=== PATIENT | female | born 1970 | race Caucasian/White ===

== ENCOUNTER 2017-05-12 15:25 | Observation (INO) | payer OTHER ==
--- NOTE | 2017-05-12 15:52 | DR.SOBA ---
HPI - Time Seen Time seen: 16:30 - Primary Care Physician Primary Care Physician: DR. POP - Complaints Chief Complaint:: PT STATES " I AM HAD A TRIPLE BYPASS 4 MONTHS AGO AND MY ABD IS SWELLING AND SOB, AND SWELLING IN MY FEET AND LEGS". Self Treatment fo Chief Complaint: DOUBLE UP ON LASIX - Reviewed Nurses Notes Reviewed: Yes - Source History Provided: Patient - Mode of Arrival Mode of Arrival: Wheelchair - Timing Onset of Chief Complaint: 05/09/17 - Duration Duration: Days - Context PE Risk Factors:: None History of:: CHF Prehospital Care:: Furosemide - Modifying Factors Worsens:: Exertion Improves:: Sitting Up - Associated Signs and Symptoms Associated Signs and Symptoms: Leg Swelling - If Chest Pain Quality: denies: Sharp, Stabbing, Squeezing, Pressure like, Heavy, Crushing, Burning, Aching, Pleuritic, Other - If Cough Cough: None PMH - PMH Past Medical History: Yes Past Medical History: Anxiety, Depression, Hyperthyroidism Past Medical History Comment: FIBRO, AFIB WITH CARIAC ABLASION, Past Surgical History: Yes Surgical History: Angioplasty/Stents Past Surgical History Comment: TRIPLE BYPASS - Family History History of Family Medical Conditions: No - Social History Does patient currently use any type of tobacco product: No Have you used tobacco products in the last 12 months: No Type of Tobacco Use: None Does any household member use tobacco: No Alcohol Use: None Do you use any recreational Drugs:: No Lives With: Family Lives Where: Home - infectious screening In the last 2 months have you had wt loss of >10#?: NO Have you had fever, night sweats or hemotysis?: No Have you traveled outside the country in the last 6 months?: No Isolation: Standard ROS - Review of Systems Constitutional: No Symptoms Reported Eyes: No Symptoms Reported ENTM: No Symptoms Reported Respiratoy: Other (mild basilar rales) Cardiovascular: No Symptoms Reported Gastrointestinal/Abdominal: No Symptoms Reported Genitourinary: No Symptoms Reported Neurological: No Symptoms Reported Musculoskeletal: No Symptoms Reported Integumentary: No Symptoms Reported Hematologic/Lymphatic: No Symptoms Reported Endocrine: No Symptoms Reported Psychiatric: No Symptoms Reported All Other Systems: Reviewed and Negative PE - Vital Signs Vitals: Pulse Rate 75 Respiratory Rate 22 Blood Pressure 118/62 O2 Sat by Pulse Oximetry 97 - General Limitations: No Limitations General Appearance: Alert, In No Apparent Distress - Head Head Exam: Normal Inspection - Eyes Eye exam: Normal Appearance, EOMI. negative: Scleral Icterus, Conjunctival Injection - ENT ENT Exam: Normal Exam, Normal Oropharynx - Neck Neck Exam: Normal Inspection, Full ROM, Trachea Midline - Chest Chest Inspection: Normal Inspection - Respiratory Respiratory Exam: Normal Lung Sounds Bilat. negative: Accessory Muscle Use, Respiratory Distress Respiratory Exam: Bilateral Rales (mild lower lobes) - Cardiovascular Cardiovascular Exam: Regular Rate - Abdominal Exam Abdominal Exam: Normal Inspection, Normal Bowel Sounds, Soft - Extremities Extremities Exam: Edema - Back Back Exam: Normal Inspection, Full ROM - Neurologic Neurological Exam: Alert, Oriented X3, CN II-XII Intact - Psychiatric Psychiatric Exam: Depressed - Skin Skin Exam: Intact, Normal Color Course - Consultation Called: 17:30 Call Returned: 17:30 Consultation Comments: case discussed with Dr. Abel admit observation, give potassium and magnesium. ROR - Labs Reviewed Result Diagrams: 05/14/17 04:25 05/14/17 04:25 Laboratory: WBC 8.0 X10^3/uL (3.6-10.0) 05/12/17 16:11 RBC 4.12 X10^6/uL (3.5-5.4) 05/12/17 16:11 Hgb 12.1 g/dL (12.0-16.0) 05/12/17 16:11 Hct 35.4 % (36.0-47.0) L 05/12/17 16:11 MCV 85.9 fL (80.0-100.0) 05/12/17 16:11 MCH 29.4 pg (27.0-34.0) 05/12/17 16:11 MCHC 34.3 g/dL (33.0-35.0) 05/12/17 16:11 RDW 14.3 % (11.6-16.5) 05/12/17 16:11 Plt Count 262 X10^3/uL (150.0-450.0) 05/12/17 16:11 MPV 8.7 fL (7.4-11.0) 05/12/17 16:11 Neut % 68.7 % (42.0-75.0) 05/12/17 16:11 Lymph % 19.7 % (21.0-51.0) L 05/12/17 16:11 [place] % 6.8 % (0.0-13.0) 05/12/17 16:11 Eos % 4.2 % (0.9-2.9) H 05/12/17 16:11 Baso % 0.6 % (0.2-1.0) 05/12/17 16:11 Neut # 5.5 x10^3/uL (2.2-4.8) H 05/12/17 16:11 Lymph # 1.6 X10^3/uL (1.3-2.9) 05/12/17 16:11 [place] # 0.5 x10^3/uL (0.3-0.8) 05/12/17 16:11 Eos # 0.3 x10^3/uL (0.0-0.2) H 05/12/17 16:11 Baso # 0.0 X10^3/uL (0.0-0.1) 05/12/17 16:11 Absolute Nucleated RBC 0.0 /100WBC 05/12/17 16:11 INR Target Range - 05/12/17 16:11 INR 0.96 (0.8-1.3) 05/12/17 16:11 PTT 33.2 SECONDS (22.9-36.5) 05/12/17 16:11 PTT Comment - 05/12/17 16:11 Sodium 140 mmol/L (136-145) 05/12/17 16:11 Corrected Sodium TNP 05/12/17 16:11 Potassium 3.4 mmol/L (3.5-5.1) L 05/12/17 16:11 Chloride 104 mmol/L (98-107) 05/12/17 16:11 Carbon Dioxide 31.6 mmol/L (21-32) 05/12/17 16:11 BUN 10 mg/dL (7-18) 05/12/17 16:11 Creatinine 0.59 mg/dL (0.55-1.02) 05/12/17 16:11 Est GFR (MDRD) Af Amer > 60 (>60) 05/12/17 16:11 Est GFR (MDRD) Non-Af > 60 (>60) 05/12/17 16:11 Glucose 89 mg/dL (65-99) 05/12/17 16:11 Calcium 8.4 mg/dL (8.5-10.1) L 05/12/17 16:11 Corrected Calcium 9.4 mg/dL (8.5-10.1) 05/12/17 16:11 Magnesium 1.4 mg/dL (1.7-2.9) L 05/12/17 16:11 Total Bilirubin 0.30 mg/dL (0.2-1.0) 05/12/17 16:11 AST 47 Units/L (15-37) H 05/12/17 16:11 ALT 53 Units/L (12-78) 05/12/17 16:11 Alkaline Phosphatase 133 Units/L (46-116) H 05/12/17 16:11 Creatine Kinase 43 Units/L (26-192) 05/12/17 16:11 CK-MB (CK-2) 1.2 ng/mL (0-4.0) 05/12/17 16:11 CK/CKMB % Calc 2.8 % (<4) 05/12/17 16:11 Troponin I 0.03 ng/mL (0-1.5) 05/12/17 16:11 B-Natriuretic Peptide 39.3 pg/mL (0-79) 05/12/17 16:11 Total Protein 6.6 g/dL (6.4-8.2) 05/12/17 16:11 Albumin 2.8 g/dL (3.4-5.0) L 05/12/17 16:11 Globulin 3.8 g/dL (2.5-4.5) 05/12/17 16:11 Albumin/Globulin Ratio 0.7 Ratio (1.1-2.1) L 05/12/17 16:11 - XRAY XRAY Interpreted by: Radiologist XRAY Findings: chest: CHF - EKG Rate: 74 [place]: Normal Rhythm: NSR Block: None ST: Nonsp - Diagnosis Discharge Problem: Hypomagnesemia, Hypokalemia - Discharge Plan Disposition: 01 HOME, SELF-CARE Condition: Stable - Follow ups/Referrals - Instructions
[2017-05-12 16:21] LABS: BASOPHILS % (AUTO) 0.6 % (0.2-1.0); EOSINOPHILS # (AUTO) 0.3 x10^3/uL (0.0-0.2); EOSINOPHILS % (AUTO) 4.2 % (0.9-2.9); HEMATOCRIT 35.4 % (36.0-47.0); HEMOGLOBIN 12.1 g/dL (12.0-16.0); LYMPHOCYTES # (AUTO) 1.6 X10^3/uL (1.3-2.9); LYMPHOCYTES % (AUTO) 19.7 % (21.0-51.0); MEAN CORPUSCULAR HEMOGLOBIN 29.4 pg (27.0-34.0); MEAN CORPUSCULAR HGB CONC 34.3 g/dL (33.0-35.0); MEAN CORPUSCULAR VOLUME 85.9 fL (80.0-100.0); MEAN PLATELET VOLUME 8.7 fL (7.4-11.0); MONOCYTES # (AUTO) 0.5 x10^3/uL (0.3-0.8); MONOCYTES % (AUTO) 6.8 % (0.0-13.0); NEUTROPHILS # (AUTO) 5.5 x10^3/uL (2.2-4.8); NEUTROPHILS % (AUTO) 68.7 % (42.0-75.0); PLATELET COUNT 262 X10^3/uL (150.0-450.0); RED BLOOD COUNT 4.12 X10^6/uL (3.5-5.4); RED CELL DISTRIBUTION WIDTH 14.3 % (11.6-16.5)
--- NOTE | 2017-05-12 16:33 | RAD ---
HISTORY: Chest pain. Study: Shortness of breath. Comparison: None available. Findings: Study is slightly limited secondary to technique. The cardiac silhouette is at the upper limits of n ormal. Postsurgical changes status post CABG. Prominent perihilar vasculature with diffuse alveolar/ interstitial markings. There is blunting of the bilateral costophrenic angles, which may represent s mall pleural effusions. No obvious pneumothorax. The osseous structures appear normal for age. IMPRESSION: Constellation of findings likely representing pulmonary edema secondary to congestive he art failure. Underlying infiltrate not entirely excluded. Reported By:
[2017-05-12 16:38] LABS: BLOOD UREA NITROGEN 10 mg/dL (7-18); CALCIUM 8.4 mg/dL (8.5-10.1); CARBON DIOXIDE 31.6 mmol/L (21-32); CHLORIDE 104 mmol/L (98-107); CREATININE 0.59 mg/dL (0.55-1.02); GLUCOSE 89 mg/dL (65-99); SODIUM 140 mmol/L (136-145); TROPONIN I 0.03 ng/mL (0-1.5); eGFR BLACK RACES > 60 (>60); eGFR NON BLACK RACES > 60 (>60)
[2017-05-12] MEDS ORDERED: LASIX IVP ONE (16:40)
[2017-05-12 16:42] LABS: ALANINE AMINOTRANSFERASE 53 Units/L (12-78); ALBUMIN 2.8 g/dL (3.4-5.0); ALKALINE PHOSPHATASE 133 Units/L (46-116); ASPARTATE AMINO TRANSFERASE 47 Units/L (15-37); CKMB % 2.8 % (<4); COR CA(FOR HYPOALB) 9.4 mg/dL (8.5-10.1); CREATINE KINASE 43 Units/L (26-192); CREATINE KINASE MB 1.2 ng/mL (0-4.0); MAGNESIUM 1.4 mg/dL (1.7-2.9); TOTAL PROTEIN 6.6 g/dL (6.4-8.2)
[2017-05-12] MEDS ORDERED: K-DUR TAB 20 MEQ PO ONE (17:12)
[2017-05-12] MEDS ORDERED: ATIVAN INJ 2 MG VIAL IVP ONE (17:14)
[2017-05-12] MEDS ORDERED: ATIVAN INJ 2 MG VIAL ONE (17:19)
[2017-05-12] MEDS ORDERED: MAGNESIUM SULFATE 40 GM IV 40 GM/1,000 ML BAG IV PRN (17:19)
[2017-05-12] MEDS ORDERED: MAGNESIUM SULFATE 1 GM/100 mL PREMIX 1 GM/100 ML BAG IV ONE (17:22)
[2017-05-12] MEDS ORDERED: NS 250 ML IV 250 ML IV ONE (18:33)
[2017-05-12 20:06] VITALS: BMI 34.5
[2017-05-13 04:49] LABS: ALANINE AMINOTRANSFERASE 42 Units/L (12-78); ALBUMIN 2.4 g/dL (3.4-5.0); ALKALINE PHOSPHATASE 119 Units/L (46-116); ASPARTATE AMINO TRANSFERASE 31 Units/L (15-37); BLOOD UREA NITROGEN 9 mg/dL (7-18); CARBON DIOXIDE 31.2 mmol/L (21-32); CHLORIDE 104 mmol/L (98-107); CHOL/HDL RATIO 2.4 (0.0-5.0); CHOLESTEROL 107 mg/dL (0-200); COR CA(FOR HYPOALB) 9.3 mg/dL (8.5-10.1); COR NA(FOR HYPERGLY) 141 mmol/L (136-145); CREATININE 0.55 mg/dL (0.55-1.02); GLUCOSE 112 mg/dL (65-99); HDL CHOLESTEROL 44 mg/dL (40-60); SODIUM 141 mmol/L (136-145); TOTAL PROTEIN 5.8 g/dL (6.4-8.2); TRIGLYCERIDES 96 mg/dL (0-150); eGFR BLACK RACES > 60 (>60); eGFR NON BLACK RACES > 60 (>60)
[2017-05-13] MEDS ORDERED: K-DUR TAB 20 MEQ PO PRN (05:53)
[2017-05-13] MEDS ORDERED: K-RIDER 10 MEQ/NS 100 ML 10 MEQ/100 ML BAG IV PRN (05:53)
[2017-05-13] MEDS ORDERED: K-LYTE EFFERVESCENT PO PRN (05:53)
[2017-05-13] MEDS ORDERED: POTASSIUM CHLORIDE LIQ 20 MEQ UDC PO PRN (05:53)
[2017-05-13] MEDS ORDERED: MAGNESIUM SULFATE 1 GM/100 mL PREMIX 1 GM/100 ML BAG IV ONE (06:06)
[2017-05-13] MEDS: MICRO K EXTEN CAP 10 MEQ PO SCH (09:34)
[2017-05-13] MEDS: LASIX IVP SCH (09:34)
[2017-05-13] MEDS ORDERED: ULTRAM PO PRN (10:03)
[2017-05-13] MEDS: K-DUR TAB 20 MEQ PO SCH (10:07)
--- NOTE | 2017-05-13 10:46 | DR.H&P ---
H&P - History & Physical for Day of: H&P Date: 05/13/17 - Chief Complaint Chief Complaint: abdominal swelling, shortness of breath and swelling in lower extremities - Allergies Allergies/Adverse Reactions: Allergies Allergy/AdvReac Type Severity Reaction Status Date / Time codeine Allergy Verified 05/12/17 17:14 - History of Present Illness History of Present Illness: Patient is a 46yo female who presented to the emergency room with complaints of abdominal swelling, shortness of breath and swelling in lower extremities. Patient had a Triple bypass 4months ago and has a history of A-Fib, Cardiac ablation, fibromyalgia, anxiety, depression, hypothyroidism. Physical exam reveals bilateral lower extremity edema and bilateral rale in the middle lobes. Vital signs on arrival 98.1, 75, 22, 97%, 118/62. Labs are within normal limits with the exception of HCT 35.4, Lymph% 19.7, Eos% 4.2, Neut# 5.5, Eos# 0.3, Potassium 3.4, Clacium 8.4, Magnesium 1.4, AST 47, Alkaline phosphatase 1333, albumin 2.8, Albumin/globulin ratio 0.7., Chest xray showed constellation of findings likely representing pulmonary edema secondary to congestive heart failure, underlying infiltrate not entirely excluded. EKS showed NSR rate of 74 with prolonged QT interval. Patient admitted with diagnosis of Hypomagnesaemia, Hypokalemia, and CHF started on Potassium replacement protocol given mag rider 2gm and lasix 40mg IV Daily. - Past Medical History Past Medical History: Anxiety, Depression, Hyperthyroidism - Past Surgical History Surgical History: Angioplasty/Stents, Cholecystectomy, Hysterectomy, Other - Family History Family Medical History: [place] - Social History Does patient currently use any type of tobacco product: No Have you used tobacco products in the last 12 months: No Type of Tobacco Use: None Does any household member use tobacco: No Alcohol Use: None Drug Use: None - Medications Home Medications: Aspirin [ASPIRIN 81 MG CHEWTAB *] 1 tab PO DAILY 05/12/17 [History Confirmed ] Atorvastatin Calcium [LIPITOR Tab 40 mg *] 2 tab PO HS 05/12/17 [History Confirmed 05/12/17] Duloxetine HCl [CYMBALTA 60 MG *] 1 tab PO DAILY 05/12/17 [History Confirmed ] Furosemide [LASIX TAB 20 MG *] 1 tab PO BID 05/12/17 [History Confirmed 05/12/17 ] Levothyroxine Sodium [SYNTHROID 25 mcg *] 1 tab PO DAILY 05/12/17 [History Confirmed 05/12/17] Loratadine 10 mg 24-Hr Tab [LORATADINE 10 MG *] 1 tab PO DAILY 05/12/17 [ History Confirmed 05/12/17] Lorazepam [Ativan 2 mg] 1 tab PO HS 05/12/17 [History Confirmed 05/12/17] Metoprolol Tartrate [LOPRESSOR 25 MG *] 1 tab PO BID 05/12/17 [History Confirmed 05/12/17] Pantoprazole Sodium 40 mg [PROTONIX 40 MG *] 1 tab PO DAILY 05/12/17 [History Confirmed 05/12/17] Potassium Chloride [K-DUR TAB 20 mEq *] 1 tab PO DAILY 05/12/17 [History Confirmed 05/12/17] Pregabalin [LYRICA 75 MG *] 1 tab PO BID 05/12/17 [History Confirmed 05/12/17] Ticagrelor [Brilinta] 1 tab PO BID 05/12/17 [History Confirmed 05/12/17] Tramadol HCl [ULTRAM 50 MG *] 1 tab PO Q6HR PRN 05/12/17 [History Confirmed ] - Review of Systems Constitutional: No Symptoms Reported Eyes: No Symptoms Reported ENT: No Symptoms Reported Respiratory: Shortness of Breath Cardiovascular: No Symptoms Reported Gastrointestinal: Abdominal Pain (and distention) Genitourinary: No Symptoms Reported Musculoskeletal: No Symptoms Reported Skin: No Symptoms Reported Neurological: No Symptoms Reported - Physical Exam Vital Signs: 98.1, 75, 22, 97%, 118/62 Oriented: Normal Eyes: Normal Ear: Normal Nose: Normal Throat: Normal Respiratory: Clear Throughout, Rhonchi Throughout Cardiovascular: Normal : Normal Auscultation: Bowel Sounds: Normal Palpation: Normal Tenderness: Normal Skin: Normal Musculoskeletal: Normal Psychiatric: Normal Mood Description: Calm, Appropriate Affect: Normal Speech Pattern: Clear, Appropriate - Assessment/Plan (1) Lower extremity edema Status: Acute (2) CHF (congestive heart failure) Qualifiers: Congestive heart failure type: C Congestive heart failure chronicity: C Status: Acute Plan: lasix 40mg IV Daily (3) Hypokalemia Status: Acute Plan: potassium replacement protocol (4) Hypomagnesemia Status: Acute Plan: mag rider 2gm
--- NOTE | 2017-05-13 10:51 | PCM.PROG ---
Progress Note - Progress Note for Day of Date: 05/13/17 - Subjective Subjective: Patient is a 46yo female admitted with diagnosis of Hypomagnesaemia , Hypokalemia, and CHF . Patient is awake in bed this am and states she is feeling somewhat better she is noted to have lower extremity edema and rhochi bilateral. She is getting another mag rider this am as her magnesium was 1.6. Vital signs this am 981, 75, 18, 92%, 109/54. Labs this am are within normal limits with the exception of Potassium 3.2, Glucose 112, Calcium 8.0, Magnesium 1.6, Alkaline phosphatase 119, Total protein 5.8, Albumin 2.4, Albumin/globulin ratio 0.7. We are going to continue her on potassium replacement protocol and gently hydrate her with NS with 20meq KCL @50ml/hr. We will follow up with patient in the am with repeat labs and chest xray. - Past Medical Family Social History Past Med/Fam/Surg Hx: No changes since H&P Allergies: Allergies codeine Allergy (Verified 05/12/17 17:14) - Review of Systems ROS: No change since H&P - Vital Signs and I&O's Vital Signs: Temperature 98.1 F Pulse Rate [Apical] 75 Respiratory Rate 18 Blood Pressure [Left Arm] 109/54 O2 Sat by Pulse Oximetry 92 Intake and Output: Intake & Output 05/10/17 05/11/17 05/12/17 05/13/17 11:59 11:59 11:59 11:59 Intake Total 700 Balance 700 - Physical Exam Oriented: Normal Eyes: Normal Ear: Normal Nose: Normal Throat: Normal Respiratory: Rhonchi Cardiovascular: Edema (lower extremity ) : Normal Auscultation: Bowel Sounds: Normal Palpation: Normal Tenderness: Diffuse Skin: Normal Musculoskeletal: Normal Psychiatric: Normal Mood Description: Calm, Appropriate Affect: Normal Speech Pattern: Clear, Appropriate - Laboratory and Diagnostics Result Diagrams: 05/12/17 16:11 05/13/17 09:55 Labs: Laboratory WBC 8.0 X10^3/uL (3.6-10.0) 05/12/17 16:11 RBC 4.12 X10^6/uL (3.5-5.4) 05/12/17 16:11 Hgb 12.1 g/dL (12.0-16.0) 05/12/17 16:11 Hct 35.4 % (36.0-47.0) L 05/12/17 16:11 MCV 85.9 fL (80.0-100.0) 05/12/17 16:11 MCH 29.4 pg (27.0-34.0) 05/12/17 16:11 MCHC 34.3 g/dL (33.0-35.0) 05/12/17 16:11 RDW 14.3 % (11.6-16.5) 05/12/17 16:11 Plt Count 262 X10^3/uL (150.0-450.0) 05/12/17 16:11 MPV 8.7 fL (7.4-11.0) 05/12/17 16:11 Neut % 68.7 % (42.0-75.0) 05/12/17 16:11 Lymph % 19.7 % (21.0-51.0) L 05/12/17 16:11 [place] % 6.8 % (0.0-13.0) 05/12/17 16:11 Eos % 4.2 % (0.9-2.9) H 05/12/17 16:11 Baso % 0.6 % (0.2-1.0) 05/12/17 16:11 Neut # 5.5 x10^3/uL (2.2-4.8) H 05/12/17 16:11 Lymph # 1.6 X10^3/uL (1.3-2.9) 05/12/17 16:11 [place] # 0.5 x10^3/uL (0.3-0.8) 05/12/17 16:11 Eos # 0.3 x10^3/uL (0.0-0.2) H 05/12/17 16:11 Baso # 0.0 X10^3/uL (0.0-0.1) 05/12/17 16:11 Absolute Nucleated RBC 0.0 /100WBC 05/12/17 16:11 INR Target Range - 05/12/17 16:11 INR 0.96 (0.8-1.3) 05/12/17 16:11 PTT 33.2 SECONDS (22.9-36.5) 05/12/17 16:11 PTT Comment - 05/12/17 16:11 Sodium 141 mmol/L (136-145) 05/13/17 03:35 Corrected Sodium 141 mmol/L (136-145) 05/13/17 03:35 Potassium 3.6 mmol/L (3.5-5.1) 05/13/17 09:55 Chloride 104 mmol/L (98-107) 05/13/17 03:35 Carbon Dioxide 31.2 mmol/L (21-32) 05/13/17 03:35 BUN 9 mg/dL (7-18) 05/13/17 03:35 Creatinine 0.55 mg/dL (0.55-1.02) 05/13/17 03:35 Est GFR (MDRD) Af Amer > 60 (>60) 05/13/17 03:35 Est GFR (MDRD) Non-Af > 60 (>60) 05/13/17 03:35 Glucose 112 mg/dL (65-99) H 05/13/17 03:35 Calcium 8.0 mg/dL (8.5-10.1) L 05/13/17 03:35 Corrected Calcium 9.3 mg/dL (8.5-10.1) 05/13/17 03:35 Magnesium 1.6 mg/dL (1.7-2.9) L 05/13/17 03:35 Total Bilirubin 0.30 mg/dL (0.2-1.0) 05/13/17 03:35 AST 31 Units/L (15-37) 05/13/17 03:35 ALT 42 Units/L (12-78) 05/13/17 03:35 Alkaline Phosphatase 119 Units/L (46-116) H 05/13/17 03:35 Creatine Kinase 43 Units/L (26-192) 05/12/17 16:11 CK-MB (CK-2) 1.2 ng/mL (0-4.0) 05/12/17 16:11 CK/CKMB % Calc 2.8 % (<4) 05/12/17 16:11 Troponin I 0.03 ng/mL (0-1.5) 05/12/17 16:11 B-Natriuretic Peptide 39.3 pg/mL (0-79) 05/12/17 16:11 Total Protein 5.8 g/dL (6.4-8.2) L 05/13/17 03:35 Albumin 2.4 g/dL (3.4-5.0) L 05/13/17 03:35 Globulin 3.4 g/dL (2.5-4.5) 05/13/17 03:35 Albumin/Globulin Ratio 0.7 Ratio (1.1-2.1) L 05/13/17 03:35 Triglycerides 96 mg/dL (0-150) 05/13/17 03:35 Cholesterol 107 mg/dL (0-200) 05/13/17 03:35 LDL Cholesterol, Calc 44 mg/dL (0-100) 05/13/17 03:35 HDL Cholesterol 44 mg/dL (40-60) 05/13/17 03:35 Cholesterol/HDL Ratio 2.4 (0.0-5.0) 05/13/17 03:35 Radiology Reviewed: Yes - Plan (1) Lower extremity edema Status: Acute Plan: lasix 40mg IV DAily (2) CHF (congestive heart failure) Status: Acute Qualifiers: Congestive heart failure type: C Congestive heart failure chronicity: C Plan: lasix 40mg IV Daily (3) Hypokalemia Status: Acute Plan: potassium replacement protocol, NS with 20meq KCL@ 50 (4) Hypomagnesemia Status: Acute Plan: repeat labs in the am magrider 1gm this am (5) Hypothyroidism Status: Chronic Qualifiers: Hypothyroidism type: H Plan: continue synthroid 25mcg daily (6) Depression Status: Chronic Qualifiers: Depression Type: D Major depression recurrence: M Active/Remission status : A Major depression episode severity: M Psychotic features: P Trimester: T Plan: continue Cymbalta 60mg daily, Brillinta 90mg BID (7) Insomnia Status: Chronic Qualifiers: Insomnia type: I Plan: conitnue Ativan 1mg at bedtime (8) Hyperlipidemia Status: Chronic Qualifiers: Hyperlipidemia type: H Plan: continue Lipitor 80mg at bedtime
[2017-05-13] MEDS ORDERED: NS + KCL 20 MEQ/L 1,000 ML IV SCH (11:00)
[2017-05-13] MEDS: ASPIRIN 81 MG CHEWTAB PO SCH (11:24)
[2017-05-13] MEDS: BRILINTA PO SCH ×2 (11:24→21:41)
[2017-05-13] MEDS: SYNTHROID 25 mcg TAB PO SCH (11:24)
[2017-05-13] MEDS: CYMBALTA PO SCH (11:25)
[2017-05-13] MEDS: LYRICA CAP 75 MG PO SCH ×2 (11:25→21:41)
[2017-05-13] MEDS: CLARITIN PO SCH (11:25)
[2017-05-13] MEDS: PROTONIX TAB 40 MG PO SCH (11:25)
[2017-05-13] MEDS ORDERED: MORPHINE SULFATE INJ 2 MG IVP PRN (17:13)
[2017-05-13] MEDS ORDERED: ZOFRAN INJ 4 MG VIAL IVP PRN (18:10)
[2017-05-13] MEDS ORDERED: LORAZEPAM PO SCH (21:00)
[2017-05-13] MEDS ORDERED: ATIVAN TAB 1 MG PO SCH (21:00)
[2017-05-13] MEDS ORDERED: LIPITOR TAB 40 MG PO SCH (21:00)
[2017-05-14 05:28] LABS: ALANINE AMINOTRANSFERASE 34 Units/L (12-78); ALBUMIN 2.4 g/dL (3.4-5.0); ALKALINE PHOSPHATASE 123 Units/L (46-116); ASPARTATE AMINO TRANSFERASE 24 Units/L (15-37); BLOOD UREA NITROGEN 10 mg/dL (7-18); CALCIUM 7.8 mg/dL (8.5-10.1); CARBON DIOXIDE 29.3 mmol/L (21-32); CHLORIDE 105 mmol/L (98-107); COR CA(FOR HYPOALB) 9.1 mg/dL (8.5-10.1); CREATININE 0.48 mg/dL (0.55-1.02); GLUCOSE 107 mg/dL (65-99); SODIUM 139 mmol/L (136-145); TOTAL PROTEIN 5.7 g/dL (6.4-8.2); eGFR BLACK RACES > 60 (>60); eGFR NON BLACK RACES > 60 (>60)
[2017-05-14 05:29] LABS: BASOPHILS % (AUTO) 0.6 % (0.2-1.0); EOSINOPHILS # (AUTO) 0.4 x10^3/uL (0.0-0.2); EOSINOPHILS % (AUTO) 6.2 % (0.9-2.9); HEMATOCRIT 30.2 % (36.0-47.0); HEMOGLOBIN 10.3 g/dL (12.0-16.0); LYMPHOCYTES # (AUTO) 1.9 X10^3/uL (1.3-2.9); MEAN CORPUSCULAR HEMOGLOBIN 29.4 pg (27.0-34.0); MEAN CORPUSCULAR HGB CONC 34.1 g/dL (33.0-35.0); MONOCYTES # (AUTO) 0.6 x10^3/uL (0.3-0.8); MONOCYTES % (AUTO) 8.6 % (0.0-13.0); NEUTROPHILS # (AUTO) 3.6 x10^3/uL (2.2-4.8); NEUTROPHILS % (AUTO) 55.6 % (42.0-75.0); PLATELET COUNT 228 X10^3/uL (150.0-450.0); RED BLOOD COUNT 3.52 X10^6/uL (3.5-5.4); RED CELL DISTRIBUTION WIDTH 13.9 % (11.6-16.5); WHITE BLOOD COUNT 6.5 X10^3/uL (3.6-10.0)
--- NOTE | 2017-05-14 06:52 | RAD ---
HISTORY: Follow up congestive heart failure Study: Chest two-view Comparison: None Findings: The patient is status post median sternotomy and CABG. The heart is mildly enlarged. No definite con gestive heart failure remains on this examination. Lungs are hyperinflated but free of acute alveola r infiltrates. No significant pleural effusions are identified. The bony thorax is unremarkable. IMPRESSION: Cardiomegaly without congestive heart failure Lungs hyperinflated but free of acute infiltrates Reported By:
[2017-05-14] MEDS: SYNTHROID 25 mcg TAB PO SCH (09:24)
[2017-05-14] MEDS: CYMBALTA PO SCH (09:24)
[2017-05-14] MEDS: CLARITIN PO SCH (09:24)
[2017-05-14] MEDS: PROTONIX TAB 40 MG PO SCH (09:24)
[2017-05-14] MEDS: LYRICA CAP 75 MG PO SCH (09:24)
[2017-05-14] MEDS: MICRO K EXTEN CAP 10 MEQ PO SCH (09:25)
[2017-05-14] MEDS: ASPIRIN 81 MG CHEWTAB PO SCH (09:26)
[2017-05-14] MEDS: K-DUR TAB 20 MEQ PO SCH (09:26)
[2017-05-14] MEDS: LASIX IVP SCH (09:26)
[2017-05-14] MEDS: BRILINTA PO SCH (09:26)
[2017-05-14 11:18] VITALS: BP 90/53
--- NOTE | 2017-05-14 19:33 | DR.CARTERD ---
- Discharge Summary for: Discharge Summary for Date of:: 05/14/17 - Admission Date Date of Admission: 05/12/17 - Admission Diagnoses Admission Diagnosis: CHF. Hypokalemia. Hypomagnesemia. Lower extremity edema - Discharge Date Discharge Date: 05/14/17 - Discharge Diagnoses Discharge Diagnosis: CHF Hypokalemia Hypomagnesemia Lower extremity edema - Hospital Course Hospital Course: Patient is a 46yo female who presented to the emergency room with complaints of abdominal swelling, shortness of breath and swelling in lower extremities. Patient had a Triple bypass 4months ago and has a history of A-Fib, Cardiac ablation, fibromyalgia, anxiety, depression, hypothyroidism. Physical exam reveals bilateral lower extremity edema and bilateral rale in the middle lobes. Vital signs on arrival 98.1, 75, 22, 97%, 118/62. Labs are within normal limits with the exception of HCT 35.4, Lymph% 19.7, Eos% 4.2, Neut# 5.5, Eos# 0.3, Potassium 3.4, Clacium 8.4, Magnesium 1.4, AST 47, Alkaline phosphatase 1333, albumin 2.8, Albumin/globulin ratio 0.7., Chest xray showed constellation of findings likely representing pulmonary edema secondary to congestive heart failure, underlying infiltrate not entirely excluded. EKS showed NSR rate of 74 with prolonged QT interval. Patient admitted with diagnosis of Hypomagnesaemia, Hypokalemia, and CHF started on Potassium replacement protocol given mag rider 2gm and lasix 40mg IV Daily. Patient was also started on NS with 20meq of KCL @ 50/ml/hr. Upon rounds this am patient is feeling better, lungs are clear and lower extremity edema has imporved, she has received a total of 3 mag riders and with the potassium replacement protocol her potassium has came up to 3.7. Vital signs this am are 97.8, 84, 18, 93%, 90/53.Labs are within normal limits with the exception of Hgb 10.3, Hct 30.2, Eos% 6.2, Eos# 0.4, Creatinine 0.48, glucose 107, Calcium 7.8, Alkaline phosphatase 123, Total protein 5.7, Albumin 2 ,4, Albumin/globulin ratio 0.7. Chest xray this am show cardiomegaly without congestive heart failure and lungs that are hyperinflated but free of acute infiltrates. We are going to discharge patient in stable condition, she is to follow up in 1 week and will continue her home medications with the addition of magnesium 400mg PO BID. Labs: Labs are within normal limits with the exception of Hgb 10.3, Hct 30.2, Eos% 6.2 , Eos# 0.4, Creatinine 0.48, glucose 107, Calcium 7.8, Alkaline phosphatase 123 , Total protein 5.7, Albumin 2,4, Albumin/globulin ratio 0.7. - Discharge Medications Discharge Medications: Aspirin [ASPIRIN 81 MG CHEWTAB *] 1 tab PO DAILY 05/12/17 [History] Atorvastatin Calcium [LIPITOR Tab 40 mg *] 2 tab PO HS 05/12/17 [History] Duloxetine HCl [CYMBALTA 60 MG *] 1 tab PO DAILY 05/12/17 [History] Furosemide [LASIX TAB 20 MG *] 1 tab PO BID 05/12/17 [History] Levothyroxine Sodium [SYNTHROID 25 mcg *] 1 tab PO DAILY 05/12/17 [History] Loratadine 10 mg 24-Hr Tab [LORATADINE 10 MG *] 1 tab PO DAILY 05/12/17 [History ] Lorazepam [Ativan 2 mg] 1 tab PO HS 05/12/17 [History] Metoprolol Tartrate [LOPRESSOR 25 MG *] 1 tab PO BID 05/12/17 [History] Pantoprazole Sodium 40 mg [PROTONIX 40 MG *] 1 tab PO DAILY 05/12/17 [History] Potassium Chloride [K-DUR TAB 20 mEq *] 1 tab PO DAILY 05/12/17 [History] Pregabalin [LYRICA 75 MG *] 1 tab PO BID 05/12/17 [History] Ticagrelor [Brilinta] 1 tab PO BID 05/12/17 [History] Tramadol HCl [ULTRAM 50 MG *] 1 tab PO Q6HR PRN 05/12/17 [History] Magnesium Oxide [Magnesium] 400 mg PO BID #60 tablet 05/14/17 [Rx] - Discharge Disposition Discharge Disposition: Home with follow up in 1 week
== END 2017-05-14 14:00 | disposition home or self-care (01) ==
LOC: ER 15:58 → MED/SURG 17:37
PROVIDERS: ADMIT Internal Medicine; ATTEND Internal Medicine
DX: I50.9 Heart failure, unspecified (principal); R06.02 Shortness of breath; R60.0 Localized edema; R19.09 Other intra-abdominal and pelvic swelling, mass and lump; M79.89 Other specified soft tissue disorders; E03.8 Other specified hypothyroidism; E87.6 Hypokalemia; E83.42 Hypomagnesemia; E78.2 Mixed hyperlipidemia; F32.89 Other specified depressive episodes; G47.09 Other insomnia; R94.31 Abnormal electrocardiogram [ECG] [EKG]
CPT/HCPCS: 36415; 71010; 71020; 80053; 80061; 82550; 82553; 83735; 83880; 84132; 84484; 85025; 85610; 85730; 93005; 93010; 94760; 96365; 96374; 96375; 97535; 99284; A4222; G8978; G8979; G8980; G0378; J1940; J2060; J2270; J2405

== ENCOUNTER 2017-07-28 15:56 | Inpatient (IN) | payer OTHER ==
[2017-07-28] MEDS: LASIX IVP SCH ×2 (17:39→20:33)
[2017-07-28 17:48] LABS: BASOPHILS # (AUTO) 0.1 X10^3/uL (0.0-0.1); BASOPHILS % (AUTO) 1.1 % (0.2-1.0); EOSINOPHILS # (AUTO) 0.2 x10^3/uL (0.0-0.2); EOSINOPHILS % (AUTO) 3.1 % (0.9-2.9); HEMATOCRIT 37.9 % (36.0-47.0); HEMOGLOBIN 12.9 g/dL (12.0-16.0); LYMPHOCYTES # (AUTO) 1.8 X10^3/uL (1.3-2.9); LYMPHOCYTES % (AUTO) 29.1 % (21.0-51.0); MEAN CORPUSCULAR HEMOGLOBIN 29.2 pg (27.0-34.0); MEAN CORPUSCULAR HGB CONC 34.2 g/dL (33.0-35.0); MEAN CORPUSCULAR VOLUME 85.4 fL (80.0-100.0); MEAN PLATELET VOLUME 8.8 fL (7.4-11.0); MONOCYTES % (AUTO) 16.2 % (0.0-13.0); NEUTROPHILS # (AUTO) 3.1 x10^3/uL (2.2-4.8); NEUTROPHILS % (AUTO) 50.5 % (42.0-75.0); PLATELET COUNT 188 X10^3/uL (150.0-450.0); RED BLOOD COUNT 4.43 X10^6/uL (3.5-5.4); RED CELL DISTRIBUTION WIDTH 14.9 % (11.6-16.5); WHITE BLOOD COUNT 6.1 X10^3/uL (3.6-10.0)
[2017-07-28 17:56] LABS: ALANINE AMINOTRANSFERASE 64 Units/L (12-78); ALBUMIN 3.3 g/dL (3.4-5.0); ALKALINE PHOSPHATASE 141 Units/L (46-116); ASPARTATE AMINO TRANSFERASE 74 Units/L (15-37); BLOOD UREA NITROGEN 6 mg/dL (7-18); CALCIUM 8.7 mg/dL (8.5-10.1); CHLORIDE 103 mmol/L (98-107); CKMB % 0.9 % (<4); COR CA(FOR HYPOALB) 9.3 mg/dL (8.5-10.1); CREATINE KINASE 106 Units/L (26-192); CREATININE 0.81 mg/dL (0.55-1.02); SODIUM 141 mmol/L (136-145); TOTAL PROTEIN 7.2 g/dL (6.4-8.2); TROPONIN I < 0.02 ng/mL (0-1.5); eGFR BLACK RACES > 60 (>60); eGFR NON BLACK RACES > 60 (>60)
--- NOTE | 2017-07-28 18:33 | RAD ---
AP Chest Indication: Shortness of breath Comparison: 05/14/2017 Findings: The trachea is midline. The cardiac silhouette is enlarged, unchanged. Stable post CABG changes are noted. The lungs are clear without focal infiltrate or effusion. The bony thorax is unremarkable. IMPRESSION: 1. Stable cardiomegaly post CABG without acute airspace disease or CHF. Reported By:
[2017-07-28] MEDS ORDERED: K-LYTE EFFERVESCENT PO PRN (18:46)
[2017-07-28] MEDS ORDERED: K-RIDER 10 MEQ/NS 100 ML 10 MEQ/100 ML BAG IV PRN (18:46)
[2017-07-28] MEDS ORDERED: POTASSIUM CHLORIDE LIQ 20 MEQ UDC PO PRN (18:46)
[2017-07-28] MEDS: NORCO 5/325 MG TAB PO PRN (19:11)
[2017-07-28 20:11] VITALS: BMI 34.5
[2017-07-28] MEDS: K-DUR TAB 20 MEQ PO PRN (20:34)
[2017-07-28 21:15] LABS: CKMB % 0.9 % (<4); CREATINE KINASE 109 Units/L (26-192); CREATINE KINASE MB < 1.0 ng/mL (0-4.0); TROPONIN I < 0.02 ng/mL (0-1.5)
[2017-07-29] MEDS: K-DUR TAB 20 MEQ PO PRN
[2017-07-29] MEDS: AMBIEN PO PRN ×2 (00:01→21:14)
[2017-07-29] MEDS: NORCO 5/325 MG TAB PO PRN ×2 (01:08→08:06)
[2017-07-29 01:49] LABS: CREATINE KINASE 96 Units/L (26-192); CREATINE KINASE MB < 1.0 ng/mL (0-4.0); TROPONIN I < 0.02 ng/mL (0-1.5)
[2017-07-29 03:06] LABS: ALANINE AMINOTRANSFERASE 67 Units/L (12-78); ALBUMIN 3.1 g/dL (3.4-5.0); ALKALINE PHOSPHATASE 147 Units/L (46-116); ASPARTATE AMINO TRANSFERASE 86 Units/L (15-37); BLOOD UREA NITROGEN 7 mg/dL (7-18); CALCIUM 8.5 mg/dL (8.5-10.1); CARBON DIOXIDE 32.9 mmol/L (21-32); CHLORIDE 100 mmol/L (98-107); COR CA(FOR HYPOALB) 9.2 mg/dL (8.5-10.1); CREATININE 0.79 mg/dL (0.55-1.02); SODIUM 140 mmol/L (136-145); TOTAL PROTEIN 6.9 g/dL (6.4-8.2); eGFR BLACK RACES > 60 (>60); eGFR NON BLACK RACES > 60 (>60)
[2017-07-29 05:54] LABS: BASOPHILS # (AUTO) 0.1 X10^3/uL (0.0-0.1); EOSINOPHILS # (AUTO) 0.2 x10^3/uL (0.0-0.2); EOSINOPHILS % (AUTO) 3.2 % (0.9-2.9); HEMOGLOBIN 12.9 g/dL (12.0-16.0); LYMPHOCYTES # (AUTO) 1.6 X10^3/uL (1.3-2.9); LYMPHOCYTES % (AUTO) 26.3 % (21.0-51.0); MEAN CORPUSCULAR VOLUME 85.3 fL (80.0-100.0); MEAN PLATELET VOLUME 9.4 fL (7.4-11.0); MONOCYTES % (AUTO) 16.5 % (0.0-13.0); NEUTROPHILS # (AUTO) 3.2 x10^3/uL (2.2-4.8); PLATELET COUNT 213 X10^3/uL (150.0-450.0); RED BLOOD COUNT 4.45 X10^6/uL (3.5-5.4)
[2017-07-29] MEDS ORDERED: ZOFRAN INJ 4 MG VIAL IVP PRN (07:52)
--- NOTE | 2017-07-29 08:06 | RAD ---
HISTORY: Shortness of breath Study: Single-view chest, done portably Comparison: July 28, 2017 Findings: There are changes of coronary artery bypass surgery with median sternotomy sutures and metallic sutur es indicating coronary artery bypass grafts. The trachea is midline. Heart size is upper normal. Ther e is very mild hyperinflation of the lungs but no infiltrate, CHF, pleural fluid or pneumothorax is s een. Osseous structures are intact. IMPRESSION: Changes of CABG. Upper normal heart size. Mild hyperinflation of the lungs without acute abnormality. Reported By:
[2017-07-29] MEDS: LASIX IVP SCH ×2 (08:38→20:41)
[2017-07-29] MEDS ORDERED: ULTRAM PO PRN (09:40)
[2017-07-29] MEDS ORDERED: LASIX IVP ONE (09:46)
[2017-07-29] MEDS: ASPIRIN 81 MG CHEWTAB PO SCH (10:23)
[2017-07-29] MEDS: CYMBALTA PO SCH (10:24)
[2017-07-29] MEDS: CLARITIN PO SCH (10:24)
[2017-07-29] MEDS: PROTONIX TAB 40 MG PO SCH (10:24)
[2017-07-29] MEDS: BRILINTA PO SCH ×2 (10:24→20:39)
[2017-07-29] MEDS: MAG-OX TAB PO SCH ×2 (10:24→20:39)
[2017-07-29] MEDS: LYRICA CAP 75 MG PO SCH ×2 (10:24→20:38)
[2017-07-29] MEDS: NORCO 10/325 TAB PO PRN ×2 (10:25→16:35)
[2017-07-29] MEDS: SYNTHROID 25 mcg TAB PO SCH (10:25)
--- NOTE | 2017-07-29 10:28 | DR.UPDATE ---
H&P Update History and Physical Update: WAS SEEN IN THE OFFICE ON 07/28/17. A H&P WAS COMPLETED PRIOR TO ADMISSION. PATIENT HAS BEEN SEEN AND EXAMINED WITH NO CHANGES NOTED TO H&P Changes noted: NO Yes with the following:
[2017-07-29] MEDS: CRESTOR TAB 10 MG PO SCH (20:38)
[2017-07-29] MEDS: XANAX PO SCH (20:39)
[2017-07-29] MEDS: LOPRESSOR TAB 25 MG PO SCH (20:39)
[2017-07-29] MEDS: PHENERGAN INJ 25 MG IV PRN (20:40)
[2017-07-29] MEDS ORDERED: PATIENT'S HOME MEDICATION (Rosuvastatin Calcium [Crestor] 40 MG) PO SCH (21:00)
[2017-07-29] MEDS ORDERED: ALPRAZOLAM 2 MG PO SCH (21:00)
[2017-07-30] MEDS: NORCO 10/325 TAB PO PRN ×4 (02:51→21:25)
[2017-07-30 06:16] LABS: BASOPHILS # (AUTO) 0.1 X10^3/uL (0.0-0.1); BASOPHILS % (AUTO) 0.9 % (0.2-1.0); EOSINOPHILS # (AUTO) 0.3 x10^3/uL (0.0-0.2); EOSINOPHILS % (AUTO) 4.9 % (0.9-2.9); HEMATOCRIT 41.3 % (36.0-47.0); HEMOGLOBIN 14.3 g/dL (12.0-16.0); LYMPHOCYTES # (AUTO) 1.8 X10^3/uL (1.3-2.9); MEAN CORPUSCULAR HEMOGLOBIN 29.6 pg (27.0-34.0); MEAN CORPUSCULAR HGB CONC 34.7 g/dL (33.0-35.0); MEAN CORPUSCULAR VOLUME 85.5 fL (80.0-100.0); MEAN PLATELET VOLUME 9.2 fL (7.4-11.0); MONOCYTES # (AUTO) 0.9 x10^3/uL (0.3-0.8); NEUTROPHILS % (AUTO) 56.2 % (42.0-75.0); PLATELET COUNT 247 X10^3/uL (150.0-450.0); RED BLOOD COUNT 4.83 X10^6/uL (3.5-5.4); RED CELL DISTRIBUTION WIDTH 15.1 % (11.6-16.5)
[2017-07-30 07:09] LABS: ALANINE AMINOTRANSFERASE 79 Units/L (12-78); ALBUMIN 3.5 g/dL (3.4-5.0); ALKALINE PHOSPHATASE 162 Units/L (46-116); ASPARTATE AMINO TRANSFERASE 89 Units/L (15-37); BLOOD UREA NITROGEN 9 mg/dL (7-18); CALCIUM 9.1 mg/dL (8.5-10.1); CARBON DIOXIDE 30.8 mmol/L (21-32); CHLORIDE 98 mmol/L (98-107); CREATININE 0.73 mg/dL (0.55-1.02); SODIUM 140 mmol/L (136-145); TOTAL PROTEIN 7.8 g/dL (6.4-8.2); eGFR BLACK RACES > 60 (>60); eGFR NON BLACK RACES > 60 (>60)
[2017-07-30] MEDS: BRILINTA PO SCH ×2 (08:05→21:25)
[2017-07-30] MEDS: MAG-OX TAB PO SCH ×2 (08:06→21:25)
[2017-07-30] MEDS: ASPIRIN 81 MG CHEWTAB PO SCH (08:06)
[2017-07-30] MEDS: LYRICA CAP 75 MG PO SCH ×3 (08:06→21:24)
[2017-07-30] MEDS: PROTONIX TAB 40 MG PO SCH (08:06)
[2017-07-30] MEDS: LOPRESSOR TAB 25 MG PO SCH ×2 (08:07→21:26)
[2017-07-30] MEDS: CYMBALTA PO SCH (08:07)
[2017-07-30] MEDS: LASIX IVP SCH (08:07)
[2017-07-30] MEDS: CLARITIN PO SCH (08:07)
[2017-07-30] MEDS: SYNTHROID 25 mcg TAB PO SCH (08:07)
[2017-07-30] MEDS: K-DUR TAB 20 MEQ PO PRN ×2 (08:08→11:53)
[2017-07-30] MEDS: PHENERGAN INJ 25 MG IV PRN ×3 (08:57→21:26)
--- NOTE | 2017-07-30 12:46 | PCM.PROG ---
Progress Note - Progress Note for Day of Date: 07/29/17 - Subjective Subjective: IS ALERT AND ORIENTED ON MORNING ROUNDS. SHE IS SITTING UP IN BED. SHE IS NOTED WITH COMPLAINTS OF SHORTNESS OF BREATH AND SWELLING ALL OVER. SHE ALSO REPORTS RIGHT SHOULDER PAIN. ON EXAMINATION, SHE IS NOTED WITH GENERALIZED EDEMA. LUNGS ARE CLEAR TO AUSCULTATION. VITALS THIS AM ARE 97.5-79- 20-97%-136/77. ABNORMAL LABS INCLUDE THE FOLLOWING: CARBON DIOXIDE 32.9, AST 86 , ALK PHOS 147, ALBUMIN 3.1. CHEST XRAY REPORTS MILD HYPERINFLATION OF THE LUNGS WITHOUT ACUTE ABNORMALITY. EKG AND CARDIAC ENZYMES NEGATIVE. WE WILL GIVE LASIX 40MG X 2 DOSES, OBTAIN AN ECHO, AND START NORCO 10/325MG PO QID PRN. WE WILL RECHECH AM LABS AND CONTINUE TO MONITOR PATIENT. - Past Medical Family Social History Past Med/Fam/Surg Hx: No changes since H&P Allergies: Allergies codeine Allergy (Verified 05/12/17 17:14) - Review of Systems ROS: No change since H&P - Vital Signs and I&O's Vital Signs: Temperature 98.2 F Pulse Rate [Left Brachial] 86 Respiratory Rate 18 Blood Pressure [Left Arm] 106/71 Blood Pressure 90/53 O2 Sat by Pulse Oximetry 97 Intake and Output: Intake & Output 07/28/17 07/29/17 07/30/17 07/31/17 11:59 11:59 11:59 11:59 Intake Total 405 1370 Output Total 900 4500 Balance -495 -8240 - Physical Exam Oriented: Normal Eyes: Normal Ear: Normal Nose: Normal Throat: Normal Respiratory: Normal Cardiovascular: Edema : Normal Auscultation: Bowel Sounds: Normal Palpation: Normal Tenderness: Normal Skin: Normal Musculoskeletal: Normal Psychiatric: Normal Mood Description: Calm Affect: Normal Speech Pattern: Clear, Appropriate - Laboratory and Diagnostics Result Diagrams: 07/30/17 03:40 07/30/17 11:20 Labs: Laboratory WBC 7.0 X10^3/uL (3.6-10.0) 07/30/17 03:40 RBC 4.83 X10^6/uL (3.5-5.4) 07/30/17 03:40 Hgb 14.3 g/dL (12.0-16.0) 07/30/17 03:40 Hct 41.3 % (36.0-47.0) 07/30/17 03:40 MCV 85.5 fL (80.0-100.0) 07/30/17 03:40 MCH 29.6 pg (27.0-34.0) 07/30/17 03:40 MCHC 34.7 g/dL (33.0-35.0) 07/30/17 03:40 RDW 15.1 % (11.6-16.5) 07/30/17 03:40 Plt Count 247 X10^3/uL (150.0-450.0) 07/30/17 03:40 MPV 9.2 fL (7.4-11.0) 07/30/17 03:40 Neut % 56.2 % (42.0-75.0) 07/30/17 03:40 Lymph % 25.0 % (21.0-51.0) 07/30/17 03:40 [place] % 13.0 % (0.0-13.0) 07/30/17 03:40 Eos % 4.9 % (0.9-2.9) H 07/30/17 03:40 Baso % 0.9 % (0.2-1.0) 07/30/17 03:40 Neut # 4.0 x10^3/uL (2.2-4.8) 07/30/17 03:40 Lymph # 1.8 X10^3/uL (1.3-2.9) 07/30/17 03:40 [place] # 0.9 x10^3/uL (0.3-0.8) H 07/30/17 03:40 Eos # 0.3 x10^3/uL (0.0-0.2) H 07/30/17 03:40 Baso # 0.1 X10^3/uL (0.0-0.1) 07/30/17 03:40 Absolute Nucleated RBC 0.0 /100WBC 07/30/17 03:40 Sodium 140 mmol/L (136-145) 07/30/17 03:40 Corrected Sodium TNP 07/30/17 03:40 Potassium 3.0 mmol/L (3.5-5.1) L* 07/30/17 11:20 Chloride 98 mmol/L (98-107) 07/30/17 03:40 Carbon Dioxide 30.8 mmol/L (21-32) 07/30/17 03:40 BUN 9 mg/dL (7-18) 07/30/17 03:40 Creatinine 0.73 mg/dL (0.55-1.02) 07/30/17 03:40 Est GFR (MDRD) Af Amer > 60 (>60) 07/30/17 03:40 Est GFR (MDRD) Non-Af > 60 (>60) 07/30/17 03:40 Glucose 89 mg/dL (65-99) 07/30/17 03:40 Calcium 9.1 mg/dL (8.5-10.1) 07/30/17 03:40 Corrected Calcium TNP 07/30/17 03:40 Magnesium 1.8 mg/dL (1.7-2.9) 07/30/17 03:40 Total Bilirubin 0.60 mg/dL (0.2-1.0) 07/30/17 03:40 AST 89 Units/L (15-37) H 07/30/17 03:40 ALT 79 Units/L (12-78) H 07/30/17 03:40 Alkaline Phosphatase 162 Units/L (46-116) H 07/30/17 03:40 Creatine Kinase 96 Units/L (26-192) 07/29/17 01:02 CK-MB (CK-2) < 1.0 ng/mL (0-4.0) 07/29/17 01:02 CK/CKMB % Calc 1.0 % (<4) 07/29/17 01:02 Troponin I < 0.02 ng/mL (0-1.5) 07/29/17 01:02 Total Protein 7.8 g/dL (6.4-8.2) 07/30/17 03:40 Albumin 3.5 g/dL (3.4-5.0) 07/30/17 03:40 Globulin 4.3 g/dL (2.5-4.5) 07/30/17 03:40 Albumin/Globulin Ratio 0.8 Ratio (1.1-2.1) L 07/30/17 03:40 - Plan (1) Shortness of breath Status: Acute Plan: SUPPLEMENTAL OXYGEN, LASIX 40MG IV X 2 DOSES, CONTINUE TO MONITOR (2) Pitting edema Status: Acute Plan: LASIX 40MG IV BID X 2 DOSES, CONTINUE TO MONITOR
--- NOTE | 2017-07-30 16:37 | PCM.PROG ---
Progress Note - Progress Note for Day of Date: 07/30/17 - Subjective Subjective: IS ALERT AND ORIENTED, LYING IN BED ON MORNING ROUNDS. SHE IS NOTED WITH COMPLAINTS OF ACHING ALL OVER. ON EXAMINATION, GENERALIZED EDEMA HAS SIGNIFICANTLY DECREASED. LUNGS ARE CLEAR TO AUSCULTATION. VITALS THIS AM ARE 97.6-82-22-95%-103/73. ABNORMAL LABS INCLUDE THE FOLLOWING: POTASSIUM 2.9 , AST 89, ALT 79, ALK PHOS 162. WE WILL OBTAIN AN ECHO TODAY, CHECK MAGNESIUM LEVEL, AND INCREASE LYRICA TO THREE TIME A DAY. WE WILL RECHECH AM LABS AND CONTINUE TO MONITOR PATIENT. - Past Medical Family Social History Past Med/Fam/Surg Hx: No changes since H&P Allergies: Allergies codeine Allergy (Verified 05/12/17 17:14) - Review of Systems ROS: No change since H&P - Vital Signs and I&O's Vital Signs: Temperature 97.5 F Pulse Rate [Left Brachial] 81 Respiratory Rate 18 Blood Pressure [Left Arm] 125/66 Blood Pressure 90/53 O2 Sat by Pulse Oximetry 98 Intake and Output: Intake & Output 07/28/17 07/29/17 07/30/17 07/31/17 11:59 11:59 11:59 11:59 Intake Total 405 1370 420 Output Total 900 4500 800 Balance -796 -4120 -203 - Physical Exam Oriented: Normal Eyes: Normal Ear: Normal Nose: Normal Throat: Normal Respiratory: Normal Cardiovascular: Edema : Normal Auscultation: Bowel Sounds: Normal Palpation: Normal Tenderness: Normal Skin: Normal Musculoskeletal: Normal Psychiatric: Normal Mood Description: Calm Affect: Normal Speech Pattern: Clear, Appropriate - Laboratory and Diagnostics Result Diagrams: 07/30/17 03:40 07/30/17 14:01 Labs: Laboratory WBC 7.0 X10^3/uL (3.6-10.0) 07/30/17 03:40 RBC 4.83 X10^6/uL (3.5-5.4) 07/30/17 03:40 Hgb 14.3 g/dL (12.0-16.0) 07/30/17 03:40 Hct 41.3 % (36.0-47.0) 07/30/17 03:40 MCV 85.5 fL (80.0-100.0) 07/30/17 03:40 MCH 29.6 pg (27.0-34.0) 07/30/17 03:40 MCHC 34.7 g/dL (33.0-35.0) 07/30/17 03:40 RDW 15.1 % (11.6-16.5) 07/30/17 03:40 Plt Count 247 X10^3/uL (150.0-450.0) 07/30/17 03:40 MPV 9.2 fL (7.4-11.0) 07/30/17 03:40 Neut % 56.2 % (42.0-75.0) 07/30/17 03:40 Lymph % 25.0 % (21.0-51.0) 07/30/17 03:40 [place] % 13.0 % (0.0-13.0) 07/30/17 03:40 Eos % 4.9 % (0.9-2.9) H 07/30/17 03:40 Baso % 0.9 % (0.2-1.0) 07/30/17 03:40 Neut # 4.0 x10^3/uL (2.2-4.8) 07/30/17 03:40 Lymph # 1.8 X10^3/uL (1.3-2.9) 07/30/17 03:40 [place] # 0.9 x10^3/uL (0.3-0.8) H 07/30/17 03:40 Eos # 0.3 x10^3/uL (0.0-0.2) H 07/30/17 03:40 Baso # 0.1 X10^3/uL (0.0-0.1) 07/30/17 03:40 Absolute Nucleated RBC 0.0 /100WBC 07/30/17 03:40 Sodium 140 mmol/L (136-145) 07/30/17 03:40 Corrected Sodium TNP 07/30/17 03:40 Potassium 3.7 mmol/L (3.5-5.1) 07/30/17 14:01 Chloride 98 mmol/L (98-107) 07/30/17 03:40 Carbon Dioxide 30.8 mmol/L (21-32) 07/30/17 03:40 BUN 9 mg/dL (7-18) 07/30/17 03:40 Creatinine 0.73 mg/dL (0.55-1.02) 07/30/17 03:40 Est GFR (MDRD) Af Amer > 60 (>60) 07/30/17 03:40 Est GFR (MDRD) Non-Af > 60 (>60) 07/30/17 03:40 Glucose 89 mg/dL (65-99) 07/30/17 03:40 Calcium 9.1 mg/dL (8.5-10.1) 07/30/17 03:40 Corrected Calcium TNP 07/30/17 03:40 Magnesium 1.8 mg/dL (1.7-2.9) 07/30/17 03:40 Total Bilirubin 0.60 mg/dL (0.2-1.0) 07/30/17 03:40 AST 89 Units/L (15-37) H 07/30/17 03:40 ALT 79 Units/L (12-78) H 07/30/17 03:40 Alkaline Phosphatase 162 Units/L (46-116) H 07/30/17 03:40 Creatine Kinase 96 Units/L (26-192) 07/29/17 01:02 CK-MB (CK-2) < 1.0 ng/mL (0-4.0) 07/29/17 01:02 CK/CKMB % Calc 1.0 % (<4) 07/29/17 01:02 Troponin I < 0.02 ng/mL (0-1.5) 07/29/17 01:02 Total Protein 7.8 g/dL (6.4-8.2) 07/30/17 03:40 Albumin 3.5 g/dL (3.4-5.0) 07/30/17 03:40 Globulin 4.3 g/dL (2.5-4.5) 07/30/17 03:40 Albumin/Globulin Ratio 0.8 Ratio (1.1-2.1) L 07/30/17 03:40 - Plan (1) Shortness of breath Status: Acute Plan: SUPPLEMENTAL OXYGEN, LASIX 40MG IV X 2 DOSES, CONTINUE TO MONITOR (2) Pitting edema Status: Acute Plan: LASIX 40MG IV BID X 2 DOSES, CONTINUE TO MONITOR
[2017-07-30] MEDS: CRESTOR TAB 10 MG PO SCH (21:24)
[2017-07-30] MEDS: AMBIEN PO PRN (21:25)
[2017-07-30] MEDS: XANAX PO SCH (21:26)
[2017-07-31 05:28] LABS: ALANINE AMINOTRANSFERASE 78 Units/L (12-78); ALBUMIN 3.3 g/dL (3.4-5.0); ALKALINE PHOSPHATASE 166 Units/L (46-116); ASPARTATE AMINO TRANSFERASE 91 Units/L (15-37); BLOOD UREA NITROGEN 19 mg/dL (7-18); CALCIUM 9.2 mg/dL (8.5-10.1); CARBON DIOXIDE 29.9 mmol/L (21-32); CHLORIDE 101 mmol/L (98-107); COR CA(FOR HYPOALB) 9.8 mg/dL (8.5-10.1); CREATININE 0.77 mg/dL (0.55-1.02); SODIUM 139 mmol/L (136-145); TOTAL PROTEIN 7.3 g/dL (6.4-8.2); eGFR BLACK RACES > 60 (>60); eGFR NON BLACK RACES > 60 (>60)
[2017-07-31] MEDS: NORCO 10/325 TAB PO PRN ×3 (05:53→21:24)
[2017-07-31] MEDS: LYRICA CAP 75 MG PO SCH ×3 (05:53→21:25)
[2017-07-31] MEDS: PHENERGAN INJ 25 MG IV PRN ×3 (05:53→21:27)
[2017-07-31 05:54] LABS: BASOPHILS % (AUTO) 0.5 % (0.2-1.0); EOSINOPHILS # (AUTO) 0.4 x10^3/uL (0.0-0.2); EOSINOPHILS % (AUTO) 6.3 % (0.9-2.9); HEMATOCRIT 41.7 % (36.0-47.0); HEMOGLOBIN 14.2 g/dL (12.0-16.0); LYMPHOCYTES # (AUTO) 2.5 X10^3/uL (1.3-2.9); MEAN CORPUSCULAR HEMOGLOBIN 29.4 pg (27.0-34.0); MEAN CORPUSCULAR VOLUME 86.5 fL (80.0-100.0); MEAN PLATELET VOLUME 8.9 fL (7.4-11.0); MONOCYTES # (AUTO) 0.7 x10^3/uL (0.3-0.8); NEUTROPHILS # (AUTO) 3.4 x10^3/uL (2.2-4.8); NEUTROPHILS % (AUTO) 48.2 % (42.0-75.0); PLATELET COUNT 244 X10^3/uL (150.0-450.0); RED BLOOD COUNT 4.82 X10^6/uL (3.5-5.4); RED CELL DISTRIBUTION WIDTH 14.8 % (11.6-16.5)
[2017-07-31] MEDS: BRILINTA PO SCH ×2 (09:54→21:25)
[2017-07-31] MEDS: ASPIRIN 81 MG CHEWTAB PO SCH (09:54)
[2017-07-31] MEDS: CLARITIN PO SCH (09:54)
[2017-07-31] MEDS: SYNTHROID 25 mcg TAB PO SCH (09:55)
[2017-07-31] MEDS: LOPRESSOR TAB 25 MG PO SCH ×2 (09:55→21:26)
[2017-07-31] MEDS: PROTONIX TAB 40 MG PO SCH (09:55)
[2017-07-31] MEDS: MAG-OX TAB PO SCH ×2 (09:55→21:26)
[2017-07-31] MEDS: CYMBALTA PO SCH (09:55)
[2017-07-31] MEDS: LASIX IVP SCH ×2 (10:46→21:24)
[2017-07-31 11:46] LABS: BILIRUBIN,URINE NEGATIVE (NEGATIVE); BLOOD/HEMOGLOBIN,URINE 1+ (NEGATIVE); GLUCOSE, URINE NEGATIVE (NEGATIVE); KETONES,URINE NEGATIVE (NEGATIVE); LEUKOCYTE ESTERASE ,URINE NEGATIVE (NEGATIVE); NITRITES,URINE NEGATIVE (NEGATIVE); PH,URINE 6.5 (5.0 - 8.0); PROTEIN,URINE 2+ (NEGATIVE); UROBILINOGEN,URINE NORMAL (NORMAL)
[2017-07-31 12:11] LABS: AMORPHOUS SEDIMENT,UR 1+ /HPF (NEGATIVE); APPEARANCE,URINE CLEAR (CLEAR); BACTERIA,URINE TRACE /HPF (NEGATIVE); COLOR,URINE YELLOW (YELLOW); RBC,URINE 0 - 2 /HPF (NEGATIVE); SQUAMOUS EPITHELIAL CELL,UR MODERATE /HPF (NEGATIVE)
[2017-07-31 12:12] LABS: HYALINE CASTS, URINE RARE /LPF (NEGATIVE)
[2017-07-31] MEDS: CRESTOR TAB 10 MG PO SCH (21:24)
[2017-07-31] MEDS: XANAX PO SCH (21:25)
[2017-07-31] MEDS: AMBIEN PO PRN (21:26)
--- NOTE | 2017-07-31 22:15 | PCM.PROG ---
Progress Note - Progress Note for Day of Date: 07/31/17 - Subjective Subjective: WAS ADMITTED FOR SHORTNESS OF BREATH AND PITTING EDEMA. SHE IS ALERT AND ORIENTED, LYING IN BED ON MORNING ROUNDS. SHE IS NOTED WITH COMPLAINTS OF SWELLING AND UNABLE TO VOID SINCE YESTERDAY EVENING. ON EXAMINATION, GENERALIZED EDEMA HAS INCREASED SINCE YESTERDAY. BLADDER DISTENDED. BOWEL SOUNDS NORMAL IN ALL QUADRANTS. LUNGS ARE CLEAR TO AUSCULTATION. VITALS THIS AM ARE 97.3-78-18-94%-107/76. ABNORMAL LABS INCLUDE THE FOLLOWING: BUN 19, GLUCOSE 107, AST 91, ALK PHOS 166, ALBUMIN 3.3. A URINALYSIS WAS OBTAINED TODAY AND IS NEGATIVE FOR UTI. AN ECHO WAS OBTAINED AND REPORTED EJECTION FRACTION 70%. PATIENT REPORTS DECREASE IN BODY ACHES SINCE WE INCREASED THE LYRICA TO THREE TIMES A DAY. WE WILL GIVE PATIENT LASIX 40MG IV Q12H X 2 DOSES TODAY. WE WILL RECHECH AM LABS AND FOLLOW UP WITH PATIENT IN AM. - Past Medical Family Social History Past Med/Fam/Surg Hx: No changes since H&P Allergies: Allergies codeine Allergy (Verified 05/12/17 17:14) - Review of Systems ROS: No change since H&P - Vital Signs and I&O's Vital Signs: Temperature 97.9 F Pulse Rate [Left Brachial] 84 Respiratory Rate 20 Blood Pressure [Right Arm] 135/71 Blood Pressure [Left Arm] 136/69 Blood Pressure 90/53 O2 Sat by Pulse Oximetry 99 Intake and Output: Intake & Output 07/29/17 07/30/17 07/31/17 08/01/17 11:59 11:59 11:59 11:59 Intake Total 405 1370 1720 1000 Output Total 900 4500 1200 1500 Balance -495 -3130 520 -500 - Physical Exam Oriented: Normal Eyes: Normal Ear: Normal Nose: Normal Throat: Normal Respiratory: Normal Cardiovascular: Edema : Normal Auscultation: Bowel Sounds: Normal Palpation: Normal Tenderness: Normal Skin: Normal Musculoskeletal: Normal Psychiatric: Normal Mood Description: Calm Affect: Normal Speech Pattern: Clear, Appropriate - Laboratory and Diagnostics Result Diagrams: 07/31/17 03:48 07/31/17 03:48 Labs: Laboratory WBC 7.0 X10^3/uL (3.6-10.0) 07/31/17 03:48 RBC 4.82 X10^6/uL (3.5-5.4) 07/31/17 03:48 Hgb 14.2 g/dL (12.0-16.0) 07/31/17 03:48 Hct 41.7 % (36.0-47.0) 07/31/17 03:48 MCV 86.5 fL (80.0-100.0) 07/31/17 03:48 MCH 29.4 pg (27.0-34.0) 07/31/17 03:48 MCHC 34.0 g/dL (33.0-35.0) 07/31/17 03:48 RDW 14.8 % (11.6-16.5) 07/31/17 03:48 Plt Count 244 X10^3/uL (150.0-450.0) 07/31/17 03:48 MPV 8.9 fL (7.4-11.0) 07/31/17 03:48 Neut % 48.2 % (42.0-75.0) 07/31/17 03:48 Lymph % 35.0 % (21.0-51.0) 07/31/17 03:48 [place] % 10.0 % (0.0-13.0) 07/31/17 03:48 Eos % 6.3 % (0.9-2.9) H 07/31/17 03:48 Baso % 0.5 % (0.2-1.0) 07/31/17 03:48 Neut # 3.4 x10^3/uL (2.2-4.8) 07/31/17 03:48 Lymph # 2.5 X10^3/uL (1.3-2.9) 07/31/17 03:48 [place] # 0.7 x10^3/uL (0.3-0.8) 07/31/17 03:48 Eos # 0.4 x10^3/uL (0.0-0.2) H 07/31/17 03:48 Baso # 0.0 X10^3/uL (0.0-0.1) 07/31/17 03:48 Absolute Nucleated RBC 0.1 /100WBC 07/31/17 03:48 Sodium 139 mmol/L (136-145) 07/31/17 03:48 Corrected Sodium TNP 07/31/17 03:48 Potassium 3.6 mmol/L (3.5-5.1) 07/31/17 03:48 Chloride 101 mmol/L (98-107) 07/31/17 03:48 Carbon Dioxide 29.9 mmol/L (21-32) 07/31/17 03:48 BUN 19 mg/dL (7-18) H 07/31/17 03:48 Creatinine 0.77 mg/dL (0.55-1.02) 07/31/17 03:48 Est GFR (MDRD) Af Amer > 60 (>60) 07/31/17 03:48 Est GFR (MDRD) Non-Af > 60 (>60) 07/31/17 03:48 Glucose 107 mg/dL (65-99) H 07/31/17 03:48 Calcium 9.2 mg/dL (8.5-10.1) 07/31/17 03:48 Corrected Calcium 9.8 mg/dL (8.5-10.1) 07/31/17 03:48 Magnesium 1.8 mg/dL (1.7-2.9) 07/30/17 03:40 Total Bilirubin 0.50 mg/dL (0.2-1.0) 07/31/17 03:48 AST 91 Units/L (15-37) H 07/31/17 03:48 ALT 78 Units/L (12-78) 07/31/17 03:48 Alkaline Phosphatase 166 Units/L (46-116) H 07/31/17 03:48 Creatine Kinase 96 Units/L (26-192) 07/29/17 01:02 CK-MB (CK-2) < 1.0 ng/mL (0-4.0) 07/29/17 01:02 CK/CKMB % Calc 1.0 % (<4) 07/29/17 01:02 Troponin I < 0.02 ng/mL (0-1.5) 07/29/17 01:02 Total Protein 7.3 g/dL (6.4-8.2) 07/31/17 03:48 Albumin 3.3 g/dL (3.4-5.0) L 07/31/17 03:48 Globulin 4.0 g/dL (2.5-4.5) 07/31/17 03:48 Albumin/Globulin Ratio 0.8 Ratio (1.1-2.1) L 07/31/17 03:48 Specimen Type Clean catch urine 07/31/17 11:25 Urine Color Yellow (YELLOW) 07/31/17 11:25 Urine Appearance Clear (CLEAR) 07/31/17 11:25 Urine pH 6.5 (5.0 - 8.0) 07/31/17 11:25 Ur Specific [place] 1.010 (1.000-1.030) 07/31/17 11:25 Urine Protein 2+ (NEGATIVE) 07/31/17 11:25 Urine Glucose (UA) Negative (NEGATIVE) 07/31/17 11:25 Urine Ketones Negative (NEGATIVE) 07/31/17 11:25 Urine Occult Blood 1+ (NEGATIVE) 07/31/17 11:25 Urine Nitrite Negative (NEGATIVE) 07/31/17 11:25 Urine Bilirubin Negative (NEGATIVE) 07/31/17 11:25 Urine Urobilinogen Normal (NORMAL) 07/31/17 11:25 Ur Leukocyte Esterase Negative (NEGATIVE) 07/31/17 11:25 Urine RBC 0 - 2 /HPF (NEGATIVE) 07/31/17 11:25 Urine WBC 0 - 4 /HPF (NEGATIVE) 07/31/17 11:25 Ur Squamous Epith Cells Moderate /HPF (NEGATIVE) 07/31/17 11:25 Amorphous Sediment 1+ /HPF (NEGATIVE) 07/31/17 11:25 Urine Bacteria Trace /HPF (NEGATIVE) 07/31/17 11:25 Hyaline Casts Rare /LPF (NEGATIVE) 07/31/17 11:25 Ur Culture Indicated? No/not indicated 07/31/17 11:25 - Plan (1) Shortness of breath Status: Acute Plan: SUPPLEMENTAL OXYGEN, LASIX 40MG IV X 2 DOSES, CONTINUE TO MONITOR (2) Pitting edema Status: Acute Plan: LASIX 40MG IV BID X 2 DOSES, CONTINUE TO MONITOR (3) Generalized pain Status: Acute Plan: LYRICA 75MG TID, NORCO 10/325 QID PRN, CONTINUE TO MONITOR
[2017-08-01] MEDS: NORCO 10/325 TAB PO PRN ×3 (04:33→19:27)
[2017-08-01] MEDS: PHENERGAN INJ 25 MG IV PRN ×3 (04:34→21:08)
[2017-08-01 05:34] LABS: BASOPHILS # (AUTO) 0.1 X10^3/uL (0.0-0.1); BASOPHILS % (AUTO) 0.7 % (0.2-1.0); EOSINOPHILS # (AUTO) 0.5 x10^3/uL (0.0-0.2); HEMATOCRIT 43.7 % (36.0-47.0); HEMOGLOBIN 14.7 g/dL (12.0-16.0); LYMPHOCYTES # (AUTO) 2.5 X10^3/uL (1.3-2.9); LYMPHOCYTES % (AUTO) 30.7 % (21.0-51.0); MEAN CORPUSCULAR HEMOGLOBIN 29.1 pg (27.0-34.0); MEAN CORPUSCULAR HGB CONC 33.7 g/dL (33.0-35.0); MEAN CORPUSCULAR VOLUME 86.5 fL (80.0-100.0); MEAN PLATELET VOLUME 8.9 fL (7.4-11.0); MONOCYTES # (AUTO) 0.9 x10^3/uL (0.3-0.8); MONOCYTES % (AUTO) 10.9 % (0.0-13.0); NEUTROPHILS # (AUTO) 4.2 x10^3/uL (2.2-4.8); NEUTROPHILS % (AUTO) 51.7 % (42.0-75.0); PLATELET COUNT 266 X10^3/uL (150.0-450.0); RED BLOOD COUNT 5.06 X10^6/uL (3.5-5.4); WHITE BLOOD COUNT 8.1 X10^3/uL (3.6-10.0)
[2017-08-01 05:42] LABS: ALANINE AMINOTRANSFERASE 86 Units/L (12-78); ALBUMIN 3.6 g/dL (3.4-5.0); ALKALINE PHOSPHATASE 175 Units/L (46-116); ASPARTATE AMINO TRANSFERASE 85 Units/L (15-37); BLOOD UREA NITROGEN 15 mg/dL (7-18); CALCIUM 9.4 mg/dL (8.5-10.1); CHLORIDE 98 mmol/L (98-107); CREATININE 0.85 mg/dL (0.55-1.02); SODIUM 139 mmol/L (136-145); eGFR BLACK RACES > 60 (>60); eGFR NON BLACK RACES > 60 (>60)
[2017-08-01] MEDS: LYRICA CAP 75 MG PO SCH ×3 (06:01→21:08)
--- NOTE | 2017-08-01 07:29 | RAD ---
HISTORY: Shortness of breath Study: AP chest. Comparison: 07/29/2017 Findings: The lungs are clear. No consolidation. There are no pleural effusions. Cardiac silhouette is mildly enlarged. Status post median sternotomy and CABG. IMPRESSION: 1. Mild enlargement of the cardiac silhouette. Lungs appear clear.. Reported By:
[2017-08-01] MEDS: PROTONIX TAB 40 MG PO SCH (09:21)
[2017-08-01] MEDS: CLARITIN PO SCH (09:21)
[2017-08-01] MEDS: MAG-OX TAB PO SCH ×2 (09:21→21:08)
[2017-08-01] MEDS: SYNTHROID 25 mcg TAB PO SCH (09:21)
[2017-08-01] MEDS: LOPRESSOR TAB 25 MG PO SCH ×3 (09:21→21:14)
[2017-08-01] MEDS: ASPIRIN 81 MG CHEWTAB PO SCH (09:21)
[2017-08-01] MEDS: BRILINTA PO SCH ×2 (09:21→21:07)
[2017-08-01] MEDS: CYMBALTA PO SCH (09:25)
[2017-08-01] MEDS: CRESTOR TAB 10 MG PO SCH (21:06)
[2017-08-01] MEDS: XANAX PO SCH (21:07)
[2017-08-01] MEDS: AMBIEN PO PRN (21:08)
[2017-08-02] MEDS: NORCO 10/325 TAB PO PRN ×2 (02:51→13:15)
[2017-08-02 05:12] LABS: BASOPHILS # (AUTO) 0.1 X10^3/uL (0.0-0.1); BASOPHILS % (AUTO) 0.9 % (0.2-1.0); EOSINOPHILS # (AUTO) 0.4 x10^3/uL (0.0-0.2); EOSINOPHILS % (AUTO) 6.3 % (0.9-2.9); HEMATOCRIT 37.5 % (36.0-47.0); HEMOGLOBIN 12.8 g/dL (12.0-16.0); LYMPHOCYTES # (AUTO) 2.2 X10^3/uL (1.3-2.9); LYMPHOCYTES % (AUTO) 32.9 % (21.0-51.0); MEAN CORPUSCULAR HEMOGLOBIN 29.4 pg (27.0-34.0); MEAN CORPUSCULAR HGB CONC 34.2 g/dL (33.0-35.0); MEAN CORPUSCULAR VOLUME 85.8 fL (80.0-100.0); MEAN PLATELET VOLUME 8.8 fL (7.4-11.0); MONOCYTES # (AUTO) 0.5 x10^3/uL (0.3-0.8); MONOCYTES % (AUTO) 7.2 % (0.0-13.0); NEUTROPHILS # (AUTO) 3.6 x10^3/uL (2.2-4.8); NEUTROPHILS % (AUTO) 52.7 % (42.0-75.0); PLATELET COUNT 201 X10^3/uL (150.0-450.0); RED BLOOD COUNT 4.37 X10^6/uL (3.5-5.4); RED CELL DISTRIBUTION WIDTH 14.6 % (11.6-16.5); WHITE BLOOD COUNT 6.8 X10^3/uL (3.6-10.0)
[2017-08-02 05:13] LABS: ALANINE AMINOTRANSFERASE 54 Units/L (12-78); ALBUMIN 2.9 g/dL (3.4-5.0); ALKALINE PHOSPHATASE 150 Units/L (46-116); ASPARTATE AMINO TRANSFERASE 40 Units/L (15-37); BLOOD UREA NITROGEN 13 mg/dL (7-18); CARBON DIOXIDE 33.1 mmol/L (21-32); CHLORIDE 102 mmol/L (98-107); COR CA(FOR HYPOALB) 9.9 mg/dL (8.5-10.1); COR NA(FOR HYPERGLY) 141 mmol/L (136-145); SODIUM 140 mmol/L (136-145); TOTAL PROTEIN 6.5 g/dL (6.4-8.2); eGFR BLACK RACES > 60 (>60); eGFR NON BLACK RACES > 60 (>60)
[2017-08-02] MEDS: LYRICA CAP 75 MG PO SCH ×2 (05:44→13:15)
[2017-08-02] MEDS: ASPIRIN 81 MG CHEWTAB PO SCH (09:27)
[2017-08-02] MEDS: BRILINTA PO SCH (09:27)
[2017-08-02] MEDS: PROTONIX TAB 40 MG PO SCH (09:27)
[2017-08-02] MEDS: LOPRESSOR TAB 25 MG PO SCH (09:27)
[2017-08-02] MEDS: SYNTHROID 25 mcg TAB PO SCH (09:27)
[2017-08-02] MEDS: CLARITIN PO SCH (09:27)
[2017-08-02] MEDS: MAG-OX TAB PO SCH (09:27)
[2017-08-02] MEDS: CYMBALTA PO SCH (09:32)
[2017-08-02 12:10] LABS: RHEUMATOID FACTOR NEGATIVE (NEGATIVE)
[2017-08-02 15:05] VITALS: BP 107/58
--- NOTE | 2017-08-02 16:04 | RAD ---
Right knee series, three views Indication: Knee pain. Comparison: None available. Impression: No acute fracture or malalignment is seen within the right knee. There is mild tricompartmental degen erative arthrosis which is most apparent within the medial femorotibial compartment. There is no appr eciable joint effusion. There is mild osteopenia. Reported By:
--- NOTE | 2017-08-02 16:05 | RAD ---
Left knee series, three views Indication: Knee pain without injury. Comparison: None available. Impression: No acute fracture or malalignment is seen within the left knee. There is mild tricompartmental degene rative arthrosis, most apparent within the medial femorotibial compartment. Multiple surgical clips a re seen within the posterior medial soft tissues of the upper foreleg. There is no appreciable joint effusion. Reported By:
== END 2017-08-02 16:00 | disposition home or self-care (01) | DRG 204 ==
LOC: MED/SURG 15:56
PROVIDERS: ADMIT Internal Medicine; ATTEND Internal Medicine
DX: R06.02 Shortness of breath (principal); R60.0 Localized edema; I48.2 Chronic atrial fibrillation; Z95.5 Presence of coronary angioplasty implant and graft; E03.8 Other specified hypothyroidism; F41.1 Generalized anxiety disorder; I25.2 Old myocardial infarction; R53.1 Weakness; I20.8 Other forms of angina pectoris; M25.511 Pain in right shoulder; R52 Pain, unspecified
CPT/HCPCS: 36415; 71010; 73564; 80053; 81001; 82550; 82553; 83735; 84132; 84484; 85025; 85652; 86140; 86430; 93005; 93306; 94760; A4216; A4222; J1940; J2405; J2550

== ENCOUNTER 2018-03-02 20:49 | Inpatient (IN) | payer OTHER ==
[2018-03-02 20:56] VITALS: BMI 38.9
[2018-03-02 22:06] LABS: BASOPHILS % (AUTO) 0.6 % (0.2-1.0); EOSINOPHILS # (AUTO) 0.2 x10^3/uL (0.0-0.2); EOSINOPHILS % (AUTO) 3.4 % (0.9-2.9); HEMATOCRIT 36.2 % (36.0-47.0); HEMOGLOBIN 12.4 g/dL (12.0-16.0); LYMPHOCYTES # (AUTO) 1.7 X10^3/uL (1.3-2.9); LYMPHOCYTES % (AUTO) 24.5 % (21.0-51.0); MEAN CORPUSCULAR HEMOGLOBIN 29.7 pg (27.0-34.0); MEAN CORPUSCULAR HGB CONC 34.3 g/dL (33.0-35.0); MEAN CORPUSCULAR VOLUME 86.7 fL (80.0-100.0); MEAN PLATELET VOLUME 9.2 fL (7.4-11.0); MONOCYTES # (AUTO) 0.5 x10^3/uL (0.3-0.8); NEUTROPHILS # (AUTO) 4.4 x10^3/uL (2.2-4.8); NEUTROPHILS % (AUTO) 63.5 % (42.0-75.0); PLATELET COUNT 217 X10^3/uL (150.0-450.0); RED BLOOD COUNT 4.17 X10^6/uL (3.5-5.4); RED CELL DISTRIBUTION WIDTH 15.1 % (11.6-16.5); WHITE BLOOD COUNT 6.9 X10^3/uL (3.6-10.0)
--- NOTE | 2018-03-02 22:18 | RAD ---
HISTORY: Chest pain Study: Single view chest Comparison: 08/01/2017 Findings: Single upright portable view demonstrates sternotomy changes. There is attenuation at the lung bases due to soft tissue artifact. No infiltrate, effusion or pneumothorax identified. The cardiac and medi astinal contours are within normal limits. The soft tissues are unremarkable. IMPRESSION: 1. No acute cardiopulmonary abnormality. Reported By:
--- NOTE | 2018-03-02 22:19 | DR.GENAD ---
HPI - PCP Primary Care Physician: LUCI - HPI Comment HPI Comment: NO FEVER. COUGHING. NO DYSURIA. - Complaint/Symptoms Chief Complaint Doctors Comments: CHEST PAIN WITH RESPIRATORY DISTRESS TIMES ONE WEEK. WORSE TIMES 2 DAYS. Chief Complaint:: PATIENT PATIENT ONLY VOIDING ONLY ABOUT 2-3 TIMES A DAY SINCE 5-6 DAYS. PATIENT BEEN HAVING CHEST PRESSURE ABOUT X2 DAYS, SOB ABOUT A WEEK MOSTLY WITH ACTIVITY BUT SOME AT REST. Self Treatment fo Chief Complaint: TOOK LASIX 20MG ONE DAY, NO RELIEF, NEXT DAY TOOK 40, MORE URINE OUTPUT BUT NOT BACK TO NORMAL - Nurses notes reviewed Nurses Notes Review: Yes - Source History Provided: Patient - Mode of Arrival Mode of Arrival: Ambulatory - Timing Onset of Chief Complaint: 02/23/18 Came on: Suddenly - Duration Duration: Constant Duration: Days - Severity Severity: Moderate PMH - PMH Past Medical History: Yes Past Medical History: Angina, CHF, Coronary Artery Disease, CT Past Surgical History: Yes Surgical History: Angioplasty/Stents, CABG/Valve Surgery, Cholecystectomy Past Surgical History Comment: OPEN HEART(TRIPLE BIPASS) JAN 02 AND THEN 2012( SINGLE), EYE SURG - Family History History of Family Medical Conditions: No Family Medical History: Diabetes Mellitus, Cancer, CT - Social History Does patient currently use any type of tobacco product: No Have you used tobacco products in the last 12 months: No Type of Tobacco Use: None Does any household member use tobacco: No Alcohol Use: None Do you use any recreational Drugs:: No Lives With: Mom Lives Where: Home - infectious screening In the last 2 months have you had wt loss of >10#?: NO Have you had fever, night sweats or hemotysis?: No Have you traveled outside the country in the last 6 months?: No Isolation: Standard ROS - Review of Systems Constitutional: Weakness, Fatigue. negative: Chills, Fever Eyes: No Symptoms Reported. negative: Eye Pain, Discharge ENTM: No Symptoms Reported. negative: Ear Pain, Nose Discharge, Nose Congestion , Throat Pain Respiratoy: Non-Productive Cough, Short of Breath, Wheezing. negative: Hemoptysis Cardiovascular: Chest Pain, Edema Gastrointestinal/Abdominal: Nausea. negative: Abdominal Pain Genitourinary: Other (USES ). negative: Dysuria, Hematuria Neurological: Headache, Weakness, Dizziness Musculoskeletal: No Symptoms Reported Integumentary: No Symptoms Reported Hematologic/Lymphatic: No Symptoms Reported Endocrine: No Symptoms Reported All Other Systems: Reviewed and Negative PE - Vital Signs Vitals: Temperature 97.1 F Pulse Rate 79 Respiratory Rate 20 Blood Pressure [Right Arm] 117/82 Blood Pressure [Left Arm] 107/58 Blood Pressure 106/62 O2 Sat by Pulse Oximetry 98 - General Limitations: No Limitations General Appearance: Alert - Head Head Exam: Normal Inspection - Eyes Eye exam: Normal Appearance - ENT ENT Exam: Normal External Ear Exam External Ear Exam: Normal External Inspection TM/Canal Exam: Bilateral Normal Nose Exam: Normal Nose Exam Mouth Exam: Normal Inspection Throat Exam: Normal Inspection - Neck Neck Exam: Trachea Midline - Chest Chest Inspection: Symmetric Chest Wall Rise - Respiratory Respiratory Exam: Normal Lung Sounds Bilat Respiratory Exam: Bilateral Rhonchi, Upper Rhonchi, Lower Rhonchi - Cardiovascular Cardiovascular Exam: Regular Rate, Normal Rhythm, Normal Heart Sounds - Abdominal Exam Abdominal Exam: Normal Bowel Sounds, Soft. negative: Tenderness - Extremities Extremities Exam: Normal Inspection - Back Back Exam: Normal Inspection - Neurologic Neurological Exam: Alert, Oriented X3 - Psychiatric Psychiatric Exam: Normal Affect, Normal Mood - Skin Skin Exam: Normal Color MDM - Additional Information Additional Information Obtained From: Family - Differential Diagnosis Differential Diagnosis: CHEST PAIN, RESP DISTRESS, PNEUMONIA, CT, Course - Treatment Treatment: SEE ORDERS. - Consultation Consultation Comments: DISCUSS PATIENT WITH DR. VERMA. HE WILL ADMIT PATIENT. - Education/Counseling Education/Counseling: Patient, Family, Education Educated On: Diagnosis, Needs for Follow Up ROR - Labs Reviewed Laboratory Results Reviewed?: Yes Result Diagrams: 03/02/18 21:55 03/02/18 21:55 Laboratory: WBC 6.9 X10^3/uL (3.6-10.0) 03/02/18 21:55 RBC 4.17 X10^6/uL (3.5-5.4) 03/02/18 21:55 Hgb 12.4 g/dL (12.0-16.0) 03/02/18 21:55 Hct 36.2 % (36.0-47.0) 03/02/18 21:55 MCV 86.7 fL (80.0-100.0) 03/02/18 21:55 MCH 29.7 pg (27.0-34.0) 03/02/18 21:55 MCHC 34.3 g/dL (33.0-35.0) 03/02/18 21:55 RDW 15.1 % (11.6-16.5) 03/02/18 21:55 Plt Count 217 X10^3/uL (150.0-450.0) 03/02/18 21:55 MPV 9.2 fL (7.4-11.0) 03/02/18 21:55 Neut % (Auto) 63.5 % (42.0-75.0) 03/02/18 21:55 Lymph % (Auto) 24.5 % (21.0-51.0) 03/02/18 21:55 [place] % (Auto) 8.0 % (0.0-13.0) 03/02/18 21:55 Eos % (Auto) 3.4 % (0.9-2.9) H 03/02/18 21:55 Baso % (Auto) 0.6 % (0.2-1.0) 03/02/18 21:55 Neut # (Auto) 4.4 x10^3/uL (2.2-4.8) 03/02/18 21:55 Lymph # (Auto) 1.7 X10^3/uL (1.3-2.9) 03/02/18 21:55 [place] # (Auto) 0.5 x10^3/uL (0.3-0.8) 03/02/18 21:55 Eos # (Auto) 0.2 x10^3/uL (0.0-0.2) 03/02/18 21:55 Baso # (Auto) 0.0 X10^3/uL (0.0-0.1) 03/02/18 21:55 Absolute Nucleated RBC 0.0 /100WBC 03/02/18 21:55 INR Target Range - 03/02/18 21:55 INR 0.95 (0.8-1.3) 03/02/18 21:55 APTT 31.5 SECONDS (22.9-36.5) 03/02/18 21:55 PTT Comment - 03/02/18 21:55 D-Dimer 608 ng/mL (0-400) H* 03/02/18 21:55 Sodium 140 mmol/L (136-145) 03/02/18 21:55 Corrected Sodium TNP 03/02/18 21:55 Potassium 4.0 mmol/L (3.5-5.1) 03/02/18 21:55 Chloride 105 mmol/L (98-107) 03/02/18 21:55 Carbon Dioxide 28.9 mmol/L (21-32) 03/02/18 21:55 BUN 14 mg/dL (7-18) 03/02/18 21:55 Creatinine 0.76 mg/dL (0.55-1.02) 03/02/18 21:55 Est GFR (MDRD) Af Amer > 60 (>60) 03/02/18 21:55 Est GFR (MDRD) Non-Af > 60 (>60) 03/02/18 21:55 Glucose 108 mg/dL (65-99) H 03/02/18 21:55 Calcium 8.3 mg/dL (8.5-10.1) L 03/02/18 21:55 Corrected Calcium 8.9 mg/dL (8.5-10.1) 03/02/18 21:55 Magnesium 1.6 mg/dL (1.7-2.9) L 03/02/18 21:55 Total Bilirubin 0.50 mg/dL (0.2-1.0) 03/02/18 21:55 AST 33 Units/L (15-37) 03/02/18 21:55 ALT 63 Units/L (12-78) 03/02/18 21:55 Alkaline Phosphatase 153 Units/L (46-116) H 03/02/18 21:55 Creatine Kinase 102 Units/L (26-192) 03/02/18 21:55 CK-MB (CK-2) 1.4 ng/mL (0-4.0) 03/02/18 21:55 CK/CKMB % Calc 1.4 % (<4) 03/02/18 21:55 Troponin I < 0.02 ng/mL (0-1.5) 03/02/18 21:55 B-Natriuretic Peptide 63.9 pg/mL (0-79) 03/02/18 21:55 Total Protein 7.2 g/dL (6.4-8.2) 03/02/18 21:55 Albumin 3.3 g/dL (3.4-5.0) L 03/02/18 21:55 Globulin 3.9 g/dL (2.5-4.5) 03/02/18 21:55 Albumin/Globulin Ratio 0.8 Ratio (1.1-2.1) L 03/02/18 21:55 - XRAY XRAY Interpreted by: Radiologist XRAY Findings: REPORT DISCUSS WITH PATIENT. - EKG Rhythm: NSR (EKG NOTED) - Diagnosis Discharge Problem: SOB (shortness of breath) Chest pain Qualifiers: Chest pain type: precordial pain Qualified Code(s): R07.2 - Precordial pain - Discharge Plan Disposition: ADMITTED INPATIENT Condition: Stable - Follow ups/Referrals - Instructions
[2018-03-02 22:23] LABS: B-TYPE NATRIURETIC PEPTIDE 63.9 pg/mL (0-79)
[2018-03-02] MEDS ORDERED: ZOFRAN INJ 4 MG VIAL IM ONE (22:26)
[2018-03-02] MEDS ORDERED: MORPHINE SULFATE INJ 4 MG IM ONE (22:26)
[2018-03-02] MEDS ORDERED: ZOFRAN INJ 4 MG VIAL ONE (22:29)
[2018-03-02] MEDS ORDERED: MORPHINE SULFATE INJ 4 MG ONE (22:29)
[2018-03-02 22:42] LABS: BLOOD UREA NITROGEN 14 mg/dL (7-18); CALCIUM 8.3 mg/dL (8.5-10.1); CARBON DIOXIDE 28.9 mmol/L (21-32); CHLORIDE 105 mmol/L (98-107); CREATININE 0.76 mg/dL (0.55-1.02); SODIUM 140 mmol/L (136-145); TROPONIN I < 0.02 ng/mL (0-1.5); eGFR BLACK RACES > 60 (>60); eGFR NON BLACK RACES > 60 (>60)
[2018-03-02 22:46] LABS: ALANINE AMINOTRANSFERASE 63 Units/L (12-78); ALBUMIN 3.3 g/dL (3.4-5.0); ALKALINE PHOSPHATASE 153 Units/L (46-116); ASPARTATE AMINO TRANSFERASE 33 Units/L (15-37); CKMB % 1.4 % (<4); COR CA(FOR HYPOALB) 8.9 mg/dL (8.5-10.1); CREATINE KINASE 102 Units/L (26-192); CREATINE KINASE MB 1.4 ng/mL (0-4.0); MAGNESIUM 1.6 mg/dL (1.7-2.9); TOTAL PROTEIN 7.2 g/dL (6.4-8.2)
[2018-03-02] MEDS ORDERED: NS 100 ML IV 100 ML IV ONE (23:24)
--- NOTE | 2018-03-03 | CT ---
CT angiogram chest with contrast Indication: Dyspnea for 2 days Technique: Helical images through the chest after IV contrast. Coronal and sagittal reformats provide d. MIP images provided Comparison: No recent prior CT chest Findings: Limited images through the upper abdomen shows no acute abnormality. Review of bone windows shows no destructive osseous lesion. Chest: Breast implants noted. There is sternotomy change with CABG clips. Coronary artery calcificati ons are minimal. The heart size is enlarged. The aortic arch is normal. Pulmonary artery bolus timing is adequate, without large central or segmental filling defect. No severe edema seen. There is no ef fusion, pneumothorax or consolidation. Few shotty mediastinal lymph nodes noted. Impression: 1. enlarged with a tortuous thoracic aorta Without overt edema. 2. No pulmonary embolus identified. 3. Tiny right lower lobe lung nodule seen on axial image 57 measures 3 mm. If the patient is a smoker , CT follow-up in 6-12 months is recommended. Reported By:
[2018-03-03] MEDS ORDERED: POTASSIUM CHL 40 MEQ/NS 0.45% 500 ML IV PRN (02:05)
[2018-03-03] MEDS ORDERED: K-RIDER 10 MEQ/NS 100 ML 10 MEQ/100 ML BAG IV PRN (02:05)
[2018-03-03] MEDS ORDERED: K-LYTE EFFERVESCENT PO PRN (02:05)
[2018-03-03] MEDS ORDERED: MAGNESIUM SULFATE 1 GM/100 mL PREMIX 1 GM/100 ML BAG IV PRN (02:05)
[2018-03-03] MEDS ORDERED: POTASSIUM CHLORIDE LIQ 20 MEQ UDC PO PRN (02:05)
[2018-03-03] MEDS ORDERED: POTASSIUM CHL 60 MEQ/NS 0.45% 500 ML IV PRN (02:05)
[2018-03-03] MEDS: COLACE CAP 100 MG PO SCH ×2 (05:15→21:29)
[2018-03-03] MEDS: MILK OF MAGNESIA PO SCH ×2 (05:15→21:30)
[2018-03-03 06:05] LABS: BASOPHILS % (AUTO) 0.7 % (0.2-1.0); EOSINOPHILS # (AUTO) 0.2 x10^3/uL (0.0-0.2); EOSINOPHILS % (AUTO) 3.9 % (0.9-2.9); HEMATOCRIT 34.6 % (36.0-47.0); HEMOGLOBIN 11.8 g/dL (12.0-16.0); LYMPHOCYTES # (AUTO) 2.1 X10^3/uL (1.3-2.9); LYMPHOCYTES % (AUTO) 33.8 % (21.0-51.0); MEAN CORPUSCULAR HEMOGLOBIN 29.7 pg (27.0-34.0); MEAN CORPUSCULAR HGB CONC 34.2 g/dL (33.0-35.0); MEAN CORPUSCULAR VOLUME 86.7 fL (80.0-100.0); MEAN PLATELET VOLUME 9.3 fL (7.4-11.0); MONOCYTES # (AUTO) 0.5 x10^3/uL (0.3-0.8); MONOCYTES % (AUTO) 8.8 % (0.0-13.0); NEUTROPHILS # (AUTO) 3.3 x10^3/uL (2.2-4.8); NEUTROPHILS % (AUTO) 52.8 % (42.0-75.0); PLATELET COUNT 225 X10^3/uL (150.0-450.0); RED BLOOD COUNT 3.98 X10^6/uL (3.5-5.4); RED CELL DISTRIBUTION WIDTH 14.9 % (11.6-16.5); WHITE BLOOD COUNT 6.2 X10^3/uL (3.6-10.0)
[2018-03-03 06:16] LABS: ALANINE AMINOTRANSFERASE 56 Units/L (12-78); ALKALINE PHOSPHATASE 151 Units/L (46-116); ASPARTATE AMINO TRANSFERASE 37 Units/L (15-37); BLOOD UREA NITROGEN 12 mg/dL (7-18); CALCIUM 8.2 mg/dL (8.5-10.1); CARBON DIOXIDE 28.3 mmol/L (21-32); CHLORIDE 104 mmol/L (98-107); CREATININE 0.69 mg/dL (0.55-1.02); SODIUM 139 mmol/L (136-145); TOTAL PROTEIN 6.6 g/dL (6.4-8.2); eGFR BLACK RACES > 60 (>60); eGFR NON BLACK RACES > 60 (>60)
[2018-03-03 06:22] LABS: CHOL/HDL RATIO 2.3 (0.0-5.0)
[2018-03-03 06:35] LABS: CKMB % 1.6 % (<4); CREATINE KINASE 96 Units/L (26-192); CREATINE KINASE MB 1.5 ng/mL (0-4.0); TROPONIN I < 0.02 ng/mL (0-1.5)
[2018-03-03] MEDS: HEMOCYTE-PLUS PO SCH (10:23)
[2018-03-03] MEDS: MORPHINE SULFATE INJ 4 MG IVP PRN ×2 (11:39→22:05)
[2018-03-03] MEDS: ZOFRAN INJ 4 MG VIAL IVP PRN ×2 (11:40→22:05)
[2018-03-03 12:24] LABS: CKMB % 1.8 % (<4); CREATINE KINASE 85 Units/L (26-192); CREATINE KINASE MB 1.5 ng/mL (0-4.0); TROPONIN I < 0.02 ng/mL (0-1.5)
[2018-03-03] MEDS: COLCRYS TAB 0.6 MG PO SCH (13:35)
[2018-03-03] MEDS: ASPIRIN 81 MG CHEWTAB PO SCH (13:35)
[2018-03-03] MEDS: REGLAN TAB 10 MG PO SCH ×3 (13:35→21:30)
[2018-03-03] MEDS: SYNTHROID 25 mcg TAB PO SCH (13:35)
[2018-03-03] MEDS: BRILINTA PO SCH ×2 (13:35→21:29)
[2018-03-03] MEDS: RANEXA PO SCH ×2 (13:36→21:30)
[2018-03-03] MEDS: XANAX PO SCH ×2 (13:36→21:29)
[2018-03-03] MEDS: CYMBALTA PO SCH ×2 (13:37→21:29)
[2018-03-03] MEDS: PROTONIX TAB 40 MG PO SCH (13:37)
[2018-03-03] MEDS: K-DUR TAB 20 MEQ PO SCH (13:37)
--- NOTE | 2018-03-03 13:39 | DR.H&P ---
H&P - History & Physical for Day of: H&P Date: 03/03/18 - Chief Complaint Chief Complaint: CHEST PAIN, SHORTNESS OF BREATH - Allergies Allergies/Adverse Reactions: Allergies Allergy/AdvReac Type Severity Reaction Status Date / Time codeine Allergy Verified 05/12/17 17:14 - History of Present Illness History of Present Illness: IS A 47 YEAR OLD PATIENT OF OURS WHO PRESENTED TO THE EMERGENCY ROOM LAST NIGHT WITH COMPLAINTS OF CHEST PAIN AND SHORTNESS OF BREATH THAT BEGAN ONE WEEK AGO. SHE REPORTS THAT SYMPTOMS HAVE INCREASINGLY WORSENED OVER THE PAST TWO DAYS. PATIENT REPORTS THAT SHORTNESS OF BREATH IS WORSE ON EXERTION. ASSOCIATED SYMPTOMS ARE DECREASED URINE OUTPUT, COUGH, EDEMA, HEADACHE, WEAKNESS, AND DIZZINESS. PATIENT REPORTS COMPLAINCE WITH DIURETICS, BUT NO IMPROVEMENT IN SYMPTOMS. ON EXAMINATION, SHE IS NOTED WITH SCATTERED WHEEZING AND BILATERAL LOWER EXTREMITY EDEMA. ON ARRIVAL, HER VITALS WERE 97.1-79-20-98%-106/62. LABS WERE OBTAINED. ABNORMAL LAB VALUES INCLUDE THE FOLLOWING: D-DIMER 608, GLUCOSE 108, CALCIUM 8.3, MAGNESIUM 1.6, ALKALINE PHOSPHATASE 153, ALBUMIN 3.3. CARDIAC ENZYMES WITHIN NORMAL LIMITS. EKG REVEALED SINUS RHYTHM WITH HR 62. CHEST XRAY OBTAINED AND REVEALED NO ACUTE CARDIOPULMONARY ABNORMALITY. A CHEST CTA WAS OBTAINED DUE TO ELEVATED D-DIMER. IT REVEALED ENLARGED WITH A TORTUOUS THORACIC AORTA WITHOUT OVERT EDEMA. NO PULMONARY EMBOLUS IDENTIFIED. TINY RIGHT LOWER LOBE LUNG NODULE. FOLLOW-UP RECOMMENDED IN 6-12 MONTHS. SHE WAS GIVEN MORPHINE 4MG IM X 1, ZOFRAN 4MG IM X 1 IN THE ER WITH NO IMPROVEMENT IN SYMTOMS. PATIENT WAS ADMITTED FOR FURTHER EVALUATION AND TREATMENT. WE PLAN TO OBTAIN SERIAL CARDIAC ENZYMES AND EKGS. WE WILL FOLLOW UP WITH AM LABS AND CONTINUE TO MONITOR PATIENT. - Past Medical History Past Medical History: Angina, CHF, Coronary Artery Disease, [place] - Past Surgical History Surgical History: Angioplasty/Stents, CABG/Valve Surgery, Cholecystectomy, Hysterectomy, Ortho Surgery, Other - Family History Family Medical History: Diabetes Mellitus, Cancer, [place] - Social History Does patient currently use any type of tobacco product: No Have you used tobacco products in the last 12 months: No Type of Tobacco Use: None Does any household member use tobacco: No Alcohol Use: None Drug Use: None - Medications Home Medications: Alprazolam [Alprazolam] 1 tab PO TID 03/03/18 [History Confirmed 03/03/18] Bupropion HCl [Bupropion HCl ER] 1 tab PO BID 03/03/18 [History Confirmed ] Colchicine [Colcrys Tab 0.6 mg] 1 tab PO DAILY 03/03/18 [History Confirmed 03/03] Hydrocodone-Acet 10/325 mg [NORCO 10 MG/325 MG *] 1 tab PO QID PRN 03/03/18 [ History Confirmed 03/03/18] Metoclopramide HCl 1 tablet PO QID 03/03/18 [History Confirmed 03/03/18] Potassium Chloride [Klor-Con M20] 2 tabs PO DAILY 03/03/18 [History Confirmed ] Pregabalin [LYRICA 100 MG *] 1 cap PO BID PRN 03/03/18 [History Confirmed ] Promethazine HCl 1 tab PO Q4-6H PRN 03/03/18 [History Confirmed 03/03/18] Quetiapine Fumarate [SEROQUEL 200 MG *] 1 tab PO DAILY 03/03/18 [History Confirmed 03/03/18] Ranolazine [RANEXA 500 MG *] 1 tab PO BID 03/03/18 [History Confirmed 03/03/18] Ropinirole HCl [Requip] 1 tab PO DAILY 03/03/18 [History Confirmed 03/03/18] Tramadol HCl [Tramadol HCl ER] 200 mg PO QAM 03/03/18 [History Confirmed ] - Physical Exam Vital Signs: Temperature 97.6 F Pulse Rate [Apical] 62 Pulse Rate 79 Respiratory Rate 65 Blood Pressure [Right Arm] 117/82 Blood Pressure [Left Arm] 101/59 Blood Pressure 106/62 O2 Sat by Pulse Oximetry 96
[2018-03-03] MEDS: BUPROPION HCL PO SCH ×2 (13:44→21:30)
[2018-03-03] MEDS: REQUIP PO SCH (21:27)
[2018-03-03] MEDS: CRESTOR TAB 10 MG PO SCH (21:27)
[2018-03-03] MEDS: MAG-OX TAB PO SCH (21:28)
[2018-03-04] MEDS: NORCO 10/325 TAB PO PRN ×2 (02:24→21:09)
[2018-03-04 05:13] LABS: BASOPHILS % (AUTO) 0.6 % (0.2-1.0); EOSINOPHILS # (AUTO) 0.2 x10^3/uL (0.0-0.2); EOSINOPHILS % (AUTO) 4.1 % (0.9-2.9); HEMATOCRIT 35.6 % (36.0-47.0); LYMPHOCYTES # (AUTO) 1.7 X10^3/uL (1.3-2.9); LYMPHOCYTES % (AUTO) 35.7 % (21.0-51.0); MEAN CORPUSCULAR HEMOGLOBIN 29.7 pg (27.0-34.0); MEAN CORPUSCULAR HGB CONC 33.8 g/dL (33.0-35.0); MEAN CORPUSCULAR VOLUME 87.9 fL (80.0-100.0); MEAN PLATELET VOLUME 9.5 fL (7.4-11.0); MONOCYTES # (AUTO) 0.5 x10^3/uL (0.3-0.8); MONOCYTES % (AUTO) 9.4 % (0.0-13.0); NEUTROPHILS # (AUTO) 2.4 x10^3/uL (2.2-4.8); NEUTROPHILS % (AUTO) 50.2 % (42.0-75.0); PLATELET COUNT 214 X10^3/uL (150.0-450.0); RED BLOOD COUNT 4.05 X10^6/uL (3.5-5.4); RED CELL DISTRIBUTION WIDTH 15.1 % (11.6-16.5); WHITE BLOOD COUNT 4.8 X10^3/uL (3.6-10.0)
[2018-03-04 05:34] LABS: ALANINE AMINOTRANSFERASE 51 Units/L (12-78); ALKALINE PHOSPHATASE 143 Units/L (46-116); ASPARTATE AMINO TRANSFERASE 30 Units/L (15-37); BLOOD UREA NITROGEN 10 mg/dL (7-18); CALCIUM 8.3 mg/dL (8.5-10.1); CARBON DIOXIDE 29.2 mmol/L (21-32); CHLORIDE 105 mmol/L (98-107); COR CA(FOR HYPOALB) 9.1 mg/dL (8.5-10.1); CREATININE 0.57 mg/dL (0.55-1.02); SODIUM 141 mmol/L (136-145); TOTAL PROTEIN 6.7 g/dL (6.4-8.2); eGFR BLACK RACES > 60 (>60); eGFR NON BLACK RACES > 60 (>60)
[2018-03-04] MEDS: XANAX PO SCH ×3 (05:43→21:09)
[2018-03-04] MEDS: MORPHINE SULFATE INJ 4 MG IVP PRN ×3 (06:01→19:38)
--- NOTE | 2018-03-04 07:27 | RAD ---
HISTORY: Chest pain Study: Chest AP portable Comparison: 03/02/2018 Findings: The patient is status post median sternotomy and CABG. The heart is enlarged. No congestive heart lalita lure is noted. No acute alveolar infiltrates or pleural effusions are identified. The bony thorax is unremarkable. IMPRESSION: Moderate cardiomegaly without congestive heart failure 2. Lungs clear Reported By:
[2018-03-04] MEDS: REQUIP PO SCH (09:44)
[2018-03-04] MEDS: PROTONIX TAB 40 MG PO SCH (09:44)
[2018-03-04] MEDS: REGLAN TAB 10 MG PO SCH ×4 (09:44→21:08)
[2018-03-04] MEDS: RANEXA PO SCH ×2 (09:45→21:08)
[2018-03-04] MEDS: K-DUR TAB 20 MEQ PO SCH (09:45)
[2018-03-04] MEDS: COLCRYS TAB 0.6 MG PO SCH (09:45)
[2018-03-04] MEDS: SYNTHROID 25 mcg TAB PO SCH (09:46)
[2018-03-04] MEDS: ASPIRIN 81 MG CHEWTAB PO SCH (09:46)
[2018-03-04] MEDS: BRILINTA PO SCH ×2 (09:46→21:04)
[2018-03-04] MEDS: MAG-OX TAB PO SCH ×2 (09:46→21:07)
[2018-03-04] MEDS: BUPROPION HCL PO SCH ×2 (09:47→21:05)
[2018-03-04] MEDS: TRAMADOL HCL 200 MG PO SCH (09:48)
[2018-03-04] MEDS: HEMOCYTE-PLUS PO SCH (09:49)
[2018-03-04] MEDS: CYMBALTA PO SCH ×2 (09:54→21:07)
--- NOTE | 2018-03-04 11:11 | PCM.PROG ---
Progress Note - Progress Note for Day of Date: 03/04/18 - Subjective Subjective: WAS ADMITTED FOR CHEST PAIN AND SHORTNESS OF BREATH. TODAY , SHE IS ALERT AND ORIENTED, SITTING UP IN BED ON MORNING ROUNDS. SHE IS NOTED WITH COMPLAINTS OF INTERMITTENT CHEST PAIN, SHORTNESS OF BREATH, NAUSEA, VOMITING, AND GENERALIZED WEAKNESS. STAFF REPORTS THAT PATIENT HAS AN UNSTEADY GAIT WHILE AMBULATING. ON EXAMINATION, HEART IS REGULAR IN RATE AND RHYTHM. BILATERAL LUNGS ARE NOTED WITH DIMINISHED LUNG SOUNDS THROUGHOUT. ABDOMEN IS ROUND, SOFT, AND NON-TENDER WITH NORMAL BOWEL SOUNDS NOTED IN ALL QUADRANTS. THERE IS NORMAL RANGE OF MOTION NOTED TO ALL EXTREMITIES. HER VITALS THIS MORNING ARE 97.8-67-18-94%-103/51. LABS WERE OBTAINED. ABNORMAL LAB VALUES INCLUDE THE FOLLOWING: HCT 35.6, CALCIUM 8.3, ALKALINE PHOSPHATASE 143, ALBUMIN 3.0. CARDIAC ENZYMES AND EKGs HAVE BEEN WITHIN NORMAL LIMITS. TODAY, WE WILL OBTAIN AN ECHOCARDIOGRAM AND ORDER FOR A PHYSICAL THERAPY TO WORK WITH PATIENT. WE SPOKE WITH PATIENT'S DAUGHTER, THEY REQUEST FOR PATIENT TO HAVE SHORT TERM STAY AT A [facility] FACILITY IN [place], [place] FOR FURTHER PHYSICAL THERAPY. WE WILL DISCUSS THIS WITH PHYSICAL THERAPY AND CASE MANAGEMENT. OTHERWISE, WE WILL CONTINUE WITH CURRENT PLAN OF CARE. WE PLAN TO FOLLOW UP WITH AM LABS AND CHEST XRAY AND CONTINUE TO MONITOR PATIENT. - Past Medical Family Social History Past Med/Fam/Surg Hx: No changes since H&P Allergies: Allergies codeine Allergy (Verified 05/12/17 17:14) - Review of Systems ROS: No change since H&P - Vital Signs and I&O's Vital Signs: Temperature 97.8 F Pulse Rate [Left Brachial] 67 Pulse Rate [Apical] 62 Pulse Rate 79 Respiratory Rate 18 Blood Pressure [Right Arm] 117/82 Blood Pressure [Left Arm] 103/51 Blood Pressure 106/62 O2 Sat by Pulse Oximetry 94 Intake and Output: Intake & Output 03/01/18 03/02/18 03/03/18 03/04/18 11:59 11:59 11:59 11:59 Intake Total 230 1360 Balance 230 1360 - Physical Exam Oriented: Normal Eyes: Normal Ear: Normal Nose: Normal Throat: Normal Respiratory: Generalized, Diminished Cardiovascular: Normal. negative: S3, S4, Murmur, Edema : Normal Auscultation: Bowel Sounds: Normal Palpation: Normal Tenderness: Normal Skin: Normal Musculoskeletal: Normal Psychiatric: Normal Mood Description: Calm Affect: Normal Speech Pattern: Clear, Appropriate - Laboratory and Diagnostics Result Diagrams: 03/04/18 04:20 03/04/18 04:20 Labs: Laboratory WBC 4.8 X10^3/uL (3.6-10.0) 03/04/18 04:20 RBC 4.05 X10^6/uL (3.5-5.4) 03/04/18 04:20 Hgb 12.0 g/dL (12.0-16.0) 03/04/18 04:20 Hct 35.6 % (36.0-47.0) L 03/04/18 04:20 MCV 87.9 fL (80.0-100.0) 03/04/18 04:20 MCH 29.7 pg (27.0-34.0) 03/04/18 04:20 MCHC 33.8 g/dL (33.0-35.0) 03/04/18 04:20 RDW 15.1 % (11.6-16.5) 03/04/18 04:20 Plt Count 214 X10^3/uL (150.0-450.0) 03/04/18 04:20 MPV 9.5 fL (7.4-11.0) 03/04/18 04:20 Neut % (Auto) 50.2 % (42.0-75.0) 03/04/18 04:20 Lymph % (Auto) 35.7 % (21.0-51.0) 03/04/18 04:20 [place] % (Auto) 9.4 % (0.0-13.0) 03/04/18 04:20 Eos % (Auto) 4.1 % (0.9-2.9) H 03/04/18 04:20 Baso % (Auto) 0.6 % (0.2-1.0) 03/04/18 04:20 Neut # (Auto) 2.4 x10^3/uL (2.2-4.8) 03/04/18 04:20 Lymph # (Auto) 1.7 X10^3/uL (1.3-2.9) 03/04/18 04:20 [place] # (Auto) 0.5 x10^3/uL (0.3-0.8) 03/04/18 04:20 Eos # (Auto) 0.2 x10^3/uL (0.0-0.2) 03/04/18 04:20 Baso # (Auto) 0.0 X10^3/uL (0.0-0.1) 03/04/18 04:20 Absolute Nucleated RBC 0.0 /100WBC 03/04/18 04:20 INR Target Range - 03/02/18 21:55 INR 0.95 (0.8-1.3) 03/02/18 21:55 APTT 31.5 SECONDS (22.9-36.5) 03/02/18 21:55 PTT Comment - 03/02/18 21:55 D-Dimer 608 ng/mL (0-400) H* 03/02/18 21:55 Sodium 141 mmol/L (136-145) 03/04/18 04:20 Corrected Sodium TNP 03/04/18 04:20 Potassium 4.2 mmol/L (3.5-5.1) 03/04/18 04:20 Chloride 105 mmol/L (98-107) 03/04/18 04:20 Carbon Dioxide 29.2 mmol/L (21-32) 03/04/18 04:20 BUN 10 mg/dL (7-18) 03/04/18 04:20 Creatinine 0.57 mg/dL (0.55-1.02) 03/04/18 04:20 Est GFR (MDRD) Af Amer > 60 (>60) 03/04/18 04:20 Est GFR (MDRD) Non-Af > 60 (>60) 03/04/18 04:20 Glucose 97 mg/dL (65-99) 03/04/18 04:20 Calcium 8.3 mg/dL (8.5-10.1) L 03/04/18 04:20 Corrected Calcium 9.1 mg/dL (8.5-10.1) 03/04/18 04:20 Magnesium 1.6 mg/dL (1.7-2.9) L 03/02/18 21:55 Total Bilirubin 0.40 mg/dL (0.2-1.0) 03/04/18 04:20 AST 30 Units/L (15-37) 03/04/18 04:20 ALT 51 Units/L (12-78) 03/04/18 04:20 Alkaline Phosphatase 143 Units/L (46-116) H 03/04/18 04:20 Creatine Kinase 85 Units/L (26-192) 03/03/18 11:00 CK-MB (CK-2) 1.5 ng/mL (0-4.0) 03/03/18 11:00 CK/CKMB % Calc 1.8 % (<4) 03/03/18 11:00 Troponin I < 0.02 ng/mL (0-1.5) 03/03/18 11:00 B-Natriuretic Peptide 63.9 pg/mL (0-79) 03/02/18 21:55 Total Protein 6.7 g/dL (6.4-8.2) 03/04/18 04:20 Albumin 3.0 g/dL (3.4-5.0) L 03/04/18 04:20 Globulin 3.7 g/dL (2.5-4.5) 03/04/18 04:20 Albumin/Globulin Ratio 0.8 Ratio (1.1-2.1) L 03/04/18 04:20 Triglycerides 85 mg/dL (0-150) 03/03/18 05:16 Cholesterol 113 mg/dL (0-200) 03/03/18 05:16 LDL Cholesterol, Calc 47 mg/dL (0-100) 03/03/18 05:16 HDL Cholesterol 49 mg/dL (40-60) 03/03/18 05:16 Cholesterol/HDL Ratio 2.3 (0.0-5.0) 03/03/18 05:16 - Plan (1) Chest pain Status: Acute Qualifiers: Chest pain type: precordial pain Qualified Code(s): R07.2 - Precordial pain Plan: OBTAIN ECHO, TELEMETRY, SUPPLEMENTAL OXYGEN, CONTINUE TO MONITOR (2) Shortness of breath Status: Acute Plan: OBTAIN ECHO, TELEMETRY, SUPPLEMENTAL OXYGEN, CONTINUE TO MONITOR (3) Nausea & vomiting Status: Acute Qualifiers: Vomiting Intractability: unspecified Plan: CONTINUE REGLAN, CONTINUE ZOFRAN, CONTINUE PHENERGAN, CONTINUE TO MONITOR (4) Unsteady gait Status: Acute Plan: PHYSICAL THERAPY, CONTINUE TO MONITOR
[2018-03-04] MEDS: PHENERGAN TAB 25 MG PO PRN (13:15)
[2018-03-04] MEDS: COLACE CAP 100 MG PO SCH (21:05)
[2018-03-04] MEDS: MILK OF MAGNESIA PO SCH (21:07)
[2018-03-04] MEDS: CRESTOR TAB 10 MG PO SCH (21:10)
[2018-03-05] MEDS: MORPHINE SULFATE INJ 4 MG IVP PRN ×3 (04:35→21:31)
[2018-03-05 06:23] LABS: BASOPHILS % (AUTO) 0.7 % (0.2-1.0); EOSINOPHILS # (AUTO) 0.2 x10^3/uL (0.0-0.2); EOSINOPHILS % (AUTO) 4.7 % (0.9-2.9); HEMATOCRIT 34.1 % (36.0-47.0); HEMOGLOBIN 11.7 g/dL (12.0-16.0); LYMPHOCYTES # (AUTO) 1.8 X10^3/uL (1.3-2.9); MEAN CORPUSCULAR HEMOGLOBIN 29.8 pg (27.0-34.0); MEAN CORPUSCULAR HGB CONC 34.2 g/dL (33.0-35.0); MEAN CORPUSCULAR VOLUME 87.1 fL (80.0-100.0); MEAN PLATELET VOLUME 9.4 fL (7.4-11.0); MONOCYTES # (AUTO) 0.6 x10^3/uL (0.3-0.8); MONOCYTES % (AUTO) 10.8 % (0.0-13.0); NEUTROPHILS # (AUTO) 2.5 x10^3/uL (2.2-4.8); NEUTROPHILS % (AUTO) 48.8 % (42.0-75.0); PLATELET COUNT 208 X10^3/uL (150.0-450.0); RED BLOOD COUNT 3.91 X10^6/uL (3.5-5.4); RED CELL DISTRIBUTION WIDTH 14.7 % (11.6-16.5); WHITE BLOOD COUNT 5.2 X10^3/uL (3.6-10.0)
[2018-03-05] MEDS: XANAX PO SCH ×3 (06:32→21:29)
[2018-03-05 06:36] LABS: ALANINE AMINOTRANSFERASE 47 Units/L (12-78); ALKALINE PHOSPHATASE 142 Units/L (46-116); ASPARTATE AMINO TRANSFERASE 29 Units/L (15-37); BLOOD UREA NITROGEN 9 mg/dL (7-18); CALCIUM 8.3 mg/dL (8.5-10.1); CARBON DIOXIDE 31.3 mmol/L (21-32); CHLORIDE 104 mmol/L (98-107); COR CA(FOR HYPOALB) 9.1 mg/dL (8.5-10.1); CREATININE 0.63 mg/dL (0.55-1.02); SODIUM 140 mmol/L (136-145); TOTAL PROTEIN 6.6 g/dL (6.4-8.2); eGFR BLACK RACES > 60 (>60); eGFR NON BLACK RACES > 60 (>60)
[2018-03-05] MEDS: BRILINTA PO SCH ×2 (10:25→21:30)
[2018-03-05] MEDS: PROTONIX TAB 40 MG PO SCH (10:25)
[2018-03-05] MEDS: SYNTHROID 25 mcg TAB PO SCH (10:25)
[2018-03-05] MEDS: K-DUR TAB 20 MEQ PO SCH (10:26)
[2018-03-05] MEDS: REGLAN TAB 10 MG PO SCH ×4 (10:26→21:30)
[2018-03-05] MEDS: REQUIP PO SCH (10:26)
[2018-03-05] MEDS: COLCRYS TAB 0.6 MG PO SCH (10:26)
[2018-03-05] MEDS: MAG-OX TAB PO SCH ×2 (10:26→21:31)
[2018-03-05] MEDS: ASPIRIN 81 MG CHEWTAB PO SCH (10:26)
[2018-03-05] MEDS: RANEXA PO SCH ×2 (10:27→21:30)
[2018-03-05] MEDS: HEMOCYTE-PLUS PO SCH (10:27)
[2018-03-05] MEDS: CYMBALTA PO SCH ×2 (10:33→21:31)
[2018-03-05] MEDS: BUPROPION HCL PO SCH ×2 (10:34→21:28)
[2018-03-05] MEDS: TRAMADOL HCL 200 MG PO SCH (10:34)
[2018-03-05] MEDS: ALDACTONE TAB 25 MG PO SCH (11:40)
[2018-03-05] MEDS: NORCO 10/325 TAB PO PRN (15:27)
[2018-03-05] MEDS: LYRICA CAP 100 MG PO PRN (15:29)
[2018-03-05] MEDS: CRESTOR TAB 10 MG PO SCH (21:28)
[2018-03-05] MEDS: COLACE CAP 100 MG PO SCH (21:29)
[2018-03-05] MEDS: PHENERGAN TAB 25 MG PO PRN (21:30)
[2018-03-05] MEDS: MILK OF MAGNESIA PO SCH (21:31)
[2018-03-05 21:39] LABS: BILIRUBIN,URINE NEGATIVE (NEGATIVE); BLOOD/HEMOGLOBIN,URINE NEGATIVE (NEGATIVE); GLUCOSE, URINE NEGATIVE (NEGATIVE); KETONES,URINE NEGATIVE (NEGATIVE); LEUKOCYTE ESTERASE ,URINE 1+ (NEGATIVE); NITRITES,URINE NEGATIVE (NEGATIVE); PROTEIN,URINE NEGATIVE (NEGATIVE); UROBILINOGEN,URINE NORMAL (NORMAL)
[2018-03-05 21:41] LABS: APPEARANCE,URINE SLIGHTLY HAZY (CLEAR); COLOR,URINE YELLOW (YELLOW)
[2018-03-05 21:44] LABS: RBC,URINE 0-2 /HPF (NONE SEEN); SQUAMOUS EPITHELIAL CELL,UR RARE /HPF (NEGATIVE)
[2018-03-05 21:45] LABS: BACTERIA,URINE NEGATIVE /HPF (NEGATIVE)
[2018-03-06] MEDS: XANAX PO SCH ×3 (05:54→22:27)
[2018-03-06 06:23] LABS: BASOPHILS % (AUTO) 0.7 % (0.2-1.0); EOSINOPHILS # (AUTO) 0.3 x10^3/uL (0.0-0.2); EOSINOPHILS % (AUTO) 5.1 % (0.9-2.9); HEMATOCRIT 34.4 % (36.0-47.0); HEMOGLOBIN 11.8 g/dL (12.0-16.0); LYMPHOCYTES # (AUTO) 1.8 X10^3/uL (1.3-2.9); LYMPHOCYTES % (AUTO) 33.9 % (21.0-51.0); MEAN CORPUSCULAR HEMOGLOBIN 29.9 pg (27.0-34.0); MEAN CORPUSCULAR HGB CONC 34.3 g/dL (33.0-35.0); MEAN CORPUSCULAR VOLUME 87.1 fL (80.0-100.0); MEAN PLATELET VOLUME 9.4 fL (7.4-11.0); MONOCYTES # (AUTO) 0.6 x10^3/uL (0.3-0.8); MONOCYTES % (AUTO) 11.1 % (0.0-13.0); NEUTROPHILS # (AUTO) 2.6 x10^3/uL (2.2-4.8); NEUTROPHILS % (AUTO) 49.2 % (42.0-75.0); PLATELET COUNT 202 X10^3/uL (150.0-450.0); RED BLOOD COUNT 3.95 X10^6/uL (3.5-5.4); RED CELL DISTRIBUTION WIDTH 15.1 % (11.6-16.5); WHITE BLOOD COUNT 5.4 X10^3/uL (3.6-10.0)
[2018-03-06 06:41] LABS: ALANINE AMINOTRANSFERASE 49 Units/L (12-78); ALKALINE PHOSPHATASE 136 Units/L (46-116); ASPARTATE AMINO TRANSFERASE 36 Units/L (15-37); BLOOD UREA NITROGEN 11 mg/dL (7-18); CALCIUM 8.6 mg/dL (8.5-10.1); CARBON DIOXIDE 31.2 mmol/L (21-32); CHLORIDE 103 mmol/L (98-107); COR CA(FOR HYPOALB) 9.4 mg/dL (8.5-10.1); CREATININE 0.61 mg/dL (0.55-1.02); SODIUM 139 mmol/L (136-145); TOTAL PROTEIN 6.9 g/dL (6.4-8.2); eGFR BLACK RACES > 60 (>60); eGFR NON BLACK RACES > 60 (>60)
[2018-03-06] MEDS: ALDACTONE TAB 25 MG PO SCH ×2 (14:58→16:30)
[2018-03-06] MEDS: BRILINTA PO SCH ×3 (14:58→22:26)
[2018-03-06] MEDS: ASPIRIN 81 MG CHEWTAB PO SCH ×2 (14:58→16:30)
[2018-03-06] MEDS: K-DUR TAB 20 MEQ PO SCH ×2 (15:08→16:31)
[2018-03-06] MEDS: HEMOCYTE-PLUS PO SCH ×2 (15:08→16:30)
[2018-03-06] MEDS: BUPROPION HCL PO SCH ×3 (15:08→22:26)
[2018-03-06] MEDS: CYMBALTA PO SCH ×2 (15:08→22:26)
[2018-03-06] MEDS: COLCRYS TAB 0.6 MG PO SCH ×2 (15:08→16:30)
[2018-03-06] MEDS: RANEXA PO SCH ×3 (15:09→22:27)
[2018-03-06] MEDS: REQUIP PO SCH ×2 (15:09→16:25)
[2018-03-06] MEDS: PROTONIX TAB 40 MG PO SCH ×2 (15:09→16:31)
[2018-03-06] MEDS: MAG-OX TAB PO SCH ×3 (15:09→22:26)
[2018-03-06] MEDS: TRAMADOL HCL 200 MG PO SCH ×2 (15:09→16:24)
[2018-03-06] MEDS: SYNTHROID 25 mcg TAB PO SCH ×2 (15:09→16:31)
[2018-03-06] MEDS: REGLAN TAB 10 MG PO SCH ×3 (15:09→22:27)
[2018-03-06] MEDS: LYRICA CAP 100 MG PO PRN (16:28)
[2018-03-06] MEDS: MIRALAX POWDER (1 DOSE 17GM) PO SCH ×3 (18:14→22:27)
[2018-03-06] MEDS: NORCO 10/325 TAB PO PRN (18:26)
[2018-03-06] MEDS: COLACE CAP 100 MG PO SCH (22:26)
[2018-03-06] MEDS: MILK OF MAGNESIA PO SCH (22:26)
[2018-03-06] MEDS: MORPHINE SULFATE INJ 4 MG IVP PRN (23:17)
[2018-03-06] MEDS: ZOFRAN INJ 4 MG VIAL IVP PRN (23:17)
[2018-03-06] MEDS: CRESTOR TAB 10 MG PO SCH (23:57)
[2018-03-07] MEDS: MILK OF MAGNESIA PO SCH ×2 (00:07→21:44)
[2018-03-07] MEDS: XANAX PO SCH ×3 (05:52→21:46)
[2018-03-07 06:38] LABS: BASOPHILS % (AUTO) 0.7 % (0.2-1.0); EOSINOPHILS # (AUTO) 0.3 x10^3/uL (0.0-0.2); EOSINOPHILS % (AUTO) 4.9 % (0.9-2.9); HEMATOCRIT 35.5 % (36.0-47.0); HEMOGLOBIN 12.1 g/dL (12.0-16.0); LYMPHOCYTES # (AUTO) 1.8 X10^3/uL (1.3-2.9); LYMPHOCYTES % (AUTO) 27.4 % (21.0-51.0); MEAN CORPUSCULAR HEMOGLOBIN 29.9 pg (27.0-34.0); MEAN CORPUSCULAR HGB CONC 34.1 g/dL (33.0-35.0); MEAN CORPUSCULAR VOLUME 87.9 fL (80.0-100.0); MEAN PLATELET VOLUME 9.8 fL (7.4-11.0); MONOCYTES # (AUTO) 0.6 x10^3/uL (0.3-0.8); NEUTROPHILS # (AUTO) 3.8 x10^3/uL (2.2-4.8); PLATELET COUNT 213 X10^3/uL (150.0-450.0); RED BLOOD COUNT 4.04 X10^6/uL (3.5-5.4); RED CELL DISTRIBUTION WIDTH 15.1 % (11.6-16.5); WHITE BLOOD COUNT 6.5 X10^3/uL (3.6-10.0)
[2018-03-07 06:46] LABS: ALANINE AMINOTRANSFERASE 60 Units/L (12-78); ALBUMIN 3.1 g/dL (3.4-5.0); ALKALINE PHOSPHATASE 146 Units/L (46-116); ASPARTATE AMINO TRANSFERASE 47 Units/L (15-37); BLOOD UREA NITROGEN 11 mg/dL (7-18); CALCIUM 8.5 mg/dL (8.5-10.1); CARBON DIOXIDE 27.9 mmol/L (21-32); CHLORIDE 103 mmol/L (98-107); COR CA(FOR HYPOALB) 9.2 mg/dL (8.5-10.1); CREATININE 0.66 mg/dL (0.55-1.02); SODIUM 139 mmol/L (136-145); TOTAL PROTEIN 7.2 g/dL (6.4-8.2); eGFR BLACK RACES > 60 (>60); eGFR NON BLACK RACES > 60 (>60)
[2018-03-07] MEDS: REGLAN TAB 10 MG PO SCH ×4 (10:11→21:45)
[2018-03-07] MEDS: PROTONIX TAB 40 MG PO SCH (10:11)
[2018-03-07] MEDS: SYNTHROID 25 mcg TAB PO SCH (10:12)
[2018-03-07] MEDS: COLCRYS TAB 0.6 MG PO SCH (10:12)
[2018-03-07] MEDS: REQUIP PO SCH (10:12)
[2018-03-07] MEDS: BRILINTA PO SCH ×2 (10:12→21:43)
[2018-03-07] MEDS: ALDACTONE TAB 25 MG PO SCH (10:12)
[2018-03-07] MEDS: ASPIRIN 81 MG CHEWTAB PO SCH (10:13)
[2018-03-07] MEDS: MAG-OX TAB PO SCH ×2 (10:13→21:43)
[2018-03-07] MEDS: CYMBALTA PO SCH ×2 (10:13→21:43)
[2018-03-07] MEDS: K-DUR TAB 20 MEQ PO SCH (10:13)
[2018-03-07] MEDS: HEMOCYTE-PLUS PO SCH (10:13)
[2018-03-07] MEDS: BUPROPION HCL PO SCH ×2 (10:14→21:43)
[2018-03-07] MEDS: TRAMADOL HCL 200 MG PO SCH (10:14)
[2018-03-07] MEDS: RANEXA PO SCH ×2 (11:49→21:44)
[2018-03-07] MEDS: MORPHINE SULFATE INJ 4 MG IVP PRN (14:31)
[2018-03-07] MEDS: ZOFRAN INJ 4 MG VIAL IVP PRN (14:31)
[2018-03-07] MEDS: COLACE CAP 100 MG PO SCH (21:43)
[2018-03-07] MEDS: CRESTOR TAB 10 MG PO SCH (21:43)
[2018-03-07] MEDS: MIRALAX POWDER (1 DOSE 17GM) PO SCH (21:44)
[2018-03-08] MEDS: XANAX PO SCH (05:56)
[2018-03-08 06:10] LABS: BASOPHILS % (AUTO) 0.7 % (0.2-1.0); EOSINOPHILS # (AUTO) 0.3 x10^3/uL (0.0-0.2); EOSINOPHILS % (AUTO) 5.2 % (0.9-2.9); HEMATOCRIT 35.5 % (36.0-47.0); HEMOGLOBIN 12.1 g/dL (12.0-16.0); LYMPHOCYTES # (AUTO) 1.8 X10^3/uL (1.3-2.9); LYMPHOCYTES % (AUTO) 29.5 % (21.0-51.0); MEAN CORPUSCULAR HEMOGLOBIN 29.7 pg (27.0-34.0); MEAN CORPUSCULAR VOLUME 87.2 fL (80.0-100.0); MEAN PLATELET VOLUME 9.4 fL (7.4-11.0); MONOCYTES # (AUTO) 0.6 x10^3/uL (0.3-0.8); MONOCYTES % (AUTO) 9.8 % (0.0-13.0); NEUTROPHILS # (AUTO) 3.4 x10^3/uL (2.2-4.8); NEUTROPHILS % (AUTO) 54.8 % (42.0-75.0); PLATELET COUNT 219 X10^3/uL (150.0-450.0); RED BLOOD COUNT 4.07 X10^6/uL (3.5-5.4); RED CELL DISTRIBUTION WIDTH 15.2 % (11.6-16.5); WHITE BLOOD COUNT 6.2 X10^3/uL (3.6-10.0)
[2018-03-08 06:38] LABS: ALANINE AMINOTRANSFERASE 70 Units/L (12-78); ALKALINE PHOSPHATASE 120 Units/L (46-116); ASPARTATE AMINO TRANSFERASE 61 Units/L (15-37); BLOOD UREA NITROGEN 8 mg/dL (7-18); CALCIUM 8.5 mg/dL (8.5-10.1); CHLORIDE 103 mmol/L (98-107); COR CA(FOR HYPOALB) 9.3 mg/dL (8.5-10.1); CREATININE 0.71 mg/dL (0.55-1.02); SODIUM 138 mmol/L (136-145); TOTAL PROTEIN 6.8 g/dL (6.4-8.2); eGFR BLACK RACES > 60 (>60); eGFR NON BLACK RACES > 60 (>60)
--- NOTE | 2018-03-08 08:13 | PCM.PROG ---
Progress Note - Progress Note for Day of Date: 03/05/18 - Subjective Subjective: WAS ADMITTED FOR CHEST PAIN AND SHORTNESS OF BREATH. TODAY , SHE IS ALERT AND ORIENTED, SITTING UP IN BED ON MORNING ROUNDS. SHE CONTINUES WITH COMPLAINTS OF SHORTNESS OF BREATH, NAUSEA, GENERALIZED WEAKNESS, AND GENERALIZED PAIN. STAFF REPORTS THAT PATIENT CONTINUES WITH AN UNSTEADY GAIT WHILE AMBULATING. ON EXAMINATION, HEART IS REGULAR IN RATE AND RHYTHM. BILATERAL LUNGS ARE NOTED WITH DIMINISHED LUNG SOUNDS THROUGHOUT. ABDOMEN IS ROUND, SOFT, AND NON-TENDER WITH NORMAL BOWEL SOUNDS NOTED IN ALL QUADRANTS. THERE IS NORMAL RANGE OF MOTION NOTED TO ALL EXTREMITIES. HER VITALS THIS MORNING ARE 98.2-68-18-96%-109/59. LABS WERE OBTAINED. ABNORMAL LAB VALUES INCLUDE THE FOLLOWING: HCT 35.5, AST 61, ALK PHOS 120, ALBUMIN 3.0. PHYSICAL THERAPY CONTINUES WITH WORK WITH PATIENT. CASE MANAGEMENT IS ARRANGING FOR PHYSICAL THERAPY AT [facility] IN [place], [place]. TODAY, WE WILL START PATIENT ON ALDACTONE 25MG PO DAILY. OTHERWISE, WE WILL CONTINUE WITH CURRENT PLAN OF CARE. WE PLAN TO FOLLOW UP WITH AM LABS AND CHEST XRAY AND CONTINUE TO MONITOR PATIENT. - Past Medical Family Social History Past Med/Fam/Surg Hx: No changes since H&P Allergies: Allergies codeine Allergy (Verified 05/12/17 17:14) - Review of Systems ROS: No change since H&P - Vital Signs and I&O's Vital Signs: Temperature 97 F Pulse Rate [Right Brachial] 77 Pulse Rate [Left Brachial] 81 Pulse Rate [Apical] 62 Pulse Rate 79 Respiratory Rate 20 Blood Pressure [Right Arm] 121/68 Blood Pressure [Left Arm] 117/62 Blood Pressure 106/62 O2 Sat by Pulse Oximetry 97 Intake and Output: Intake & Output 03/05/18 03/06/18 03/07/18 03/08/18 11:59 11:59 11:59 11:59 Intake Total 1130 2520 1920 1320 Output Total 0 0 0 Balance 1130 2520 1920 1320 - Physical Exam Oriented: Normal Eyes: Normal Ear: Normal Nose: Normal Throat: Normal Respiratory: Generalized, Diminished Cardiovascular: Normal. negative: S3, S4, Murmur, Edema : Normal Auscultation: Bowel Sounds: Normal Palpation: Normal Tenderness: Normal Skin: Normal Musculoskeletal: Normal Psychiatric: Normal Mood Description: Calm Affect: Normal Speech Pattern: Clear, Appropriate - Laboratory and Diagnostics Result Diagrams: 03/08/18 05:25 03/08/18 05:25 Labs: 03/04/18 00:12 Urine,Clean Catch Urine Culture - Final Laboratory WBC 6.2 X10^3/uL (3.6-10.0) 03/08/18 05:25 RBC 4.07 X10^6/uL (3.5-5.4) 03/08/18 05:25 Hgb 12.1 g/dL (12.0-16.0) 03/08/18 05:25 Hct 35.5 % (36.0-47.0) L 03/08/18 05:25 MCV 87.2 fL (80.0-100.0) 03/08/18 05:25 MCH 29.7 pg (27.0-34.0) 03/08/18 05:25 MCHC 34.0 g/dL (33.0-35.0) 03/08/18 05:25 RDW 15.2 % (11.6-16.5) 03/08/18 05:25 Plt Count 219 X10^3/uL (150.0-450.0) 03/08/18 05:25 MPV 9.4 fL (7.4-11.0) 03/08/18 05:25 Neut % (Auto) 54.8 % (42.0-75.0) 03/08/18 05:25 Lymph % (Auto) 29.5 % (21.0-51.0) 03/08/18 05:25 [place] % (Auto) 9.8 % (0.0-13.0) 03/08/18 05:25 Eos % (Auto) 5.2 % (0.9-2.9) H 03/08/18 05:25 Baso % (Auto) 0.7 % (0.2-1.0) 03/08/18 05:25 Neut # (Auto) 3.4 x10^3/uL (2.2-4.8) 03/08/18 05:25 Lymph # (Auto) 1.8 X10^3/uL (1.3-2.9) 03/08/18 05:25 [place] # (Auto) 0.6 x10^3/uL (0.3-0.8) 03/08/18 05:25 Eos # (Auto) 0.3 x10^3/uL (0.0-0.2) H 03/08/18 05:25 Baso # (Auto) 0.0 X10^3/uL (0.0-0.1) 03/08/18 05:25 Absolute Nucleated RBC 0.0 /100WBC 03/08/18 05:25 INR Target Range - 03/02/18 21:55 INR 0.95 (0.8-1.3) 03/02/18 21:55 APTT 31.5 SECONDS (22.9-36.5) 03/02/18 21:55 PTT Comment - 03/02/18 21:55 D-Dimer 608 ng/mL (0-400) H* 03/02/18 21:55 Sodium 138 mmol/L (136-145) 03/08/18 05:25 Corrected Sodium TNP 03/08/18 05:25 Potassium 4.2 mmol/L (3.5-5.1) 03/08/18 05:25 Chloride 103 mmol/L (98-107) 03/08/18 05:25 Carbon Dioxide 29.0 mmol/L (21-32) 03/08/18 05:25 BUN 8 mg/dL (7-18) 03/08/18 05:25 Creatinine 0.71 mg/dL (0.55-1.02) 03/08/18 05:25 Est GFR (MDRD) Af Amer > 60 (>60) 03/08/18 05:25 Est GFR (MDRD) Non-Af > 60 (>60) 03/08/18 05:25 Glucose 94 mg/dL (65-99) 03/08/18 05:25 Calcium 8.5 mg/dL (8.5-10.1) 03/08/18 05:25 Corrected Calcium 9.3 mg/dL (8.5-10.1) 03/08/18 05:25 Magnesium 1.6 mg/dL (1.7-2.9) L 03/02/18 21:55 Total Bilirubin 0.40 mg/dL (0.2-1.0) 03/08/18 05:25 AST 61 Units/L (15-37) H 03/08/18 05:25 ALT 70 Units/L (12-78) 03/08/18 05:25 Alkaline Phosphatase 120 Units/L (46-116) H 03/08/18 05:25 Creatine Kinase 85 Units/L (26-192) 03/03/18 11:00 CK-MB (CK-2) 1.5 ng/mL (0-4.0) 03/03/18 11:00 CK/CKMB % Calc 1.8 % (<4) 03/03/18 11:00 Troponin I < 0.02 ng/mL (0-1.5) 03/03/18 11:00 B-Natriuretic Peptide 63.9 pg/mL (0-79) 03/02/18 21:55 Total Protein 6.8 g/dL (6.4-8.2) 03/08/18 05:25 Albumin 3.0 g/dL (3.4-5.0) L 03/08/18 05:25 Globulin 3.8 g/dL (2.5-4.5) 03/08/18 05:25 Albumin/Globulin Ratio 0.8 Ratio (1.1-2.1) L 03/08/18 05:25 Triglycerides 85 mg/dL (0-150) 03/03/18 05:16 Cholesterol 113 mg/dL (0-200) 03/03/18 05:16 LDL Cholesterol, Calc 47 mg/dL (0-100) 03/03/18 05:16 HDL Cholesterol 49 mg/dL (40-60) 03/03/18 05:16 Cholesterol/HDL Ratio 2.3 (0.0-5.0) 03/03/18 05:16 Specimen Type Clean catch urine 03/05/18 21:25 Urine Color Yellow (YELLOW) 03/05/18 21:25 Urine Appearance Slightly hazy (CLEAR) 03/05/18 21:25 Urine pH 7.0 (5.0 - 8.0) 03/05/18 21:25 Ur Specific [place] 1.010 (1.000-1.030) 03/05/18 21:25 Urine Protein Negative (NEGATIVE) 03/05/18 21:25 Urine Glucose (UA) Negative (NEGATIVE) 03/05/18 21:25 Urine Ketones Negative (NEGATIVE) 03/05/18 21:25 Urine Occult Blood Negative (NEGATIVE) 03/05/18 21:25 Urine Nitrite Negative (NEGATIVE) 03/05/18 21:25 Urine Bilirubin Negative (NEGATIVE) 03/05/18 21:25 Urine Urobilinogen Normal (NORMAL) 03/05/18 21:25 Ur Leukocyte Esterase 1+ (NEGATIVE) 03/05/18 21:25 Urine RBC 0-2 /HPF (NONE SEEN) 03/05/18 21:25 Urine WBC 0-2 /HPF (NONE SEEN) 03/05/18 21:25 Ur Squamous Epith Cells Rare /HPF (NEGATIVE) 03/05/18 21:25 Urine Bacteria Negative /HPF (NEGATIVE) 03/05/18 21:25 Ur Culture Indicated? No/not indicated 03/05/18 21:25 - Plan (1) Chest pain Status: Resolved Qualifiers: Chest pain type: precordial pain Qualified Code(s): R07.2 - Precordial pain Plan: TELEMETRY, SUPPLEMENTAL OXYGEN, CONTINUE TO MONITOR (2) Shortness of breath Status: Acute Plan: ALDACTONE 25MG PO DAILY, TELEMETRY, SUPPLEMENTAL OXYGEN, CONTINUE TO MONITOR (3) Nausea & vomiting Status: Acute Qualifiers: Vomiting Intractability: unspecified Plan: CONTINUE REGLAN, CONTINUE ZOFRAN, CONTINUE PHENERGAN, CONTINUE TO MONITOR (4) Unsteady gait Status: Acute Plan: PHYSICAL THERAPY, CONTINUE TO MONITOR
[2018-03-08] MEDS: REQUIP PO SCH (09:22)
[2018-03-08] MEDS: SYNTHROID 25 mcg TAB PO SCH (09:22)
[2018-03-08] MEDS: MAG-OX TAB PO SCH (09:22)
[2018-03-08] MEDS: RANEXA PO SCH (09:22)
[2018-03-08] MEDS: K-DUR TAB 20 MEQ PO SCH (09:23)
[2018-03-08] MEDS: ASPIRIN 81 MG CHEWTAB PO SCH (09:23)
[2018-03-08] MEDS: REGLAN TAB 10 MG PO SCH (09:23)
[2018-03-08] MEDS: COLCRYS TAB 0.6 MG PO SCH (09:23)
[2018-03-08] MEDS: BRILINTA PO SCH (09:23)
[2018-03-08] MEDS: TRAMADOL HCL 200 MG PO SCH (09:24)
[2018-03-08] MEDS: ALDACTONE TAB 25 MG PO SCH (09:24)
[2018-03-08] MEDS: PROTONIX TAB 40 MG PO SCH (09:24)
[2018-03-08] MEDS: BUPROPION HCL PO SCH (09:24)
[2018-03-08] MEDS: HEMOCYTE-PLUS PO SCH (09:24)
[2018-03-08] MEDS: CYMBALTA PO SCH (09:26)
[2018-03-08] MEDS ORDERED: DULCOLAX SUPPOSITORY 10 MG RECTAL ONE (13:44)
[2018-03-08 14:04] VITALS: BP 111/52
== END 2018-03-08 16:00 | DRG 313 ==
LOC: ER 21:00 → MED/SURG 03-03 00:18 → OBSVTOIN 03-05 08:30
PROVIDERS: ADMIT Internal Medicine; ATTEND Internal Medicine
DX: R07.2 Precordial pain (principal); R06.03 Acute respiratory distress; I25.10 Atherosclerotic heart disease of native coronary artery without angina pectoris; R06.02 Shortness of breath; R26.89 Other abnormalities of gait and mobility; R11.2 Nausea with vomiting, unspecified; I50.9 Heart failure, unspecified; I10 Essential (primary) hypertension; F32.89 Other specified depressive episodes; R53.1 Weakness
CPT/HCPCS: 36415; 71045; 71275; 80053; 80061; 81001; 82550; 82553; 83735; 83880; 84484; 85025; 85378; 85610; 85730; 87086; 93005; 94760; 96365; 96374; 96375; 97535; 99284; A4216; A4222; G8979; G8980; G8988; G8989; Q0169; G0378; J2270; J2405

== ENCOUNTER 2019-12-07 14:07 | Observation (INO) ==
[2019-12-07] MEDS ORDERED: STERILE WATER IRRIGATION IR ONE (17:23)
[2019-12-07] MEDS ORDERED: HumuLIN R SUBCUT PRN (17:42)
[2019-12-07] MEDS ORDERED: POTASSIUM CHLORIDE LIQ 20 MEQ UDC PO PRN (17:44)
[2019-12-07] MEDS ORDERED: MICRO K EXTEN CAP 10 MEQ PO PRN (17:44)
[2019-12-07] MEDS ORDERED: POTASSIUM CHL 40 MEQ/NS 0.45% 500 ML IV PRN (17:44)
[2019-12-07] MEDS ORDERED: K-RIDER 10 MEQ/NS 100 ML 10 MEQ/100 ML BAG IV PRN (17:44)
[2019-12-07] MEDS ORDERED: KLOR-CON PO PRN (17:44)
[2019-12-07] MEDS ORDERED: K-DUR TAB 20 MEQ PO PRN (17:44)
[2019-12-07] MEDS ORDERED: POTASSIUM CHL 60 MEQ/NS 0.45% 500 ML IV PRN (17:44)
[2019-12-07 17:49] LABS: BILIRUBIN,URINE NEGATIVE (NEGATIVE); BLOOD/HEMOGLOBIN,URINE 1+ (NEGATIVE); GLUCOSE, URINE NEGATIVE (NEGATIVE); KETONES,URINE NEGATIVE (NEGATIVE); LEUKOCYTE ESTERASE ,URINE 1+ (NEGATIVE); NITRITES,URINE NEGATIVE (NEGATIVE); PH,URINE 6.5 (5.0 - 8.0); PROTEIN,URINE NEGATIVE (NEGATIVE); UROBILINOGEN,URINE NORMAL (NORMAL)
[2019-12-07 18:23] LABS: APPEARANCE,URINE SLIGHTLY HAZY (CLEAR); COLOR,URINE YELLOW (YELLOW)
[2019-12-07 18:24] LABS: AMORPHOUS SEDIMENT,UR TRACE /HPF (NEGATIVE); BACTERIA,URINE TRACE /HPF (NEGATIVE); SQUAMOUS EPITHELIAL CELL,UR RARE /HPF (NEGATIVE)
--- NOTE | 2019-12-07 18:30 | RAD ---
CHEST, 1 VIEWHISTORY: SOB, CHFStudy: Single view of the chest.Comparison:NoneFindings:Cardiomegaly and pulmonary vascular congestionno focal consolidations, pleural effusions or pneumothorax. Osseous structures demonstrate no acute abnormality.IMPRESSION:1. Cardiomegaly and pulmonary vascular congestion.Electronically signed by: DALILA JARRELL (Dec 07, 2019 18:28:45)
[2019-12-07 18:35] VITALS: BMI 35.7
[2019-12-07 18:50] LABS: BASOPHILS % (AUTO) 0.6 % (0.2-1.0); EOSINOPHILS # (AUTO) 0.1 x10^3/uL (0.0-0.2); EOSINOPHILS % (AUTO) 2.3 % (0.9-2.9); HEMOGLOBIN 12.6 g/dL (12.0-16.0); LYMPHOCYTES # (AUTO) 1.9 X10^3/uL (1.3-2.9); LYMPHOCYTES % (AUTO) 34.9 % (21.0-51.0); MEAN CORPUSCULAR HEMOGLOBIN 30.6 pg (27.0-34.0); MEAN CORPUSCULAR HGB CONC 33.3 g/dL (33.0-35.0); MEAN PLATELET VOLUME 8.6 fL (7.4-11.0); MONOCYTES # (AUTO) 0.5 x10^3/uL (0.3-0.8); MONOCYTES % (AUTO) 9.2 % (0.0-13.0); NEUTROPHILS # (AUTO) 2.9 x10^3/uL (2.2-4.8); PLATELET COUNT 197 X10^3/uL (150.0-450.0); RED BLOOD COUNT 4.13 X10^6/uL (3.5-5.4); RED CELL DISTRIBUTION WIDTH 13.3 % (11.6-16.5); WHITE BLOOD COUNT 5.4 X10^3/uL (3.6-10.0)
[2019-12-07 19:30] LABS: ALANINE AMINOTRANSFERASE 47 Units/L (12-78); ALBUMIN 3.5 g/dL (3.4-5.0); ALKALINE PHOSPHATASE 110 Units/L (46-116); ASPARTATE AMINO TRANSFERASE 43 Units/L (15-37); BLOOD UREA NITROGEN 15 mg/dL (7-18); CALCIUM 9.1 mg/dL (8.5-10.1); CARBON DIOXIDE 34.9 mmol/L (21-32); CHLORIDE 106 mmol/L (98-107); CKMB % 0.9 % (<4); CREATINE KINASE 330 Units/L (26-192); CREATINE KINASE MB 3.1 ng/mL (0-4.0); CREATININE 0.98 mg/dL (0.55-1.02); MAGNESIUM 2.1 mg/dL (1.7-2.9); SODIUM 145 mmol/L (136-145); TROPONIN I < 0.02 ng/mL (0-1.5); eGFR NON BLACK RACES > 60 (>60)
[2019-12-07] MEDS: LASIX IVP SCH (20:56)
[2019-12-07] MEDS: NORCO 5/325 MG TAB PO PRN (22:30)
[2019-12-07] MEDS: AMBIEN PO PRN (22:30)
[2019-12-08 00:18] LABS: CKMB % 1.1 % (<4); CREATINE KINASE 293 Units/L (26-192); CREATINE KINASE MB 3.3 ng/mL (0-4.0); TROPONIN I < 0.02 ng/mL (0-1.5)
--- NOTE | 2019-12-08 06:09 | RAD ---
HISTORYShortness of breathSTUDYCHEST, 1 [id number]/22/2020FINDINGSPatient is status post median sternotomy and CABG. The heart is mildly enlarged. No congestive heart failure is noted. No acute alveolar infiltrates or pleural effusions are identified. Bony thorax is unremarkable.IMPRESSIONContinued cardiomegaly but without congestive heart failureNo definite acute infiltratesElectronically signed by: DELTA DE LA FUENTE (Dec 08, 2019 06:08:06)
[2019-12-08 06:57] LABS: BASOPHILS % (AUTO) 0.4 % (0.2-1.0); EOSINOPHILS # (AUTO) 0.1 x10^3/uL (0.0-0.2); EOSINOPHILS % (AUTO) 2.7 % (0.9-2.9); HEMATOCRIT 34.1 % (36.0-47.0); HEMOGLOBIN 11.7 g/dL (12.0-16.0); LYMPHOCYTES # (AUTO) 1.7 X10^3/uL (1.3-2.9); MEAN CORPUSCULAR HGB CONC 34.2 g/dL (33.0-35.0); MEAN CORPUSCULAR VOLUME 90.5 fL (80.0-100.0); MEAN PLATELET VOLUME 8.7 fL (7.4-11.0); MONOCYTES # (AUTO) 0.5 x10^3/uL (0.3-0.8); MONOCYTES % (AUTO) 10.6 % (0.0-13.0); NEUTROPHILS # (AUTO) 2.3 x10^3/uL (2.2-4.8); NEUTROPHILS % (AUTO) 49.3 % (42.0-75.0); PLATELET COUNT 196 X10^3/uL (150.0-450.0); RED BLOOD COUNT 3.76 X10^6/uL (3.5-5.4); RED CELL DISTRIBUTION WIDTH 13.2 % (11.6-16.5); WHITE BLOOD COUNT 4.7 X10^3/uL (3.6-10.0)
[2019-12-08 07:28] LABS: ALANINE AMINOTRANSFERASE 42 Units/L (12-78); ALBUMIN 3.1 g/dL (3.4-5.0); ALKALINE PHOSPHATASE 106 Units/L (46-116); ASPARTATE AMINO TRANSFERASE 34 Units/L (15-37); BLOOD UREA NITROGEN 12 mg/dL (7-18); CALCIUM 8.7 mg/dL (8.5-10.1); CARBON DIOXIDE 31.2 mmol/L (21-32); CHLORIDE 106 mmol/L (98-107); CKMB % 0.9 % (<4); COR CA(FOR HYPOALB) 9.4 mg/dL (8.5-10.1); COR NA(FOR HYPERGLY) 145 mmol/L (136-145); CREATINE KINASE 217 Units/L (26-192); CREATINE KINASE MB 1.9 ng/mL (0-4.0); CREATININE 0.73 mg/dL (0.55-1.02); SODIUM 144 mmol/L (136-145); TOTAL PROTEIN 6.2 g/dL (6.4-8.2); TROPONIN I < 0.02 ng/mL (0-1.5); eGFR NON BLACK RACES > 60 (>60)
[2019-12-08] MEDS: ELIQUIS PO SCH ×2 (09:06→20:29)
[2019-12-08] MEDS: LASIX IVP SCH ×2 (09:07→20:34)
[2019-12-08] MEDS: BRILINTA PO SCH ×2 (11:19→20:34)
[2019-12-08] MEDS: NORCO 5/325 MG TAB PO PRN ×2 (11:22→20:31)
[2019-12-08] MEDS ORDERED: PHENERGAN TAB 25 MG PO PRN (11:57)
--- NOTE | 2019-12-08 13:58 | DR.UPDATE ---
H&P Update History and Physical Update: History and Physical reviewed and patient examined. Changes noted: Yes with the following: WAS SEEN IN THE OFFICE TODAY FOR COMPLAINTS OF SHORTNESS OF BREATH AND LOWER EXTREMITY SWELLING. SHE HAS A HISTORY OF CHF. SHE REPORTS HAVING A RECENT HEART CATH BY AT [facility] IN [place], [place]. SHE WAS NOTED WITH 3+ PITTING EDEMA TO LOWER EXTREMETIES. SHE WAS ADMITTED FOR FURTHER EVALUATION AND TREATMENT. ON ARRIVAL, VITALS WERE 97.7-76-20-94%-116/56. LABS WERE OBTAINED. ABNORMAL LAB VALUES INCLUDE THE FOLLOWING: POTASSIUM 3.3, CARBON DIOXIDE 34.9, CREATINE KINASE 330. CARDIAC ENZYMES OTHERWISE WITHIN NORMAL LIMITS. URINALYSIS REVEALED: WBC 3-5, RBC 3-5, LEUKOCYTES 1+, BACTERIA TRACE. A CHEST XRAY WAS OBTAINED AND REVEALED: CARDIOMEGALY AND PULMONARY VASCULAR CONGESTION. EKG REVEALED: SINUS RHYTHM WITH HR 73. SHE WAS STARTED ON LASIX 40MG IV Q12H, THE POTASSIUM AND MAGNESIUM PROTOCOLS, AND HOME MEDICATIONS WERE RESUMED. OTHERWISE, WE PLAN TO FOLLOW UP WITH AM LABS AND CONTINUE TO MONITOR. Prescription drug monitoring program results: PDMP was not reviewed H&P Reviewed: Yes Patient was examined?: Yes
[2019-12-08] MEDS: MAG-OX TAB PO SCH ×2 (14:23→20:34)
[2019-12-08] MEDS: CYMBALTA PO SCH (14:29)
[2019-12-08] MEDS: COLCRYS TAB 0.6 MG PO SCH (14:30)
[2019-12-08] MEDS: CLARITIN PO SCH (14:31)
[2019-12-08] MEDS: COLACE CAP 100 MG PO SCH ×2 (14:31→20:28)
[2019-12-08] MEDS: RANEXA PO SCH ×2 (14:32→20:30)
[2019-12-08] MEDS: PROTONIX TAB 40 MG PO SCH (14:32)
[2019-12-08] MEDS: K-DUR TAB 20 MEQ PO SCH ×2 (14:34→20:27)
[2019-12-08] MEDS: XANAX PO PRN ×2 (14:43→20:27)
[2019-12-08] MEDS: FOLIC ACID 400 MCG PO SCH (14:48)
[2019-12-08] MEDS: AMBIEN PO PRN (20:28)
[2019-12-08] MEDS: COREG TAB 6.25 MG PO SCH (20:34)
[2019-12-08] MEDS ORDERED: REQUIP PO SCH (21:00)
[2019-12-08] MEDS ORDERED: CRESTOR TAB 10 MG PO SCH (21:00)
--- NOTE | 2019-12-09 06:15 | RAD ---
HISTORYShortness of breathSTUDYCHEST, 1 [id number]/23/2020FINDINGSPatient is status post median sternotomy and CABG. The heart remains mildly enlarged. No congestive heart failure is noted. No infiltrates or pleural effusions are identified. The bony thorax is unremarkable.IMPRESSIONCardiomegaly without congestive heart failureNo definite infiltratesElectronically signed by: DELTA DE LA FUENTE (Dec 09, 2019 06:14:26)
[2019-12-09 06:43] LABS: BASOPHILS % (AUTO) 0.5 % (0.2-1.0); EOSINOPHILS # (AUTO) 0.2 x10^3/uL (0.0-0.2); EOSINOPHILS % (AUTO) 2.7 % (0.9-2.9); HEMATOCRIT 39.3 % (36.0-47.0); HEMOGLOBIN 13.1 g/dL (12.0-16.0); LYMPHOCYTES # (AUTO) 1.3 X10^3/uL (1.3-2.9); LYMPHOCYTES % (AUTO) 22.9 % (21.0-51.0); MEAN CORPUSCULAR HEMOGLOBIN 30.4 pg (27.0-34.0); MEAN CORPUSCULAR HGB CONC 33.3 g/dL (33.0-35.0); MEAN CORPUSCULAR VOLUME 91.5 fL (80.0-100.0); MEAN PLATELET VOLUME 8.6 fL (7.4-11.0); MONOCYTES # (AUTO) 0.5 x10^3/uL (0.3-0.8); MONOCYTES % (AUTO) 9.9 % (0.0-13.0); NEUTROPHILS # (AUTO) 3.6 x10^3/uL (2.2-4.8); PLATELET COUNT 197 X10^3/uL (150.0-450.0); RED BLOOD COUNT 4.29 X10^6/uL (3.5-5.4); RED CELL DISTRIBUTION WIDTH 13.3 % (11.6-16.5); WHITE BLOOD COUNT 5.6 X10^3/uL (3.6-10.0)
[2019-12-09 06:58] LABS: ALANINE AMINOTRANSFERASE 42 Units/L (12-78); ALBUMIN 3.2 g/dL (3.4-5.0); ALKALINE PHOSPHATASE 97 Units/L (46-116); ASPARTATE AMINO TRANSFERASE 36 Units/L (15-37); BLOOD UREA NITROGEN 14 mg/dL (7-18); CALCIUM 8.8 mg/dL (8.5-10.1); CHLORIDE 103 mmol/L (98-107); COR CA(FOR HYPOALB) 9.4 mg/dL (8.5-10.1); CREATININE 0.65 mg/dL (0.55-1.02); SODIUM 141 mmol/L (136-145); TOTAL PROTEIN 6.9 g/dL (6.4-8.2); eGFR NON BLACK RACES > 60 (>60)
[2019-12-09] MEDS: NORCO 5/325 MG TAB PO PRN (07:11)
[2019-12-09] MEDS: COLCRYS TAB 0.6 MG PO SCH (08:39)
[2019-12-09] MEDS: COREG TAB 6.25 MG PO SCH (08:39)
[2019-12-09] MEDS: ELIQUIS PO SCH (08:39)
[2019-12-09] MEDS: PROTONIX TAB 40 MG PO SCH (08:39)
[2019-12-09] MEDS: COLACE CAP 100 MG PO SCH (08:40)
[2019-12-09] MEDS: MAG-OX TAB PO SCH (08:40)
[2019-12-09] MEDS: CYMBALTA PO SCH (08:40)
[2019-12-09] MEDS: LASIX IVP SCH (08:40)
[2019-12-09] MEDS: BRILINTA PO SCH (08:40)
[2019-12-09] MEDS: CLARITIN PO SCH (08:40)
[2019-12-09] MEDS: K-DUR TAB 20 MEQ PO SCH (08:40)
[2019-12-09] MEDS: FOLIC ACID 400 MCG PO SCH ×2 (08:41→08:46)
[2019-12-09] MEDS: RANEXA PO SCH (08:41)
[2019-12-09] MEDS: XANAX PO PRN (08:54)
[2019-12-09 13:21] VITALS: BP 111/65
== END 2019-12-09 13:15 | disposition home or self-care (01) ==
LOC: MED/SURG
PROVIDERS: ADMIT Internal Medicine; ATTEND Internal Medicine
DX: F41.8 Other specified anxiety disorders; R94.31 Abnormal electrocardiogram [ECG] [EKG]; I11.0 Hypertensive heart disease with heart failure; E78.49 Other hyperlipidemia; R60.0 Localized edema; Z79.899 Other long term (current) drug therapy; I50.9 Heart failure, unspecified; I25.10 Atherosclerotic heart disease of native coronary artery without angina pectoris; R06.02 Shortness of breath
CPT/HCPCS: 36415; 71010; 71045; 80053; 81001; 82550; 82553; 83735; 83880; 84484; 85025; 93005; 93306; 94760; 96374; A4216; A4222; G0378; J1940

== ENCOUNTER 2020-08-23 11:02 | Observation (INO) ==
[2020-08-23 20:31] LABS: BASOPHILS % (AUTO) 0.6 % (0.2-1.0); EOSINOPHILS # (AUTO) 0.3 x10^3/uL (0.0-0.2); EOSINOPHILS % (AUTO) 4.7 % (0.9-2.9); HEMATOCRIT 36.7 % (36.0-47.0); HEMOGLOBIN 12.1 g/dL (12.0-16.0); LYMPHOCYTES # (AUTO) 1.4 X10^3/uL (1.3-2.9); LYMPHOCYTES % (AUTO) 22.1 % (21.0-51.0); MEAN CORPUSCULAR HEMOGLOBIN 28.9 pg (27.0-34.0); MEAN CORPUSCULAR HGB CONC 33.1 g/dL (33.0-35.0); MEAN CORPUSCULAR VOLUME 87.2 fL (80.0-100.0); MEAN PLATELET VOLUME 8.4 fL (7.4-11.0); MONOCYTES # (AUTO) 0.6 x10^3/uL (0.3-0.8); MONOCYTES % (AUTO) 9.9 % (0.0-13.0); NEUTROPHILS # (AUTO) 3.9 x10^3/uL (2.2-4.8); NEUTROPHILS % (AUTO) 62.7 % (42.0-75.0); PLATELET COUNT 179 X10^3/uL (150.0-450.0); RED CELL DISTRIBUTION WIDTH 15.3 % (11.6-16.5); WHITE BLOOD COUNT 6.2 X10^3/uL (3.6-10.0)
[2020-08-23 20:47] LABS: ALANINE AMINOTRANSFERASE 30 Units/L (12-78); ALBUMIN 3.2 g/dL (3.4-5.0); ALKALINE PHOSPHATASE 144 Units/L (46-116); ASPARTATE AMINO TRANSFERASE 26 Units/L (15-37); BLOOD UREA NITROGEN 14 mg/dL (7-18); CARBON DIOXIDE 32.5 mmol/L (21-32); CHLORIDE 106 mmol/L (98-107); COR CA(FOR HYPOALB) 9.6 mg/dL (8.5-10.1); CREATININE 0.89 mg/dL (0.55-1.02); SODIUM 143 mmol/L (136-145); TOTAL PROTEIN 8.2 g/dL (6.4-8.2); eGFR NON BLACK RACES > 60 (>60)
[2020-08-23] MEDS ORDERED: STERILE WATER IRRIGATION IR ONE (21:11)
[2020-08-23] MEDS: LASIX IVP SCH ×3 (21:13→21:22)
[2020-08-23] MEDS: ROBITUSSIN DM PO SCH ×3 (21:13→21:23)
[2020-08-23] MEDS: VSL#3 PO SCH (21:21)
[2020-08-23] MEDS: DUONEB 0.5 MG/3 MG (3 mL) NEB SCH (21:55)
[2020-08-23] MEDS: PULMICORT NEB TX 0.5 MG NEB SCH (21:55)
[2020-08-24] MEDS: LEVAQUIN PREMIX IV 500 MG 500 MG/100 ML BAG IV SCH (02:53)
--- NOTE | 2020-08-24 05:08 | RAD ---
HISTORYPneumoniaSTUDYAP [id number]/2020FINDINGSStable heart size, upper normal, with sternal wires. There is mild pulmonary vascular prominence without evidence for segmental or lobar consolidation, pulmonary edema or pleural fluid.IMPRESSIONNo change, no acute disease.Electronically signed by: MARYAM TILLMAN (Aug 24, 2020 05:08:41)
[2020-08-24 09:38] LABS: CKMB % 1.6 % (<4); CREATINE KINASE 61 Units/L (26-192); CREATINE KINASE MB < 1.0 ng/mL (0-4.0); TROPONIN I < 0.02 ng/mL (0-1.5)
[2020-08-24 09:42] LABS: ABG BASE EXCESS 5.9 mmol/L (-2.0-2.0)
[2020-08-24 09:43] LABS: ABG ALLEN TEST POS; ABG HCO3 31.7 mmol/L (22-26)
[2020-08-24] MEDS: PULMICORT NEB TX 0.5 MG NEB SCH ×2 (10:00→20:27)
[2020-08-24] MEDS: DUONEB 0.5 MG/3 MG (3 mL) NEB SCH ×4 (10:00→20:27)
[2020-08-24] MEDS: LASIX IVP SCH (10:08)
[2020-08-24] MEDS: ROBITUSSIN DM PO SCH ×4 (10:08→21:26)
[2020-08-24] MEDS: VSL#3 PO SCH (10:09)
[2020-08-24] MEDS ORDERED: TUSSIONEX PENNKINETIC SUSP PO PRN (10:45)
[2020-08-24] MEDS: SOLU-Medrol 40 MG VIAL IVP SCH ×2 (12:01→21:26)
[2020-08-24] MEDS ORDERED: PHENERGAN TAB 25 MG PO PRN (13:28)
--- NOTE | 2020-08-24 13:31 | DR.H&P ---
H&P - History & Physical for Day of: H&P Date: 08/23/20 - Chief Complaint Chief Complaint: ccc, sob - History of Present Illness History of Present Illness: PT IS 49 WF ADMITTED WITH CCC, WHEEZING, CHF EXACERBATION. PT HAD NEGATIVE COVID. PT DENIES ANY FEVER, N/V. PT HAD PMH OF CAD, CHF, OA, HTN, CEDRIC. PT ADMITTED FOR TREATMENT OF ACUTE ILLNESS - Past Medical History Past Medical History: Angina, [place], Coronary Artery Disease, CHF - Past Surgical History Surgical History: CABG/Valve Surgery, Cholecystectomy, Hysterectomy - Family History Family Medical History: Diabetes Mellitus, [place], Coronary Artery Disease, Heart Failure, Hypertension - Social History Does patient currently use any type of tobacco product: No Have you used tobacco products in the last 12 months: No Type of Tobacco Use: None Does any household member use tobacco: No Alcohol Use: None Drug Use: None - Medications Home Medications: codeine Allergy (Verified 10/20/18 15:59) latex Allergy (Verified 08/22/20 13:14) CONTINUE taking the following medications aspirin [Aspirin Childrens] 81 mg PO DAILY 08/24/20 [History] potassium chloride 40 meq PO DAILY 08/24/20 [History] quetiapine [Seroquel XR] 150 mg PO QHS 08/24/20 [History] spironolactone 25 mg PO DAILY 08/24/20 [History] - Review of Systems Constitutional: Weakness Eyes: No Symptoms Reported ENT: No Symptoms Reported Respiratory: Shortness of Breath, SOB with Excertion, Wheezing Cardiovascular: No Symptoms Reported, Edema Gastrointestinal: No Symptoms Reported Genitourinary: No Symptoms Reported Musculoskeletal: Back Pain Skin: No Symptoms Reported Neurological: No Symptoms Reported - Physical Exam Vital Signs: Temperature 97.7 F Pulse Rate [Right Brachial] 110 Pulse Rate 80 Respiratory Rate 18 Blood Pressure [Right Arm] 94/42 Blood Pressure [Left Arm] 111/65 Blood Pressure 114/75 O2 Sat by Pulse Oximetry 99 Oriented: Normal Eyes: Normal Ear: Normal Nose: Normal Throat: Normal Respiratory: Wheezes Throughout, RLL Diminished, LLL Diminished Cardiovascular: Normal, Murmur, Edema : Normal Auscultation: Bowel Sounds: Normal Palpation: Normal Tenderness: Normal Skin: Decreased Turgur Musculoskeletal: Back:Thoracic, Back:Lumbar Psychiatric: Anxiety Affect: Anxious Speech Pattern: Clear, Appropriate - Assessment/Plan (1) Acute bronchitis Status: Acute Plan: ADMIT, IV ATBX,. RESUME HOME MEDICATION, I/OS, SUPPLEMENTAL O2. BP CONTROL, CE, CXR ON ADMISSION (2) CHF (congestive heart failure) Qualifiers: Heart failure type: unspecified Heart failure chronicity: unspecified Qualified Code(s): I50.9 - Heart failure, unspecified Status: Acute (3) URI (upper respiratory infection) Qualifiers: URI type: unspecified URI Qualified Code(s): J06.9 - Acute upper respiratory infection, unspecified Status: Acute (4) Hyperlipidemia Status: Chronic (5) Hypothyroidism Status: Chronic - Allergies Allergies/Adverse Reactions: Allergies Allergy/AdvReac Type Severity Reaction Status Date / Time codeine Allergy Verified 10/20/18 15:59 latex Allergy Verified 08/22/20 13:14
[2020-08-24 17:19] VITALS: BMI 38.7
[2020-08-24] MEDS: XANAX PO PRN (18:17)
[2020-08-24] MEDS: BRILINTA PO SCH (21:22)
[2020-08-24] MEDS: MAG-OX TAB PO SCH (21:24)
[2020-08-24] MEDS: RANEXA PO SCH (21:24)
[2020-08-24] MEDS: CRESTOR TAB 10 MG PO SCH (21:24)
[2020-08-24] MEDS: REQUIP PO SCH (21:25)
[2020-08-24] MEDS: COREG TAB 6.25 MG PO SCH (21:25)
[2020-08-24] MEDS: ELIQUIS PO SCH (21:26)
[2020-08-24] MEDS: LASIX PO SCH (21:27)
[2020-08-24] MEDS: MIRALAX POWDER (1 DOSE 17 G) PO SCH (21:27)
[2020-08-24] MEDS: NORCO 10/325 TAB PO PRN (23:00)
[2020-08-25] MEDS: LEVAQUIN PREMIX IV 500 MG 500 MG/100 ML BAG IV SCH
[2020-08-25] MEDS: NORCO 10/325 TAB PO PRN ×2 (05:16→21:47)
[2020-08-25 06:05] LABS: BASOPHILS % (AUTO) 0.1 % (0.2-1.0); HEMATOCRIT 37.3 % (36.0-47.0); HEMOGLOBIN 12.5 g/dL (12.0-16.0); LYMPHOCYTES # (AUTO) 0.8 X10^3/uL (1.3-2.9); LYMPHOCYTES % (AUTO) 8.9 % (21.0-51.0); MEAN CORPUSCULAR HGB CONC 33.5 g/dL (33.0-35.0); MEAN CORPUSCULAR VOLUME 86.6 fL (80.0-100.0); MEAN PLATELET VOLUME 8.9 fL (7.4-11.0); MONOCYTES # (AUTO) 0.3 x10^3/uL (0.3-0.8); NEUTROPHILS # (AUTO) 8.2 x10^3/uL (2.2-4.8); PLATELET COUNT 222 X10^3/uL (150.0-450.0); RED CELL DISTRIBUTION WIDTH 15.2 % (11.6-16.5); WHITE BLOOD COUNT 9.4 X10^3/uL (3.6-10.0)
[2020-08-25 06:23] LABS: ALANINE AMINOTRANSFERASE 29 Units/L (12-78); ALKALINE PHOSPHATASE 125 Units/L (46-116); ASPARTATE AMINO TRANSFERASE 19 Units/L (15-37); BLOOD UREA NITROGEN 18 mg/dL (7-18); CALCIUM 9.5 mg/dL (8.5-10.1); CARBON DIOXIDE 27.3 mmol/L (21-32); CHLORIDE 103 mmol/L (98-107); COR CA(FOR HYPOALB) 10.3 mg/dL (8.5-10.1); COR NA(FOR HYPERGLY) 141 mmol/L (136-145); CREATININE 0.96 mg/dL (0.55-1.02); SODIUM 140 mmol/L (136-145); TOTAL PROTEIN 8.1 g/dL (6.4-8.2); eGFR NON BLACK RACES > 60 (>60)
[2020-08-25] MEDS: ASPIRIN 81 MG CHEWTAB PO SCH (08:38)
[2020-08-25] MEDS: BRILINTA PO SCH ×2 (08:39→21:47)
[2020-08-25] MEDS: ALDACTONE TAB 25 MG PO SCH (08:39)
[2020-08-25] MEDS: CYMBALTA PO SCH (08:40)
[2020-08-25] MEDS: COREG TAB 6.25 MG PO SCH ×2 (08:40→21:47)
[2020-08-25] MEDS: ELIQUIS PO SCH ×2 (08:41→21:47)
[2020-08-25] MEDS: LASIX PO SCH ×2 (08:41→21:47)
[2020-08-25] MEDS: FOLIC ACID TAB 1 MG PO SCH (08:41)
[2020-08-25] MEDS: K-DUR TAB 20 MEQ PO SCH (08:42)
[2020-08-25] MEDS: MAG-OX TAB PO SCH ×2 (08:42→21:47)
[2020-08-25] MEDS: PROTONIX TAB 40 MG PO SCH (08:43)
[2020-08-25] MEDS: SOLU-Medrol 40 MG VIAL IVP SCH (08:43)
[2020-08-25] MEDS: ROBITUSSIN DM PO SCH ×4 (08:43→21:47)
[2020-08-25] MEDS: VSL#3 PO SCH (08:44)
[2020-08-25] MEDS: RANEXA PO SCH ×2 (08:46→21:47)
[2020-08-25] MEDS: PULMICORT NEB TX 0.5 MG NEB SCH ×2 (08:50→21:33)
[2020-08-25] MEDS: DUONEB 0.5 MG/3 MG (3 mL) NEB SCH ×4 (08:50→21:33)
[2020-08-25] MEDS ORDERED: AMBIEN PO PRN (12:35)
[2020-08-25] MEDS: MIRALAX POWDER (1 DOSE 17 G) PO SCH (21:47)
[2020-08-25] MEDS: REQUIP PO SCH (21:47)
[2020-08-25] MEDS: XANAX PO PRN (21:47)
[2020-08-25] MEDS: CRESTOR TAB 10 MG PO SCH (21:47)
[2020-08-26] MEDS: LEVAQUIN PREMIX IV 500 MG 500 MG/100 ML BAG IV SCH (00:20)
[2020-08-26 06:25] LABS: BASOPHILS % (AUTO) 0.2 % (0.2-1.0); HEMATOCRIT 34.8 % (36.0-47.0); HEMOGLOBIN 11.3 g/dL (12.0-16.0); LYMPHOCYTES # (AUTO) 1.2 X10^3/uL (1.3-2.9); LYMPHOCYTES % (AUTO) 9.2 % (21.0-51.0); MEAN CORPUSCULAR HEMOGLOBIN 28.5 pg (27.0-34.0); MEAN CORPUSCULAR HGB CONC 32.5 g/dL (33.0-35.0); MEAN CORPUSCULAR VOLUME 87.7 fL (80.0-100.0); MEAN PLATELET VOLUME 9.1 fL (7.4-11.0); MONOCYTES % (AUTO) 7.6 % (0.0-13.0); NEUTROPHILS # (AUTO) 10.7 x10^3/uL (2.2-4.8); PLATELET COUNT 233 X10^3/uL (150.0-450.0); RED BLOOD COUNT 3.96 X10^6/uL (3.5-5.4); RED CELL DISTRIBUTION WIDTH 15.5 % (11.6-16.5); WHITE BLOOD COUNT 12.9 X10^3/uL (3.6-10.0)
[2020-08-26 06:38] LABS: ALANINE AMINOTRANSFERASE 24 Units/L (12-78); ALBUMIN 2.9 g/dL (3.4-5.0); ALKALINE PHOSPHATASE 111 Units/L (46-116); ASPARTATE AMINO TRANSFERASE 13 Units/L (15-37); BLOOD UREA NITROGEN 25 mg/dL (7-18); CARBON DIOXIDE 33.2 mmol/L (21-32); CHLORIDE 103 mmol/L (98-107); COR CA(FOR HYPOALB) 9.9 mg/dL (8.5-10.1); COR NA(FOR HYPERGLY) 141 mmol/L (136-145); CREATININE 0.78 mg/dL (0.55-1.02); SODIUM 140 mmol/L (136-145); TOTAL PROTEIN 7.6 g/dL (6.4-8.2); eGFR NON BLACK RACES > 60 (>60)
[2020-08-26] MEDS: ASPIRIN 81 MG CHEWTAB PO SCH (08:29)
[2020-08-26] MEDS: ALDACTONE TAB 25 MG PO SCH (08:29)
[2020-08-26] MEDS: FOLIC ACID TAB 1 MG PO SCH (08:33)
[2020-08-26] MEDS: ROBITUSSIN DM PO SCH ×2 (08:34→13:34)
[2020-08-26] MEDS: COREG TAB 6.25 MG PO SCH (08:34)
[2020-08-26] MEDS: CYMBALTA PO SCH (08:35)
[2020-08-26] MEDS: ELIQUIS PO SCH (08:36)
[2020-08-26] MEDS: BRILINTA PO SCH (08:36)
[2020-08-26] MEDS: LASIX PO SCH (08:37)
[2020-08-26] MEDS: K-DUR TAB 20 MEQ PO SCH (08:37)
[2020-08-26] MEDS: MAG-OX TAB PO SCH (08:38)
[2020-08-26] MEDS: RANEXA PO SCH (08:38)
[2020-08-26] MEDS: PROTONIX TAB 40 MG PO SCH (08:38)
[2020-08-26] MEDS: VSL#3 PO SCH (08:39)
[2020-08-26] MEDS: DUONEB 0.5 MG/3 MG (3 mL) NEB SCH ×2 (08:40→13:36)
[2020-08-26] MEDS: PULMICORT NEB TX 0.5 MG NEB SCH (08:40)
[2020-08-26 16:10] VITALS: BP 132/64
--- NOTE | 2020-08-27 19:49 | PCM.PROG ---
Progress Note - Progress Note for Day of Date of Exam: 08/25/20 - Subjective Subjective: PATIENT IS A 49YO WF WHO IS ADMITTED DUE TO ACUTE BRONCHITIS. CONTINUES TO COMPLAIN OF MINIMAL SOB ON EXERTION. DENIES PRODUCTIVE COUGH. DENIES EDEMA OR CP. DOES GIVE HISTORY OF CARDIAC PROBLEMS. IS UPSET DUE TO DAUGHTER SENT TO [facility] WITH QUESTIONABLE NEUROLOGICAL PROBLEM. PATIENT DENIES ANY OTHER COMPLAINTS. - Past Medical Family Social History Past Med/Fam/Surg Hx: No changes since H&P Allergies: Allergies codeine Allergy (Verified 10/20/18 15:59) latex Allergy (Verified 08/22/20 13:14) - Review of Systems ROS: No change since H&P - Vital Signs and I&O's Vital Signs: Temperature 97.7 F Pulse Rate [Right Brachial] 84 Pulse Rate 62 Respiratory Rate 20 Blood Pressure [Right Arm] 118/61 Blood Pressure [Left Arm] 132/64 Blood Pressure 114/75 O2 Sat by Pulse Oximetry 98 Intake and Output: Intake & Output 08/24/20 08/25/20 08/26/20 08/27/20 23:59 23:59 23:59 23:59 Intake Total 940 / 940 2014 1000 / 1000 Output Total 300 / 300 900 / 900 Balance 640 / 640 2014 100 / 100 - Physical Exam Oriented: Normal Eyes: Normal Ear: Normal Nose: Normal Throat: Normal Respiratory: Normal Cardiovascular: Normal, Murmur : Normal Auscultation: Bowel Sounds: Normal Tenderness: Normal Skin: Decreased [place] Musculoskeletal: Back:Thoracic, Back:Lumbar Psychiatric: Anxiety Affect: Anxious Speech Pattern: Clear, Appropriate - Laboratory and Diagnostics Result Diagrams: 08/26/20 05:35 08/26/20 05:35 Labs: 08/24/20 11:43 Sputum - Expectorated Sputum Sputum Culture - Final 08/24/20 11:43 Sputum - Expectorated Sputum - Final 08/23/20 20:15 Blood Blood Culture - Preliminary 08/23/20 20:10 Blood Blood Culture - Preliminary Laboratory WBC 12.9 X10^3/uL (3.6-10.0) H 08/26/20 05:35 RBC 3.96 X10^6/uL (3.5-5.4) 08/26/20 05:35 Hgb 11.3 g/dL (12.0-16.0) L 08/26/20 05:35 Hct 34.8 % (36.0-47.0) L 08/26/20 05:35 MCV 87.7 fL (80.0-100.0) 08/26/20 05:35 MCH 28.5 pg (27.0-34.0) 08/26/20 05:35 MCHC 32.5 g/dL (33.0-35.0) L 08/26/20 05:35 RDW 15.5 % (11.6-16.5) 08/26/20 05:35 Plt Count 233 X10^3/uL (150.0-450.0) 08/26/20 05:35 MPV 9.1 fL (7.4-11.0) 08/26/20 05:35 Neut % (Auto) 83.0 % (42.0-75.0) H 08/26/20 05:35 Lymph % (Auto) 9.2 % (21.0-51.0) L 08/26/20 05:35 [place] % (Auto) 7.6 % (0.0-13.0) 08/26/20 05:35 Eos % (Auto) 0.0 % (0.9-2.9) L 08/26/20 05:35 Baso % (Auto) 0.2 % (0.2-1.0) 08/26/20 05:35 Neut # (Auto) 10.7 x10^3/uL (2.2-4.8) H 08/26/20 05:35 Lymph # (Auto) 1.2 X10^3/uL (1.3-2.9) L 08/26/20 05:35 [place] # (Auto) 1.0 x10^3/uL (0.3-0.8) H 08/26/20 05:35 Eos # (Auto) 0.0 x10^3/uL (0.0-0.2) 08/26/20 05:35 Baso # (Auto) 0.0 X10^3/uL (0.0-0.1) 08/26/20 05:35 Absolute Nucleated RBC 0.0 /100WBC 08/26/20 05:35 D-Dimer 0.39 ug/ml (0.0-0.57) 08/24/20 09:00 Sample Site Lr 08/24/20 09:37 ABG pH 7.410 (7.35-7.45) 08/24/20 09:37 ABG pCO2 50.0 mmHg (35.0-45.0) H 08/24/20 09:37 ABG pO2 89.0 mmHg (80.0-100.0) 08/24/20 09:37 ABG HCO3 31.7 mmol/L (22-26) H* 08/24/20 09:37 ABG O2 Saturation 97.0 % (90-100) 08/24/20 09:37 ABG Base Excess 5.9 mmol/L (-2.0-2.0) H 08/24/20 09:37 [place] Test Pos 08/24/20 09:37 A-a Gradient -2.0 mmHg 08/24/20 09:37 FiO2 21.0 08/24/20 09:37 Blood Gas Comments Nicola well cb 08/24/20 09:37 Sodium 140 mmol/L (136-145) 08/26/20 05:35 Corrected Sodium 141 mmol/L (136-145) 08/26/20 05:35 Potassium 4.3 mmol/L (3.5-5.1) 08/26/20 05:35 Chloride 103 mmol/L (98-107) 08/26/20 05:35 Carbon Dioxide 33.2 mmol/L (21-32) H 08/26/20 05:35 BUN 25 mg/dL (7-18) H 08/26/20 05:35 Creatinine 0.78 mg/dL (0.55-1.02) 08/26/20 05:35 Est GFR (MDRD) Af Amer > 60 (>60) 08/26/20 05:35 Est GFR (MDRD) Non-Af > 60 (>60) 08/26/20 05:35 Glucose 153 mg/dL (65-99) H 08/26/20 05:35 Calcium 9.0 mg/dL (8.5-10.1) 08/26/20 05:35 Corrected Calcium 9.9 mg/dL (8.5-10.1) 08/26/20 05:35 Magnesium 2.0 mg/dL (1.7-2.9) 08/25/20 05:07 Ferritin 63 ng/mL (8-252) 08/23/20 20:10 Total Bilirubin 0.30 mg/dL (0.2-1.0) 08/26/20 05:35 AST 13 Units/L (15-37) L 08/26/20 05:35 ALT 24 Units/L (12-78) 08/26/20 05:35 Alkaline Phosphatase 111 Units/L (46-116) 08/26/20 05:35 Creatine Kinase 61 Units/L (26-192) 08/24/20 09:00 CK-MB (CK-2) < 1.0 ng/mL (0-4.0) 08/24/20 09:00 CK/CKMB % Calc 1.6 % (<4) 08/24/20 09:00 Troponin I < 0.02 ng/mL (0-1.5) 08/24/20 09:00 C-Reactive Protein 76.60 mg/L (0-3.0) H 08/23/20 20:10 B-Natriuretic Peptide 49.1 pg/mL (0-79) 08/23/20 20:10 Total Protein 7.6 g/dL (6.4-8.2) 08/26/20 05:35 Albumin 2.9 g/dL (3.4-5.0) L 08/26/20 05:35 Globulin 4.7 g/dL (2.5-4.5) H 08/26/20 05:35 Albumin/Globulin Ratio 0.6 Ratio (1.1-2.1) L 08/26/20 05:35 SARS-CoV-2 (PCR) Negative (NEGATIVE) 08/24/20 21:15 Radiology Reviewed: Yes EKG Reviewed: Yes - Plan (1) Acute bronchitis Status: Acute Plan: IV ATBX,. RESUME HOME MEDICATION, I/OS, SUPPLEMENTAL O2. BP CONTROL, CE, CXR ON ADMISSION (2) CHF (congestive heart failure) Status: Acute Qualifiers: Heart failure type: unspecified Heart failure chronicity: unspecified Qualified Code(s): I50.9 - Heart failure, unspecified (3) Shortness of breath Status: Acute
--- NOTE | 2020-08-27 19:54 | PCM.DCPLAN ---
Discharge Plan - Discharge Plan Hospital Course: the patient is a 49-year-old white female to was admitted secondary to acute bronchitis. Chest x-rays are clear. Patient was treated with IV antibiotics. Patient did have improvement of symptoms. Patient does have history of cardiac problems. Patient did have improvement of symptoms and was discharged home with follow-up in the outpatient setting. Disposition: 01 HOME, SELF-CARE Condition: Stable Health Concerns: Post Hospitalization: new medications and changes needed to prevent readmission or further decline. Pt educated and given instructions on all concerns. Plan of Treatment: Continue with present treatment and follow up plan. Pt is to keep follow up appointment as instructed and take medications as ordered. Assessment: acute bronchitis chronic systolic heart failure Obstructive sleep apnea with CPAP Prescriptions: No Action alprazolam 1 tablet 1 tab PO TID PRN (Reason: Anxiety) aspirin [Aspirin Childrens] 81 mg Tablet,Chewable 81 mg PO DAILY Brilinta 90 MG tablet 60 mg PO BID carvedilol 6.25 mg Tablet 6.25 mg PO BID colchicine [Colcrys] 0.6 tablet 0.6 mg PO DAILY duloxetine 30 mg capsule,delayed release(DR/EC) 60 mg PO DAILY Eliquis 2.5 mg Tablet 5 mg PO BID folic acid 400 mcg Tablet 400 mcg PO DAILY furosemide 40 mg Tablet 20 mg PO BID hydrocodone-acetaminophen 10 MG/325 MG tablet 1 tab PO QID PRN (Reason: Pain) Qty: 120 RF: 0 magnesium oxide 400 MG tablet 400 mg PO BID Qty: 60 RF: 3 pantoprazole 40 MG tablet,delayed release (DR/EC) 1 tab PO DAILY potassium chloride 20 mEq tablet extended release 40 meq PO DAILY pregabalin [Lyrica] 100 capsule 1 cap PO TID PRN promethazine 25 MG tablet 1 tab PO QID PRN (Reason: Anxiety) quetiapine [Seroquel XR] 150 mg Tablet Extended Release 24 Hr 150 mg PO QHS ranolazine 500 mg tablet extended release 12 hr 500 mg PO BID ropinirole [Requip] 2 MG tablet 3 mg PO HS rosuvastatin [Crestor] 40 MG tablet 40 mg PO HS spironolactone 25 mg Tablet 25 mg PO DAILY zolpidem 10 mg tablet 10 mg PO HS PRN (Reason: Sleep) - Orders to Discharge Patient Discharge Orders: Discharge (Routine); Ordered 08/26/20 Ordered By: GORDON GONSALVES - Follow ups/Referrals Follow ups/Referrals: Juan Francisco Abel [Primary Care Provider] - 1 WEEK - Instructions Instructions: Shortness of Breath, Adult, [id number], Nonspecific Chest Pain, Electrocardiogram, Acute Bronchitis, Adult, Vtng-[id number], Edema, [id number] Forms: Excuse From Work or School, Precautions for COVID19, Patient Portal, Social Distancing Print Language: SERBIAN
== END 2020-08-26 17:05 | disposition home or self-care (01) ==
LOC: OBS → MED/SURG 18:33
PROVIDERS: ADMIT Internal Medicine; ATTEND Internal Medicine
DX: R06.02 Shortness of breath; E78.2 Mixed hyperlipidemia; R79.82 Elevated C-reactive protein (CRP); E03.8 Other specified hypothyroidism; J20.9 Acute bronchitis, unspecified; I50.22 Chronic systolic (congestive) heart failure; Z20.828 Contact with and (suspected) exposure to other viral communicable diseases; R94.31 Abnormal electrocardiogram [ECG] [EKG]; M79.7 Fibromyalgia; I11.0 Hypertensive heart disease with heart failure; I25.10 Atherosclerotic heart disease of native coronary artery without angina pectoris; M51.36 Other intervertebral disc degeneration, lumbar region; M19.90 Unspecified osteoarthritis, unspecified site; G47.39 Other sleep apnea; F41.8 Other specified anxiety disorders

== ENCOUNTER 2022-07-17 10:14 | Observation (INO) ==
[2022-07-17] MEDS ORDERED: ZOFRAN INJ 4 MG VIAL IVP PRN (11:52)
[2022-07-17] MEDS ORDERED: IMITREX INJ SC PRN (11:52)
[2022-07-17 12:21] VITALS: BMI 33.5
[2022-07-17 12:29] LABS: BASOPHILS # (AUTO) 0.1 X10^3/uL (0.0-0.1); BASOPHILS % (AUTO) 0.7 % (0.2-1.0); EOSINOPHILS # (AUTO) 0.2 x10^3/uL (0.0-0.2); EOSINOPHILS % (AUTO) 1.5 % (0.9-2.9); HEMATOCRIT 42.7 % (36.0-47.0); HEMOGLOBIN 14.5 g/dL (12.0-16.0); LYMPHOCYTES # (AUTO) 1.8 X10^3/uL (1.3-2.9); LYMPHOCYTES % (AUTO) 18.4 % (21.0-51.0); MEAN CORPUSCULAR HEMOGLOBIN 28.6 pg (27.0-34.0); MEAN CORPUSCULAR VOLUME 84.1 fL (80.0-100.0); MONOCYTES # (AUTO) 0.8 x10^3/uL (0.3-0.8); MONOCYTES % (AUTO) 7.6 % (0.0-13.0); NEUTROPHILS # (AUTO) 7.1 x10^3/uL (2.2-4.8); NEUTROPHILS % (AUTO) 71.8 % (42.0-75.0); RED BLOOD COUNT 5.08 X10^6/uL (3.5-5.4); RED CELL DISTRIBUTION WIDTH 14.1 % (11.6-16.5); WHITE BLOOD COUNT 9.9 X10^3/uL (3.6-10.0)
[2022-07-17 12:40] LABS: ALANINE AMINOTRANSFERASE 25 Units/L (12-78); ALBUMIN 3.7 g/dL (3.4-5.0); ALKALINE PHOSPHATASE 124 Units/L (46-116); ASPARTATE AMINO TRANSFERASE 23 Units/L (15-37); BLOOD UREA NITROGEN 15 mg/dL (7-18); CALCIUM 9.1 mg/dL (8.5-10.1); CARBON DIOXIDE 29.1 mmol/L (21-32); CHLORIDE 100 mmol/L (98-107); CREATININE 1.16 mg/dL (0.55-1.02); SODIUM 138 mmol/L (136-145); TOTAL PROTEIN 8.5 g/dL (6.4-8.2); eGFR NON BLACK RACES 52 (>60)
[2022-07-17] MEDS: TORADOL 30 MG VIAL IVP PRN (13:27)
[2022-07-17] MEDS: NS 1,000 ML IV 1,000 ML IV SCH (14:07)
--- NOTE | 2022-07-17 15:05 | CT ---
HISTORYINTRACTABLE MIGRAINESTUDYBRAIN W/O CONCOMPARISONJanuary 2020TECHNIQUEAxial non-contrast images of the head with coronal and sagittal reformats.Radiation dose: 1152.40 mGy-cm total DLPFINDINGSNo abnormal areas of acute attenuation in the brain parenchyma.[place]-white differentiation remains intact.No intracranial, extra-axial, fluid collection.No hemorrhage.No mass, mass effect or midline shift.No ventriculomegaly.No acute fracture.Sinuses are well aerated.Mastoid air cells are well aerated.IMPRESSIONNo acute intracranial abnormality identified.Electronically signed by: Noah Jose (Jul 17, 2022 15:02:57)
[2022-07-17] MEDS: PHENERGAN INJ 25 MG IM PRN ×2 (15:14→21:51)
[2022-07-17] MEDS ORDERED: K-RIDER 10 MEQ/NS 100 ML 10 MEQ/100 ML BAG IV PRN (16:12)
[2022-07-17] MEDS ORDERED: POTASSIUM CHLORIDE LIQ 20 MEQ UDC PO PRN (16:12)
[2022-07-17] MEDS ORDERED: POTASSIUM CHL 40 MEQ/NS 0.45% 500 ML IV PRN (16:12)
[2022-07-17] MEDS ORDERED: POTASSIUM CHL 60 MEQ/NS 0.45% 500 ML IV PRN (16:12)
[2022-07-17] MEDS ORDERED: KLOR-CON PO PRN (16:12)
[2022-07-17] MEDS ORDERED: MICRO K EXTEN CAP 10 MEQ PO PRN (16:12)
[2022-07-17] MEDS: K-DUR TAB 20 MEQ PO PRN (16:34)
[2022-07-17] MEDS ORDERED: AMBIEN PO PRN (21:09)
[2022-07-17] MEDS ORDERED: NORCO 5/325 MG TAB PO PRN (21:09)
[2022-07-17] MEDS ORDERED: AMBIEN PO ONE (21:35)
[2022-07-17] MEDS ORDERED: NORCO 5/325 MG TAB PO ONE (21:35)
[2022-07-18] MEDS: NS 1,000 ML IV 1,000 ML IV SCH ×4 (01:53→17:46)
[2022-07-18 05:11] LABS: BASOPHILS % (AUTO) 0.6 % (0.2-1.0); EOSINOPHILS # (AUTO) 0.2 x10^3/uL (0.0-0.2); EOSINOPHILS % (AUTO) 2.3 % (0.9-2.9); HEMATOCRIT 37.5 % (36.0-47.0); HEMOGLOBIN 12.8 g/dL (12.0-16.0); LYMPHOCYTES # (AUTO) 2.5 X10^3/uL (1.3-2.9); LYMPHOCYTES % (AUTO) 29.1 % (21.0-51.0); MEAN CORPUSCULAR HEMOGLOBIN 28.7 pg (27.0-34.0); MEAN CORPUSCULAR HGB CONC 34.1 g/dL (33.0-35.0); MEAN CORPUSCULAR VOLUME 84.2 fL (80.0-100.0); MEAN PLATELET VOLUME 7.9 fL (7.4-11.0); MONOCYTES # (AUTO) 0.6 x10^3/uL (0.3-0.8); MONOCYTES % (AUTO) 7.7 % (0.0-13.0); NEUTROPHILS # (AUTO) 5.1 x10^3/uL (2.2-4.8); NEUTROPHILS % (AUTO) 60.3 % (42.0-75.0); RED BLOOD COUNT 4.46 X10^6/uL (3.5-5.4); RED CELL DISTRIBUTION WIDTH 14.3 % (11.6-16.5); WHITE BLOOD COUNT 8.4 X10^3/uL (3.6-10.0)
[2022-07-18 05:32] LABS: ALANINE AMINOTRANSFERASE 20 Units/L (12-78); ALBUMIN 2.9 g/dL (3.4-5.0); ALKALINE PHOSPHATASE 111 Units/L (46-116); ASPARTATE AMINO TRANSFERASE 20 Units/L (15-37); BLOOD UREA NITROGEN 21 mg/dL (7-18); CARBON DIOXIDE 26.3 mmol/L (21-32); CHLORIDE 103 mmol/L (98-107); COR CA(FOR HYPOALB) 8.9 mg/dL (8.5-10.1); COR NA(FOR HYPERGLY) 138 mmol/L (136-145); CREATININE 1.17 mg/dL (0.55-1.02); SODIUM 137 mmol/L (136-145); TOTAL PROTEIN 6.7 g/dL (6.4-8.2); eGFR NON BLACK RACES 52 (>60)
[2022-07-18] MEDS: K-DUR TAB 20 MEQ PO PRN (05:49)
[2022-07-18] MEDS: PHENERGAN INJ 25 MG IM PRN (09:38)
[2022-07-18] MEDS: DEPAKOTE D.R. TAB PO SCH ×2 (11:26→20:22)
[2022-07-18] MEDS ORDERED: XANAX PO PRN (14:28)
[2022-07-18] MEDS ORDERED: LASIX PO PRN (14:28)
[2022-07-18] MEDS: REQUIP PO SCH ×2 (14:55→20:22)
[2022-07-18] MEDS: ELIQUIS PO SCH ×2 (14:55→20:24)
[2022-07-18] MEDS: NEURONTIN CAP 100 MG PO SCH ×2 (14:55→20:22)
[2022-07-18] MEDS: COREG TAB 6.25 MG PO SCH ×2 (14:56→20:26)
[2022-07-18] MEDS: ALDACTONE TAB 25 MG PO SCH (14:56)
[2022-07-18] MEDS: WELLBUTRIN XL 150 MG (DAILY) PO SCH (14:56)
[2022-07-18] MEDS: NORCO 10/325 TAB PO PRN (14:57)
[2022-07-18] MEDS: FLONASE NASAL SPRAY ENOSTRIL SCH (14:59)
[2022-07-18] MEDS: RANEXA PO SCH ×2 (15:03→20:23)
[2022-07-18] MEDS: ASPIRIN 81 MG CHEWTAB PO SCH (15:03)
[2022-07-18] MEDS: PROTONIX TAB 40 MG PO SCH (15:04)
[2022-07-18] MEDS: TORADOL 30 MG VIAL IVP PRN (16:36)
--- NOTE | 2022-07-18 18:43 | RAD ---
CHEST, 1 VIEWHISTORY:CHF, SOBStudy: Single view of the chest.Comparison:NoneFindings:Cardiomegaly and pulmonary vascular congestion. No focal consolidations, pleural effusions or pneumothorax. Osseous structures demonstrate no acute abnormality.IMPRESSION:1.Cardiomegaly and pulmonary vascular congestion.Electronically signed by: DALILA JARRELL (Jul 18, 2022 18:41:31)
[2022-07-18] MEDS: QUETIAPINE 150 MG PO SCH (20:20)
[2022-07-18] MEDS: CRESTOR TAB 10 MG PO SCH (20:23)
[2022-07-18] MEDS: MAG-OX TAB PO SCH (20:24)
[2022-07-18] MEDS: AMBIEN PO SCH (20:24)
[2022-07-18] MEDS: ZyrTEC TAB 10 MG PO SCH (20:24)
--- NOTE | 2022-07-18 20:28 | DR.H&P ---
H&P - History & Physical for Day of: H&P Date: 07/18/22 - Chief Complaint Chief Complaint: HEADACHE, DIZZINESS, NAUSEA, VOMITING - History of Present Illness History of Present Illness: PRESENTED TO THE OFFICE WITH COMPLAINTS OF INTRACTABLE HEADACHE, DIZZINESS, NAUSEA, AND VOMITING. SYMPTOMS STARTED APPROXIMATELY TWO WEEKS AGO. HEADACHE IS IN THE FRONTAL LOBE. IT IS DESCRIBED SEVERE AND ACHING. HEADACHES HAVE BEEN OCCURING DAILY AND LAST FOR SEVERAL HOURS AT A TIME. PAIN DOES GET SOME BETTER, BUT DOES NOT COMPLETELY GO AWAY. SHE HAS A PMH OF CHF, IN, OPEN HEART SURGERY X 2, AND MULTIPLE STENTS, AND CHOLECYSTECTOMY. DECISION WAS MADE TO ADMIT PATIENT TO THE HOSPITAL FOR FURTHER EVALUATION AND TREATMENT OF INTRACTABLE HEADACHE, DIZZINESS, NAUSEA, AND VOMITING. ON ARRIVAL, VITALS WERE: 98.2-76-20-96%-125/67. LABS WERE OBTAINED. WBC 9.9, RBC 5.08, HGB 14.5, HCT 42.7, SODIUM 138, POTASSIUM 3.5, CHLORIDE 100, BUN 15, CREATININE 1.16, GLUCOSE 105, CALCIUM 9.1, AST 23, ALT 25, ALK PHOS 124, TOTAL PROTEIN 8.5, ALBUMIN 3.7. A BRAIN CT WAS OBTAINED AND REVEALED: No acute intracranial abnormality identified. A CHEST XRAY WAS OBTAINED AND REVEALED: 1.Cardiomegaly and pulmonary vascular congestion. SHE WAS STARTED ON NORMAL SALINE AT 80 ML/HR, TORADOL 30MG IV Q6H PRN, ZOFRAN 4MG IV Q4 PRN NAUSEA, PHENERGAN 25MG IM Q6H PRN, DEPAKOTE 250MG PO BID, THE POTASSIUM AND MAGNESIUM PROTOCOLS, AND HER HOME MEDICATIONS WERE RESUMED. OTHERWISE, WE WILL FOLLOW-UP WITH AM LABS AND CONTINUE TO MONITOR. TIME SPENT ON CLINICAL ASSESSMENT, REVIEWING LABS AND IMAGING, DECISION MAKING, AND DOCUMENTATION GREATER THAN 75 MINUTES. - Past Medical History Past Medical History: Angina, [place], Coronary Artery Disease, Arthritis, CHF - Past Surgical History Surgical History: Cholecystectomy - Family History Family Medical History: Diabetes Mellitus, [place], Coronary Artery Disease, Heart Failure, Hypertension - Social History Does patient currently use any type of tobacco product: No Have you used tobacco products in the last 12 months: No Type of Tobacco Use: None Does any household member use tobacco: No Alcohol Use: None Drug Use: None - Medications Home Medications: codeine Allergy (Verified 12/06/20 16:48) latex Allergy (Verified 12/06/20 16:48) CONTINUE taking the following medications fluticasone propionate 50 mcg/actuation nasal spray,suspension 1 spray intranasal DAILY 07/17/22 [History] pantoprazole 40 mg tablet,delayed release 40 mg PO QDAY 07/17/22 [History] ropinirole 3 mg tablet 3 mg PO BID 07/17/22 [History] spironolactone 50 mg tablet 50 mg PO QDAY 07/17/22 [History] zolpidem 10 mg tablet 10 mg PO QPM 07/17/22 [History] - Review of Systems Constitutional: No Symptoms Reported Eyes: No Symptoms Reported ENT: No Symptoms Reported Respiratory: No Symptoms Reported Cardiovascular: Light [place]adedness Gastrointestinal: Nausea, Vomiting Genitourinary: No Symptoms Reported Musculoskeletal: No Symptoms Reported Skin: No Symptoms Reported Neurological: Other (HEADACHE) - Physical Exam Vital Signs: Temperature 98.1 F Pulse Rate [Left] 70 Respiratory Rate 18 Blood Pressure [Right Arm] 103/56 Blood Pressure [Left Arm] 116/78 Blood Pressure 117/70 O2 Sat by Pulse Oximetry 99 Oriented: Normal Eyes: Normal Ear: Normal Respiratory: Clear Throughout Cardiovascular: Normal : Normal Auscultation: Bowel Sounds: Normal Palpation: Normal Tenderness: Normal Skin: Normal Musculoskeletal: Normal Psychiatric: Normal Mood Description: Calm Affect: Normal Speech Pattern: Clear - Assessment/Plan (1) Intractable headache Qualifiers: Headache type: unspecified Headache chronicity pattern: acute headache Qualified Code(s): R51.9 - Headache, unspecified Status: Acute Plan: ADMIT, NORMAL SALINE AT 80 ML/HR, TORADOL 30MG IV Q6H PRN, ZOFRAN 4MG IV Q4 PRN NAUSEA, PHENERGAN 25MG IM Q6H PRN, DEPAKOTE 250MG PO BID, THE POTASSIUM AND MAGNESIUM PROTOCOLS, AND HER HOME MEDICATIONS WERE RESUMED. (2) Nausea & vomiting Status: Acute (3) Dizziness Status: Acute (4) CHF (congestive heart failure) Qualifiers: Heart failure type: unspecified Heart failure chronicity: unspecified Qualified Code(s): I50.9 - Heart failure, unspecified Status: Chronic (5) Hyperlipidemia Qualifiers: Hyperlipidemia type: mixed hyperlipidemia Qualified Code(s): E78.2 - Mixed hyperlipidemia Status: Chronic (6) CAD (coronary artery disease) Qualifiers: Coronary Disease-Associated Artery/Lesion type: [place] artery [place] vs. transplanted heart: [place] heart Associated angina: unspecified whether angina present Qualified Code(s): I25.10 - Atherosclerotic heart disease of [place] coronary artery without angina pectoris Status: Chronic - Allergies Allergies/Adverse Reactions: Allergies Allergy/AdvReac Type Severity Reaction Status Date / Time codeine Allergy Verified 12/06/20 16:48 latex Allergy Verified 12/06/20 16:48
[2022-07-19 05:08] LABS: BASOPHILS % (AUTO) 0.4 % (0.2-1.0); EOSINOPHILS # (AUTO) 0.2 x10^3/uL (0.0-0.2); EOSINOPHILS % (AUTO) 2.1 % (0.9-2.9); HEMATOCRIT 34.2 % (36.0-47.0); HEMOGLOBIN 11.6 g/dL (12.0-16.0); LYMPHOCYTES # (AUTO) 2.2 X10^3/uL (1.3-2.9); LYMPHOCYTES % (AUTO) 28.2 % (21.0-51.0); MEAN CORPUSCULAR HEMOGLOBIN 28.6 pg (27.0-34.0); MEAN CORPUSCULAR HGB CONC 33.9 g/dL (33.0-35.0); MEAN CORPUSCULAR VOLUME 84.5 fL (80.0-100.0); MEAN PLATELET VOLUME 8.1 fL (7.4-11.0); MONOCYTES # (AUTO) 0.6 x10^3/uL (0.3-0.8); MONOCYTES % (AUTO) 7.3 % (0.0-13.0); NEUTROPHILS # (AUTO) 4.9 x10^3/uL (2.2-4.8); RED BLOOD COUNT 4.05 X10^6/uL (3.5-5.4); RED CELL DISTRIBUTION WIDTH 14.3 % (11.6-16.5)
[2022-07-19 05:23] LABS: ALANINE AMINOTRANSFERASE 16 Units/L (12-78); ALBUMIN 2.7 g/dL (3.4-5.0); ALKALINE PHOSPHATASE 107 Units/L (46-116); ASPARTATE AMINO TRANSFERASE 13 Units/L (15-37); BLOOD UREA NITROGEN 15 mg/dL (7-18); CHLORIDE 106 mmol/L (98-107); CREATININE 0.99 mg/dL (0.55-1.02); SODIUM 139 mmol/L (136-145); TOTAL PROTEIN 6.1 g/dL (6.4-8.2); eGFR NON BLACK RACES > 60 (>60)
[2022-07-19] MEDS: NS 1,000 ML IV 1,000 ML IV SCH ×3 (07:14→21:30)
[2022-07-19] MEDS: FLONASE NASAL SPRAY ENOSTRIL SCH (07:59)
[2022-07-19] MEDS: NEURONTIN CAP 100 MG PO SCH ×2 (08:00→21:00)
[2022-07-19] MEDS: WELLBUTRIN XL 150 MG (DAILY) PO SCH (08:00)
[2022-07-19] MEDS: DEPAKOTE D.R. TAB PO SCH ×2 (08:00→21:00)
[2022-07-19] MEDS: COREG TAB 6.25 MG PO SCH ×2 (08:00→21:00)
[2022-07-19] MEDS: REQUIP PO SCH ×2 (08:00→21:00)
[2022-07-19] MEDS: MAG-OX TAB PO SCH ×2 (08:01→21:00)
[2022-07-19] MEDS: PROTONIX TAB 40 MG PO SCH (08:01)
[2022-07-19] MEDS: ASPIRIN 81 MG CHEWTAB PO SCH (08:01)
[2022-07-19] MEDS: ALDACTONE TAB 25 MG PO SCH (08:01)
[2022-07-19] MEDS: ELIQUIS PO SCH ×2 (08:01→21:00)
[2022-07-19] MEDS: RANEXA PO SCH ×2 (08:02→21:00)
[2022-07-19] MEDS: NORCO 10/325 TAB PO PRN ×3 (08:04→21:16)
--- NOTE | 2022-07-19 11:08 | PCM.PROG ---
Progress Note Progress Note for Day of Date of Exam: 07/19/22 Subjective Subjective: Patient seen at bedside, no acute events overnight. She is feeling better this morning. She states migraine is slightly better. She did eat a little bit. Denies N/V/D or abdominal pain. Denies SOB or chest pain. CT-head: no acute process CXR: pulmonary vascular congestion Plan: continue current treatment, advance diet as tolerated. Continue pain control for intractable migraine. Continue cardiac medications. Advised patient to ambulate as tolerated. Continue anti-emetics. Possible discharge tomorrow. Monitor AM labs. Past Medical Family Social History Allergies: Allergies codeine Allergy (Verified 12/06/20 16:48) latex Allergy (Verified 12/06/20 16:48) Vital Signs and I&O's Vital Signs: Temperature 97.6 F Pulse Rate [Left] 69 Respiratory Rate 18 Blood Pressure [Right Arm] 112/56 Blood Pressure [Left Arm] 116/78 Blood Pressure 117/70 O2 Sat by Pulse Oximetry 98 Intake and Output: Intake & Output 07/16/22 07/17/22 07/18/22 07/19/22 23:59 23:59 23:59 23:59 Intake Total 1489 / 1489 2945 / 2945 693 / 693 Output Total 0 / 0 Balance 1489 / 1489 2945 / 2945 693 / 693 Physical Exam Oriented: Normal Eyes: Normal Ear: Normal Cardiovascular: Normal Auscultation: Bowel Sounds: Normal Tenderness: Normal Skin: Normal Musculoskeletal: Normal Psychiatric: Normal Mood Description: Calm Affect: Normal Speech Pattern: Clear and Appropriate Laboratory and Diagnostics Result Diagrams: 07/19/22 04:30 07/19/22 04:30 Labs: Laboratory WBC 8.0 X10^3/uL (3.6-10.0) 07/19/22 04:30 RBC 4.05 X10^6/uL (3.5-5.4) 07/19/22 04:30 Hgb 11.6 g/dL (12.0-16.0) L 07/19/22 04:30 Hct 34.2 % (36.0-47.0) L 07/19/22 04:30 MCV 84.5 fL (80.0-100.0) 07/19/22 04:30 MCH 28.6 pg (27.0-34.0) 07/19/22 04:30 MCHC 33.9 g/dL (33.0-35.0) 07/19/22 04:30 RDW 14.3 % (11.6-16.5) 07/19/22 04:30 Plt Count 257 X10^3/uL (150.0-450.0) 07/19/22 04:30 MPV 8.1 fL (7.4-11.0) 07/19/22 04:30 Neut % (Auto) 62.0 % (42.0-75.0) 07/19/22 04:30 Lymph % (Auto) 28.2 % (21.0-51.0) 07/19/22 04:30 [place] % (Auto) 7.3 % (0.0-13.0) 07/19/22 04:30 Eos % (Auto) 2.1 % (0.9-2.9) 07/19/22 04:30 Baso % (Auto) 0.4 % (0.2-1.0) 07/19/22 04:30 Neut # (Auto) 4.9 x10^3/uL (2.2-4.8) H 07/19/22 04:30 Lymph # (Auto) 2.2 X10^3/uL (1.3-2.9) 07/19/22 04:30 [place] # (Auto) 0.6 x10^3/uL (0.3-0.8) 07/19/22 04:30 Eos # (Auto) 0.2 x10^3/uL (0.0-0.2) 07/19/22 04:30 Baso # (Auto) 0.0 X10^3/uL (0.0-0.1) 07/19/22 04:30 Absolute Nucleated RBC 0.0 /100WBC 07/19/22 04:30 Sodium 139 mmol/L (136-145) 07/19/22 04:30 Corrected Sodium TNP 07/19/22 04:30 Potassium 4.1 mmol/L (3.5-5.1) 07/19/22 04:30 Chloride 106 mmol/L (98-107) 07/19/22 04:30 Carbon Dioxide 29.0 mmol/L (21-32) 07/19/22 04:30 BUN 15 mg/dL (7-18) 07/19/22 04:30 Creatinine 0.99 mg/dL (0.55-1.02) 07/19/22 04:30 Est GFR (MDRD) Af Amer > 60 (>60) 07/19/22 04:30 Est GFR (MDRD) Non-Af > 60 (>60) 07/19/22 04:30 Glucose 104 mg/dL (65-99) H 07/19/22 04:30 Calcium 8.0 mg/dL (8.5-10.1) L 07/19/22 04:30 Corrected Calcium 9.0 mg/dL (8.5-10.1) 07/19/22 04:30 Magnesium 2.2 mg/dL (1.7-2.9) 07/17/22 12:13 Total Bilirubin 0.20 mg/dL (0.2-1.0) 07/19/22 04:30 AST 13 Units/L (15-37) L 07/19/22 04:30 ALT 16 Units/L (12-78) 07/19/22 04:30 Alkaline Phosphatase 107 Units/L (46-116) 07/19/22 04:30 B-Natriuretic Peptide 19.7 pg/mL (0-79) 07/18/22 04:49 Total Protein 6.1 g/dL (6.4-8.2) L 07/19/22 04:30 Albumin 2.7 g/dL (3.4-5.0) L 07/19/22 04:30 Globulin 3.4 g/dL (2.5-4.5) 07/19/22 04:30 Albumin/Globulin Ratio 0.8 Ratio (1.1-2.1) L 07/19/22 04:30 Plan (1) Intractable headache: Status: Acute Qualifiers: Headache chronicity pattern: acute headache Headache type: unspecified Qualified Code(s): R51.9 - Headache, unspecified (2) Nausea & vomiting: Status: Acute Qualifiers: Vomiting Intractability: unspecified (3) Dizziness: Status: Acute (4) CHF (congestive heart failure): Status: Chronic Qualifiers: Heart failure chronicity: unspecified Heart failure type: unspecified Qualified Code(s): I50.9 - Heart failure, unspecified (5) Hyperlipidemia: Status: Chronic Qualifiers: Hyperlipidemia type: mixed hyperlipidemia Qualified Code(s): E78.2 - Mixed hyperlipidemia (6) CAD (coronary artery disease): Status: Chronic Qualifiers: Associated angina: unspecified whether angina present Coronary Disease- Associated Artery/Lesion type: [place] artery [place] vs. transplanted heart: [place] heart Qualified Code(s): I25.10 - Atherosclerotic heart disease of [place] coronary artery without angina pectoris (7) Atrial fibrillation: Status: Acute
[2022-07-19] MEDS: ZyrTEC TAB 10 MG PO SCH (21:00)
[2022-07-19] MEDS: QUETIAPINE 150 MG PO SCH (21:00)
[2022-07-19] MEDS: CRESTOR TAB 10 MG PO SCH (21:00)
[2022-07-19] MEDS: AMBIEN PO SCH (21:00)
[2022-07-20 05:47] LABS: BASOPHILS # (AUTO) 0.1 X10^3/uL (0.0-0.1); EOSINOPHILS # (AUTO) 0.2 x10^3/uL (0.0-0.2); EOSINOPHILS % (AUTO) 2.4 % (0.9-2.9); HEMATOCRIT 35.7 % (36.0-47.0); HEMOGLOBIN 11.9 g/dL (12.0-16.0); LYMPHOCYTES # (AUTO) 2.3 X10^3/uL (1.3-2.9); LYMPHOCYTES % (AUTO) 29.1 % (21.0-51.0); MEAN CORPUSCULAR HEMOGLOBIN 28.6 pg (27.0-34.0); MEAN CORPUSCULAR HGB CONC 33.3 g/dL (33.0-35.0); MONOCYTES # (AUTO) 0.4 x10^3/uL (0.3-0.8); MONOCYTES % (AUTO) 5.6 % (0.0-13.0); NEUTROPHILS # (AUTO) 4.9 x10^3/uL (2.2-4.8); NEUTROPHILS % (AUTO) 61.9 % (42.0-75.0); RED BLOOD COUNT 4.15 X10^6/uL (3.5-5.4); RED CELL DISTRIBUTION WIDTH 14.4 % (11.6-16.5)
[2022-07-20 05:59] LABS: ALANINE AMINOTRANSFERASE 11 Units/L (12-78); ALBUMIN 2.7 g/dL (3.4-5.0); ALKALINE PHOSPHATASE 103 Units/L (46-116); ASPARTATE AMINO TRANSFERASE 10 Units/L (15-37); BLOOD UREA NITROGEN 12 mg/dL (7-18); CALCIUM 8.1 mg/dL (8.5-10.1); CARBON DIOXIDE 26.9 mmol/L (21-32); CHLORIDE 107 mmol/L (98-107); COR CA(FOR HYPOALB) 9.1 mg/dL (8.5-10.1); CREATININE 1.14 mg/dL (0.55-1.02); SODIUM 140 mmol/L (136-145); TOTAL PROTEIN 6.4 g/dL (6.4-8.2); eGFR NON BLACK RACES 53 (>60)
[2022-07-20] MEDS: WELLBUTRIN XL 150 MG (DAILY) PO SCH (08:20)
[2022-07-20] MEDS: REQUIP PO SCH ×2 (08:20→20:19)
[2022-07-20] MEDS: ELIQUIS PO SCH ×2 (08:20→20:20)
[2022-07-20] MEDS: ALDACTONE TAB 25 MG PO SCH (08:20)
[2022-07-20] MEDS: ASPIRIN 81 MG CHEWTAB PO SCH (08:20)
[2022-07-20] MEDS: COREG TAB 6.25 MG PO SCH ×2 (08:20→20:21)
[2022-07-20] MEDS: NEURONTIN CAP 100 MG PO SCH ×2 (08:21→20:20)
[2022-07-20] MEDS: PROTONIX TAB 40 MG PO SCH (08:21)
[2022-07-20] MEDS: DEPAKOTE D.R. TAB PO SCH (08:22)
[2022-07-20] MEDS: RANEXA PO SCH ×2 (08:22→20:19)
[2022-07-20] MEDS: MAG-OX TAB PO SCH ×2 (08:23→20:20)
[2022-07-20] MEDS: FLONASE NASAL SPRAY ENOSTRIL SCH (08:32)
--- NOTE | 2022-07-20 10:28 | PCM.PROG ---
Progress Note Progress Note for Day of Date of Exam: 07/20/22 Subjective Subjective: Patient seen at bedside, no acute events overnight. She is feeling better this morning. She states headache is better. She states Depakote does make her very sleep. Her BP is also low, patient states that's normal for her. She did eat a little bit. Denies N/V/D or abdominal pain. Denies SOB or chest pain. CT-head: no acute process CXR: pulmonary vascular congestion Plan: Will decrease Depakote to 125 mg BID, resume lasix. Patient takes lasix 60 mg daily, will resume 40 mg daily. Monitor patient's BP closely. Continue pain control for intractable migraine. Continue cardiac medications. Advised patient to ambulate as tolerated. Continue anti-emetics. Monitor AM labs. Past Medical Family Social History Allergies: Allergies codeine Allergy (Verified 12/06/20 16:48) latex Allergy (Verified 12/06/20 16:48) Vital Signs and I&O's Vital Signs: Temperature 98 F Pulse Rate [Right Brachial] 70 Pulse Rate [Left] 68 Respiratory Rate 20 Blood Pressure [Right Arm] 95/51 Blood Pressure [Left Arm] 116/78 Blood Pressure 117/70 O2 Sat by Pulse Oximetry 99 Intake and Output: Intake & Output 07/17/22 07/18/22 07/19/22 07/20/22 23:59 23:59 23:59 23:59 Intake Total 1489 / 1489 2945 / 2945 2290 / 2290 907 / 907 Output Total 0 / 0 Balance 1489 / 1489 2945 / 2945 2290 / 2290 907 / 907 Physical Exam Oriented: Normal Eyes: Normal Ear: Normal Cardiovascular: Normal Auscultation: Bowel Sounds: Normal Tenderness: Normal Skin: Normal Musculoskeletal: Normal Psychiatric: Normal Mood Description: Calm Affect: Normal Speech Pattern: Clear and Appropriate Laboratory and Diagnostics Result Diagrams: 07/20/22 05:33 07/20/22 05:33 Labs: Laboratory WBC 8.0 X10^3/uL (3.6-10.0) 07/20/22 05:33 RBC 4.15 X10^6/uL (3.5-5.4) 07/20/22 05:33 Hgb 11.9 g/dL (12.0-16.0) L 07/20/22 05:33 Hct 35.7 % (36.0-47.0) L 07/20/22 05:33 MCV 86.0 fL (80.0-100.0) 07/20/22 05:33 MCH 28.6 pg (27.0-34.0) 07/20/22 05:33 MCHC 33.3 g/dL (33.0-35.0) 07/20/22 05:33 RDW 14.4 % (11.6-16.5) 07/20/22 05:33 Plt Count 245 X10^3/uL (150.0-450.0) 07/20/22 05:33 MPV 8.0 fL (7.4-11.0) 07/20/22 05:33 Neut % (Auto) 61.9 % (42.0-75.0) 07/20/22 05:33 Lymph % (Auto) 29.1 % (21.0-51.0) 07/20/22 05:33 [place] % (Auto) 5.6 % (0.0-13.0) 07/20/22 05:33 Eos % (Auto) 2.4 % (0.9-2.9) 07/20/22 05:33 Baso % (Auto) 1.0 % (0.2-1.0) 07/20/22 05:33 Neut # (Auto) 4.9 x10^3/uL (2.2-4.8) H 07/20/22 05:33 Lymph # (Auto) 2.3 X10^3/uL (1.3-2.9) 07/20/22 05:33 [place] # (Auto) 0.4 x10^3/uL (0.3-0.8) 07/20/22 05:33 Eos # (Auto) 0.2 x10^3/uL (0.0-0.2) 07/20/22 05:33 Baso # (Auto) 0.1 X10^3/uL (0.0-0.1) 07/20/22 05:33 Absolute Nucleated RBC 0.0 /100WBC 07/20/22 05:33 Sodium 140 mmol/L (136-145) 07/20/22 05:33 Corrected Sodium TNP 07/20/22 05:33 Potassium 4.2 mmol/L (3.5-5.1) 07/20/22 05:33 Chloride 107 mmol/L (98-107) 07/20/22 05:33 Carbon Dioxide 26.9 mmol/L (21-32) 07/20/22 05:33 BUN 12 mg/dL (7-18) 07/20/22 05:33 Creatinine 1.14 mg/dL (0.55-1.02) H 07/20/22 05:33 Est GFR (MDRD) Af Amer > 60 (>60) 07/20/22 05:33 Est GFR (MDRD) Non-Af 53 (>60) L 07/20/22 05:33 Glucose 94 mg/dL (65-99) 07/20/22 05:33 Calcium 8.1 mg/dL (8.5-10.1) L 07/20/22 05:33 Corrected Calcium 9.1 mg/dL (8.5-10.1) 07/20/22 05:33 Magnesium 2.0 mg/dL (1.7-2.9) 07/20/22 05:33 Total Bilirubin 0.20 mg/dL (0.2-1.0) 07/20/22 05:33 AST 10 Units/L (15-37) L 07/20/22 05:33 ALT 11 Units/L (12-78) L 07/20/22 05:33 Alkaline Phosphatase 103 Units/L (46-116) 07/20/22 05:33 B-Natriuretic Peptide 19.7 pg/mL (0-79) 07/18/22 04:49 Total Protein 6.4 g/dL (6.4-8.2) 07/20/22 05:33 Albumin 2.7 g/dL (3.4-5.0) L 07/20/22 05:33 Globulin 3.7 g/dL (2.5-4.5) 07/20/22 05:33 Albumin/Globulin Ratio 0.7 Ratio (1.1-2.1) L 07/20/22 05:33 Plan (1) Intractable headache: Status: Acute Qualifiers: Headache chronicity pattern: acute headache Headache type: unspecified Qualified Code(s): R51.9 - Headache, unspecified (2) Nausea & vomiting: Status: Acute Qualifiers: Vomiting Intractability: unspecified (3) Dizziness: Status: Acute (4) CHF (congestive heart failure): Status: Chronic Qualifiers: Heart failure chronicity: unspecified Heart failure type: unspecified Qualified Code(s): I50.9 - Heart failure, unspecified (5) Hyperlipidemia: Status: Chronic Qualifiers: Hyperlipidemia type: mixed hyperlipidemia Qualified Code(s): E78.2 - Mixed hyperlipidemia (6) CAD (coronary artery disease): Status: Chronic Qualifiers: Associated angina: unspecified whether angina present Coronary Disease- Associated Artery/Lesion type: [place] artery [place] vs. transplanted heart: [place] heart Qualified Code(s): I25.10 - Atherosclerotic heart disease of [place] coronary artery without angina pectoris (7) Atrial fibrillation: Status: Acute
[2022-07-20] MEDS: NS 1,000 ML IV 1,000 ML IV SCH ×2 (15:29→21:05)
[2022-07-20] MEDS: AMBIEN PO SCH (20:18)
[2022-07-20] MEDS: ZyrTEC TAB 10 MG PO SCH (20:18)
[2022-07-20] MEDS: QUETIAPINE 150 MG PO SCH (20:20)
[2022-07-20] MEDS: DEPAKOTE SPRINKLE PO SCH (20:21)
[2022-07-20] MEDS: CRESTOR TAB 10 MG PO SCH (20:21)
[2022-07-20] MEDS: NORCO 10/325 TAB PO PRN (20:22)
[2022-07-20] MEDS ORDERED: DEPAKOTE SPRINKLE PO SCH (21:00)
[2022-07-21 06:00] LABS: BASOPHILS % (AUTO) 0.5 % (0.2-1.0); EOSINOPHILS # (AUTO) 0.2 x10^3/uL (0.0-0.2); EOSINOPHILS % (AUTO) 2.4 % (0.9-2.9); HEMATOCRIT 34.3 % (36.0-47.0); HEMOGLOBIN 11.6 g/dL (12.0-16.0); LYMPHOCYTES % (AUTO) 27.3 % (21.0-51.0); MEAN CORPUSCULAR HEMOGLOBIN 28.7 pg (27.0-34.0); MEAN CORPUSCULAR HGB CONC 33.7 g/dL (33.0-35.0); MEAN PLATELET VOLUME 8.1 fL (7.4-11.0); MONOCYTES # (AUTO) 0.5 x10^3/uL (0.3-0.8); NEUTROPHILS # (AUTO) 4.6 x10^3/uL (2.2-4.8); NEUTROPHILS % (AUTO) 62.8 % (42.0-75.0); RED BLOOD COUNT 4.03 X10^6/uL (3.5-5.4); RED CELL DISTRIBUTION WIDTH 13.9 % (11.6-16.5); WHITE BLOOD COUNT 7.3 X10^3/uL (3.6-10.0)
[2022-07-21 06:12] LABS: ALANINE AMINOTRANSFERASE 10 Units/L (12-78); ALBUMIN 2.6 g/dL (3.4-5.0); ALKALINE PHOSPHATASE 99 Units/L (46-116); ASPARTATE AMINO TRANSFERASE 10 Units/L (15-37); BLOOD UREA NITROGEN 13 mg/dL (7-18); CALCIUM 8.4 mg/dL (8.5-10.1); CARBON DIOXIDE 31.9 mmol/L (21-32); CHLORIDE 104 mmol/L (98-107); COR CA(FOR HYPOALB) 9.5 mg/dL (8.5-10.1); COR NA(FOR HYPERGLY) 140 mmol/L (136-145); SODIUM 140 mmol/L (136-145); TOTAL PROTEIN 6.2 g/dL (6.4-8.2); eGFR NON BLACK RACES > 60 (>60)
[2022-07-21] MEDS: WELLBUTRIN XL 150 MG (DAILY) PO SCH (08:08)
[2022-07-21] MEDS: REQUIP PO SCH (08:08)
[2022-07-21] MEDS: ELIQUIS PO SCH (08:08)
[2022-07-21] MEDS: ASPIRIN 81 MG CHEWTAB PO SCH (08:09)
[2022-07-21] MEDS: NEURONTIN CAP 100 MG PO SCH (08:09)
[2022-07-21] MEDS: COREG TAB 6.25 MG PO SCH (08:09)
[2022-07-21] MEDS: ALDACTONE TAB 25 MG PO SCH (08:09)
[2022-07-21] MEDS: MAG-OX TAB PO SCH (08:09)
[2022-07-21] MEDS: DEPAKOTE SPRINKLE PO SCH (08:10)
[2022-07-21] MEDS: RANEXA PO SCH (08:10)
[2022-07-21] MEDS: PROTONIX TAB 40 MG PO SCH (08:10)
[2022-07-21 08:32] VITALS: BP 110/56
[2022-07-21] MEDS: FLONASE NASAL SPRAY ENOSTRIL SCH (08:42)
[2022-07-21] MEDS ORDERED: DEPAKOTE SPRINKLE PO SCH ×2 (09:00)
[2022-07-21] MEDS ORDERED: LASIX PO SCH (09:00)
--- NOTE | 2022-07-21 10:52 | W.DIS.FURT ---
Summary of Discharge Discharge Summary of Date Date of Exam: 07/21/22 Admission Date Date of Admission: 07/17/22 Admission Diagnosis Patient Problems (Updated 07/24/22 @ 15:41 by Nelly Hsu) Nausea & vomiting (Acute) R11.2 CHF (congestive heart failure) (Chronic) I50.9 Intractable headache (Acute) R51.9 CAD (coronary artery disease) (Chronic) I25.10 Hyperlipidemia (Chronic) E78.5 Hospital Course: Ms Palomino is a 51y/o female with extensive cardiac hx including multiple CABG and PCI, HTN, CHF and migraine presented with headache, nausea, vomiting and dizziness. She states this episode of migraine has not subsided. In the ER, CT- head did not show any acute process. Patient was noted to have low potassium, other labs were normal. She was started on gentle hydration, anti-emetics and pain control. Home medications were resumed. She was also started on Depakote for migraine. Her labs were monitored daily and electrolytes replaced as needed. Her headache did improve and she was not having any more N/V. She was able to tolerate PO intake. She was ambulating in the room. She stated that current dose of Depakote was making her drowsy so it was decreased further. She was stable for discharge. She will follow up with PCP. Vital Signs: Vital Signs (72 hours) 07/18/22 14:57 07/18/22 16:32 07/18/22 16:36 Temperature Pulse Rate [Left] Pulse Rate [Right Brachial] Respiratory Rate 18 18 18 Blood Pressure [Right Arm] O2 Sat by Pulse Oximetry Oxygen Delivery Method 07/18/22 12:00 07/18/22 16:00 07/18/22 17:06 Temperature 97.4 F L 98.1 F Pulse Rate [Left] 68 70 Pulse Rate [Right Brachial] Respiratory Rate 18 18 18 Blood Pressure [Right Arm] 119/57 103/56 O2 Sat by Pulse Oximetry 98 99 Oxygen Delivery Method Room Air Room Air 07/18/22 20:00 07/18/22 19:00 07/18/22 23:54 Temperature 98.1 F 97.8 F Pulse Rate [Left] 62 67 Pulse Rate [Right Brachial] Respiratory Rate 20 18 Blood Pressure [Right Arm] 95/52 96/56 O2 Sat by Pulse Oximetry 96 97 Oxygen Delivery Method Room Air Room Air Room Air 07/19/22 04:00 07/19/22 07:49 07/19/22 08:04 Temperature 97.9 F Pulse Rate [Left] 68 Pulse Rate [Right Brachial] Respiratory Rate 18 18 Blood Pressure [Right Arm] 90/54 O2 Sat by Pulse Oximetry 98 Oxygen Delivery Method Room Air Room Air 07/19/22 08:00 07/19/22 09:04 07/19/22 12:05 Temperature 97.6 F 97.7 F Pulse Rate [Left] 69 59 L Pulse Rate [Right Brachial] Respiratory Rate 20 18 20 Blood Pressure [Right Arm] 112/56 114/58 O2 Sat by Pulse Oximetry 98 98 Oxygen Delivery Method Room Air Room Air 07/19/22 16:19 07/19/22 20:00 07/19/22 21:07 Temperature 97.7 F 97.8 F Pulse Rate [Left] 61 64 Pulse Rate [Right Brachial] Respiratory Rate 20 18 20 Blood Pressure [Right Arm] 105/55 99/53 O2 Sat by Pulse Oximetry 98 98 Oxygen Delivery Method Room Air Room Air 07/19/22 22:07 07/20/22 00:00 07/20/22 04:00 Temperature 98.2 F 98.4 F Pulse Rate [Left] 62 68 Pulse Rate [Right Brachial] Respiratory Rate 18 18 18 Blood Pressure [Right Arm] 103/54 92/50 O2 Sat by Pulse Oximetry 96 97 Oxygen Delivery Method Room Air Room Air 07/20/22 08:00 07/20/22 07:00 07/20/22 12:00 Temperature 98 F 98 F Pulse Rate [Left] Pulse Rate [Right Brachial] 70 66 Respiratory Rate 20 20 Blood Pressure [Right Arm] 95/51 127/63 O2 Sat by Pulse Oximetry 99 98 Oxygen Delivery Method Room Air 07/20/22 07:00 07/20/22 16:00 07/20/22 19:58 Temperature 97.9 F 98.5 F Pulse Rate [Left] Pulse Rate [Right Brachial] 64 64 Respiratory Rate 20 20 20 Blood Pressure [Right Arm] 94/50 99/57 O2 Sat by Pulse Oximetry 98 95 Oxygen Delivery Method 07/20/22 20:22 07/20/22 19:00 07/20/22 21:22 Temperature Pulse Rate [Left] Pulse Rate [Right Brachial] Respiratory Rate 20 21 Blood Pressure [Right Arm] O2 Sat by Pulse Oximetry Oxygen Delivery Method Room Air 07/21/22 00:00 07/21/22 04:00 07/21/22 07:00 Temperature 98.3 F 97.7 F Pulse Rate [Left] Pulse Rate [Right Brachial] 61 62 Respiratory Rate 20 20 Blood Pressure [Right Arm] 97/51 99/54 O2 Sat by Pulse Oximetry 97 96 Oxygen Delivery Method Room Air Room Air Room Air 07/21/22 08:00 Temperature 97.8 F Pulse Rate [Left] Pulse Rate [Right Brachial] 66 Respiratory Rate 20 Blood Pressure [Right Arm] 110/56 O2 Sat by Pulse Oximetry 98 Oxygen Delivery Method Room Air Labs: Laboratory Last Values WBC 7.3 X10^3/uL (3.6-10.0) 07/21/22 05:24 RBC 4.03 X10^6/uL (3.5-5.4) 07/21/22 05:24 Hgb 11.6 g/dL (12.0-16.0) L 07/21/22 05:24 Hct 34.3 % (36.0-47.0) L 07/21/22 05:24 MCV 85.0 fL (80.0-100.0) 07/21/22 05:24 MCH 28.7 pg (27.0-34.0) 07/21/22 05:24 MCHC 33.7 g/dL (33.0-35.0) 07/21/22 05:24 RDW 13.9 % (11.6-16.5) 07/21/22 05:24 Plt Count 255 X10^3/uL (150.0-450.0) 07/21/22 05:24 MPV 8.1 fL (7.4-11.0) 07/21/22 05:24 Neut % (Auto) 62.8 % (42.0-75.0) 07/21/22 05:24 Lymph % (Auto) 27.3 % (21.0-51.0) 07/21/22 05:24 [place] % (Auto) 7.0 % (0.0-13.0) 07/21/22 05:24 Eos % (Auto) 2.4 % (0.9-2.9) 07/21/22 05:24 Baso % (Auto) 0.5 % (0.2-1.0) 07/21/22 05:24 Neut # (Auto) 4.6 x10^3/uL (2.2-4.8) 07/21/22 05:24 Lymph # (Auto) 2.0 X10^3/uL (1.3-2.9) 07/21/22 05:24 [place] # (Auto) 0.5 x10^3/uL (0.3-0.8) 07/21/22 05:24 Eos # (Auto) 0.2 x10^3/uL (0.0-0.2) 07/21/22 05:24 Baso # (Auto) 0.0 X10^3/uL (0.0-0.1) 07/21/22 05:24 Absolute Nucleated RBC 0.0 /100WBC 07/21/22 05:24 Sodium 140 mmol/L (136-145) 07/21/22 05:24 Corrected Sodium 140 mmol/L (136-145) 07/21/22 05:24 Potassium 3.9 mmol/L (3.5-5.1) 07/21/22 05:24 Chloride 104 mmol/L (98-107) 07/21/22 05:24 Carbon Dioxide 31.9 mmol/L (21-32) 07/21/22 05:24 BUN 13 mg/dL (7-18) 07/21/22 05:24 Creatinine 1.00 mg/dL (0.55-1.02) 07/21/22 05:24 Est GFR (MDRD) Af Amer > 60 (>60) 07/21/22 05:24 Est GFR (MDRD) Non-Af > 60 (>60) 07/21/22 05:24 Glucose 119 mg/dL (65-99) H 07/21/22 05:24 Calcium 8.4 mg/dL (8.5-10.1) L 07/21/22 05:24 Corrected Calcium 9.5 mg/dL (8.5-10.1) 07/21/22 05:24 Magnesium 2.0 mg/dL (1.7-2.9) 07/20/22 05:33 Total Bilirubin 0.20 mg/dL (0.2-1.0) 07/21/22 05:24 AST 10 Units/L (15-37) L 07/21/22 05:24 ALT 10 Units/L (12-78) L 07/21/22 05:24 Alkaline Phosphatase 99 Units/L (46-116) 07/21/22 05:24 B-Natriuretic Peptide 19.7 pg/mL (0-79) 07/18/22 04:49 Total Protein 6.2 g/dL (6.4-8.2) L 07/21/22 05:24 Albumin 2.6 g/dL (3.4-5.0) L 07/21/22 05:24 Globulin 3.6 g/dL (2.5-4.5) 07/21/22 05:24 Albumin/Globulin Ratio 0.7 Ratio (1.1-2.1) L 07/21/22 05:24 Reason For Visit: INTRACTABLE MIGRAINE, N/V Discharge Diagnosis All Active Problems (Updated 07/24/22 @ 15:41 by Nelly Hsu) Atrial fibrillation (Chronic) Generalized pain (Chronic) Nausea & vomiting (Acute) CHF (congestive heart failure) (Chronic) Chronic pulmonary congestion (Chronic) Chronic hypokalemia (Acute) Dizziness (Acute) Migraine headache with aura (Chronic) Intractable headache (Acute) CAD (coronary artery disease) (Chronic) Hypothyroidism (Chronic) Depression (Chronic) Insomnia (Chronic) Hyperlipidemia (Chronic) Plan of Treatment: Continue with present treatment and follow up plan. Pt is to keep follow up appointment as instructed and take medications as ordered. Discharge Medications Discharge Medications: codeine Allergy (Verified 12/06/20 16:48) latex Allergy (Verified 12/06/20 16:48) CONTINUE taking the following medications fluticasone propionate 50 mcg/actuation nasal spray,suspension 1 spray in tranasal DAILY 07/17/22 [History] pantoprazole 40 mg tablet,delayed release 40 mg PO QDAY 07/17/22 [History] ropinirole 3 mg tablet 3 mg PO BID 07/17/22 [History] spironolactone 50 mg tablet 50 mg PO QDAY 07/17/22 [History] zolpidem 10 mg tablet 10 mg PO QPM 07/17/22 [History] New Prescriptions divalproex 125 mg capsule,delayed release sprinkle 125 mg PO BID 30 days #60 caps 07/21/22 [Rx] furosemide 40 mg tablet 40 mg PO DAILY 30 days #30 tabs 07/21/22 [Rx] Discharge Disposition Discharge Disposition: Home Discharge Condition: Stable Discharge Plan Discharge Plan Hospital Course: Ms Palomino is a 51y/o female with extensive cardiac hx including multiple CABG and PCI, HTN, CHF and migraine presented with headache, nausea, vomiting and dizziness. She states this episode of migraine has not subsided. In the ER, CT- head did not show any acute process. Patient was noted to have low potassium, other labs were normal. She was started on gentle hydration, anti-emetics and pain control. Home medications were resumed. She was also started on Depakote for migraine. Her labs were monitored daily and electrolytes replaced as needed. Her headache did improve and she was not having any more N/V. She was able to tolerate PO intake. She was ambulating in the room. She stated that current dose of Depakote was making her drowsy so it was decreased further. She was stable for discharge. She will follow up with PCP. Patient Disposition: HOME, SELF-CARE Condition: Stable Health Concerns: Post Hospitalization: new medications and changes needed to prevent readmission or further decline. Pt educated and given instructions on all concerns. Plan of Treatment: Continue with present treatment and follow up plan. Pt is to keep follow up appointment as instructed and take medications as ordered. Prescription drug monitoring program results: PDMP reviewed and no concerns i dentified Prescriptions: New divalproex 125 mg Capsule, Delayed Rel Sprinkle 125 mg PO BID 30 Days Qty: 60 1RF Continued pantoprazole 40 MG tablet,delayed release (DR/EC) 40 mg PO DAILY magnesium oxide 400 MG tablet 400 mg PO BID Qty: 60 3RF rosuvastatin [Crestor] 40 MG tablet 40 mg PO HS promethazine 25 MG tablet 25 mg PO QID PRN (Reason: Anxiety) hydrocodone-acetaminophen 10 MG/325 MG tablet 1 tab PO QID PRN (Reason: Pain) Qty: 120 0RF Rx Instructions: TAKE ONE TABLET BY MOUTH FOUR TIMES A DAY NEEDED FOR PAIN FOR 30 DAYS carvedilol 6.25 mg Tablet 6.25 mg PO BID Brilinta 60 mg tablet 60 mg PO BID cetirizine 10 mg tablet 10 mg PO QPM gabapentin 100 mg capsule 100 mg PO BID bupropion HCl 150 mg tablet extended release 24 hr 150 mg PO QAM Eliquis 5 mg tablet 5 mg PO BID ranolazine 500 mg tablet extended release 12 hr 500 mg PO BID alprazolam 1 tablet 1 mg PO TID PRN (Reason: Anxiety) Rx Instructions: TAKE ONE TABLET THREE TIMES A DAY aspirin [Aspirin Childrens] 81 mg Tablet,Chewable 81 mg PO DAILY quetiapine [Seroquel XR] 150 mg Tablet Extended Release 24 Hr 150 mg PO QHS fluticasone propionate 50 mcg/actuation spray,suspension 1 spray INTRANASAL DAILY ropinirole 3 mg tablet 3 mg PO BID pantoprazole 40 mg tablet,delayed release (DR/EC) 40 mg PO QDAY spironolactone 50 mg tablet 50 mg PO QDAY zolpidem 10 mg tablet 10 mg PO QPM Changed furosemide 40 mg Tablet 40 mg PO DAILY 30 Days Qty: 30 0RF Orders to Discharge Patient Discharge Orders: Discharge (Routine); Ordered 07/21/22 Ordered By: Nelly Hsu Follow ups/Referrals Follow ups/Referrals: Juan Francisco Abel [Primary Care Provider] - 1 WEEK Instructions Stand Alone Forms: Excuse From Work or School, Precautions for COVID19, [facility], Patient Portal, Social Distancing
== END 2022-07-21 11:30 | disposition home or self-care (01) ==
LOC: MED/SURG
PROVIDERS: ADMIT Internal Medicine; ATTEND Internal Medicine
DX: R42 Dizziness and giddiness; G43.819 Other migraine, intractable, without status migrainosus; I48.91 Unspecified atrial fibrillation; E78.2 Mixed hyperlipidemia; I25.10 Atherosclerotic heart disease of native coronary artery without angina pectoris; R09.89 Other specified symptoms and signs involving the circulatory and respiratory systems; I50.9 Heart failure, unspecified; R11.2 Nausea with vomiting, unspecified

== ENCOUNTER 2024-02-26 12:40 | Observation (INO) ==
--- NOTE | 2024-02-26 13:57 | EKG ---
Test Reason : sob Blood Pressure : */* mmHG Vent. Rate : 74 BPM Atrial Rate : 74 BPM P-R Int : 150 ms QRS Dur : 104 ms QT Int : 406 ms P-R-T Axes : 27 32 190 degrees QTc Int : 450 ms Normal sinus rhythm Anterior infarct , age undetermined Abnormal ECG No previous ECGs available Confirmed by Shun Solitario MD ([id number]) on 02/29/2024 7:45:59 AM Referred By: Confirmed By: Shun Solitario MD
[2024-02-26 14:13] LABS: BASOPHILS # (AUTO) 0.1 X10^3/uL (0.0-0.1); BASOPHILS % (AUTO) 0.8 % (0.2-1.0); EOSINOPHILS # (AUTO) 0.1 x10^3/uL (0.0-0.2); EOSINOPHILS % (AUTO) 1.2 % (0.9-2.9); HEMATOCRIT 37.3 % (36.0-47.0); HEMOGLOBIN 12.7 g/dL (12.0-16.0); LYMPHOCYTES # (AUTO) 1.4 X10^3/uL (1.3-2.9); LYMPHOCYTES % (AUTO) 18.5 % (21.0-51.0); MEAN CORPUSCULAR HEMOGLOBIN 29.8 pg (27.0-34.0); MEAN CORPUSCULAR VOLUME 87.7 fL (80.0-100.0); MEAN PLATELET VOLUME 8.1 fL (7.4-11.0); MONOCYTES # (AUTO) 0.5 x10^3/uL (0.3-0.8); MONOCYTES % (AUTO) 6.4 % (0.0-13.0); NEUTROPHILS # (AUTO) 5.7 x10^3/uL (2.2-4.8); NEUTROPHILS % (AUTO) 73.1 % (42.0-75.0); PLATELET COUNT 195 X10^3/uL (150.0-450.0); RED BLOOD COUNT 4.25 X10^6/uL (3.5-5.4); RED CELL DISTRIBUTION WIDTH 14.2 % (11.6-16.5); WHITE BLOOD COUNT 7.8 X10^3/uL (3.6-10.0)
[2024-02-26 14:28] LABS: ALANINE AMINOTRANSFERASE 299 Units/L (12-78); ALBUMIN 2.6 g/dL (3.4-5.0); ALKALINE PHOSPHATASE 91 Units/L (46-116); ASPARTATE AMINO TRANSFERASE 430 Units/L (15-37); BLOOD UREA NITROGEN 7 mg/dL (7-18); CALCIUM 8.6 mg/dL (8.5-10.1); CARBON DIOXIDE 29.6 mmol/L (21-32); CHLORIDE 105 mmol/L (98-107); COR CA(FOR HYPOALB) 9.7 mg/dL (8.5-10.1); CREATININE 0.73 mg/dL (0.55-1.02); GLUCOSE 86 mg/dL (65-99); POTASSIUM 3.2 mmol/L (3.5-5.1); SODIUM 142 mmol/L (136-145); TOTAL PROTEIN 6.6 g/dL (6.4-8.2); eGFR NON BLACK RACES > 60 (>60)
[2024-02-26 14:31] VITALS: BMI 30.6
[2024-02-26 14:56] LABS: BILIRUBIN,URINE NEGATIVE (NEGATIVE); BLOOD/HEMOGLOBIN,URINE 5+ (NEGATIVE); GLUCOSE, URINE 4+ (NEGATIVE); KETONES,URINE NEGATIVE (NEGATIVE); LEUKOCYTE ESTERASE ,URINE 3+ (NEGATIVE); NITRITES,URINE NEGATIVE (NEGATIVE); PROTEIN,URINE 3+ (NEGATIVE); UROBILINOGEN,URINE NORMAL (NORMAL)
[2024-02-26 14:59] LABS: COLOR,URINE DARK YELLOW (YELLOW)
[2024-02-26 15:00] LABS: APPEARANCE,URINE CLOUDY (CLEAR)
--- NOTE | 2024-02-26 15:01 | RAD ---
EXAM:CHEST, 1 VIEWHISTORY:SOB;COMPARISON:Prior study or studies were utilized for comparison during interpretation with the most relevant dated 07/18/2022TECHNIQUE:CHEST, 1 VIEWFINDINGS:Chest:Lines and tubes: Cardiac leads overlie the chest.Mediastinum: Median sternotomy wires are present. Cardiac shadow is normal in size.Pulmonary vessels: No pulmonary vascular congestion.Lung armando: No suspicious airspace opacity.Pleura: No effusion. No pneumothorax.Bones and soft tissues: No acute osseous or soft tissue abnormality.IMPRESSION:1. No acute cardiopulmonary abnormalityTHIS IS AN ELECTRONICALLY VERIFIED FINAL REPORT02/26/2024 2:57 PM - Electronically signed by Foreign Larkin MD
[2024-02-26 15:08] LABS: BACTERIA,URINE 4+ /HPF (NEGATIVE); CALCIUM OXALATE CRYSTALS,UR RARE /HPF (NEGATIVE); RBC,URINE 0-2 /HPF (0-3); SQUAMOUS EPITHELIAL CELL,UR RARE /HPF (NEGATIVE)
[2024-02-26] MEDS: K-DUR TAB 20 MEQ PO SCH (17:10)
[2024-02-26] MEDS: NS 1,000 ML IV 1,000 ML IV SCH (17:11)
[2024-02-26] MEDS: ZOSYN VIAL 3.375 GRAMS 3.375 G in NS 100 ML IV 100 ML IV SCH (17:11)
[2024-02-26] MEDS: NS 250 ML IV 25 ML IV PRN (17:11)
[2024-02-26] MEDS: AMBIEN PO SCH (20:36)
[2024-02-26] MEDS: DEPAKOTE SPRINKLE PO SCH (20:36)
[2024-02-26] MEDS: CRESTOR TAB 10 MG PO SCH (20:36)
[2024-02-26] MEDS: ELIQUIS PO SCH (20:36)
[2024-02-26] MEDS: NORCO 10/325 TAB PO PRN (23:05)
[2024-02-27 05:31] LABS: BASOPHILS % (AUTO) 0.3 % (0.2-1.0); EOSINOPHILS # (AUTO) 0.1 x10^3/uL (0.0-0.2); EOSINOPHILS % (AUTO) 1.8 % (0.9-2.9); HEMATOCRIT 32.9 % (36.0-47.0); HEMOGLOBIN 11.2 g/dL (12.0-16.0); LYMPHOCYTES # (AUTO) 1.3 X10^3/uL (1.3-2.9); LYMPHOCYTES % (AUTO) 18.9 % (21.0-51.0); MEAN CORPUSCULAR HEMOGLOBIN 29.9 pg (27.0-34.0); MEAN CORPUSCULAR HGB CONC 33.9 g/dL (33.0-35.0); MEAN CORPUSCULAR VOLUME 88.2 fL (80.0-100.0); MEAN PLATELET VOLUME 8.8 fL (7.4-11.0); MONOCYTES # (AUTO) 0.6 x10^3/uL (0.3-0.8); MONOCYTES % (AUTO) 9.2 % (0.0-13.0); NEUTROPHILS # (AUTO) 4.8 x10^3/uL (2.2-4.8); NEUTROPHILS % (AUTO) 69.8 % (42.0-75.0); PLATELET COUNT 208 X10^3/uL (150.0-450.0); RED BLOOD COUNT 3.73 X10^6/uL (3.5-5.4); RED CELL DISTRIBUTION WIDTH 14.5 % (11.6-16.5); WHITE BLOOD COUNT 6.9 X10^3/uL (3.6-10.0)
[2024-02-27 05:53] LABS: ALANINE AMINOTRANSFERASE 238 Units/L (12-78); ALBUMIN 2.1 g/dL (3.4-5.0); ALKALINE PHOSPHATASE 79 Units/L (46-116); ASPARTATE AMINO TRANSFERASE 286 Units/L (15-37); BLOOD UREA NITROGEN 10 mg/dL (7-18); CHLORIDE 108 mmol/L (98-107); COR CA(FOR HYPOALB) 9.5 mg/dL (8.5-10.1); CREATININE 0.66 mg/dL (0.55-1.02); GLUCOSE 90 mg/dL (65-99); POTASSIUM 3.4 mmol/L (3.5-5.1); SODIUM 144 mmol/L (136-145); TOTAL PROTEIN 5.5 g/dL (6.4-8.2); eGFR NON BLACK RACES > 60 (>60)
[2024-02-27] MEDS: FARXIGA PO SCH (08:58)
[2024-02-27] MEDS ORDERED: PATIENT'S HOME MEDICATION (Dapagliflozin Propanediol [Farxiga] 10 mg tablet) PO SCH (09:00)
--- NOTE | 2024-02-27 12:37 | DR.H&P ---
H&P History & Physical for Day of: H&P Date: 02/27/24 Chief Complaint Chief Complaint: leg pain, weakness, abnormal labs Allergies Allergies Allergy/AdvReac Type Severity Reaction Status Date / Time codeine Allergy Unknown Verified 02/26/24 14:54 latex Allergy Verified 12/06/20 16:48 History of Present Illness History of Present Illness: Ms Palomino is a 53y/o female with a PMH of CAD s/p PCI, CHF, HTN, HLD , DM presented with generalized weakness and abnormal labs. She was seen at Dr Abel's office and noted to have elevated LFTs so was sent for admission. She states she was started on Entresto 2 weeks ago. She started having leg cramps recently. Denies chest pain or SOB. She states her last echo showed EF in the 40-45%. She was admitted for further management. Initial labs showed elevated LFTs, UA was suggestive of infection. CXR did not show any acute process. She was noted to have low BP. She was started on gentle hydration and IV antibiotics. CTAP was also ordered. She is feeling slightly better. She reports poor oral intake. Her leg pain has improved. Labs/imaging reviewed -WBC 6.9 Hgb 11.2 BUN/Cr 10/0.66 K: 3.4 Trop (-) BNP (-) AST/ALT: 286/238 -CXR: no acute process -CTAP pending Plan: continue gentle hydration, hold anti-hypertensives due to hypotension. Continue IV Zosyn, follow final Cx. Follow CTAP. Follow hepatitis panel and LFTs. Resume home medications. Replace K as per protocol. Check Mag level. Monitor AM labs/imaging. Past Medical History Past Medical History: Angina, Arthritis, CHF, Coronary Artery Disease and ND Past Surgical History Surgical History: Angioplasty/Stents and Cholecystectomy Family History Family Medical History: Diabetes Mellitus, ND, Coronary Artery Disease, Heart Failure and Hypertension Social History Does patient currently use any type of tobacco product: No Have you used tobacco products in the last 12 months: No Type of Tobacco Use: None Does any household member use tobacco: No Alcohol Use: None Drug Use: None Medications Home Medications: Home Medications Medication Instructions Recorded Confirmed Type rosuvastatin 40 mg tablet (Crestor) 40 mg PO HS 07/28/17 02/26/24 History carvedilol 6.25 mg tablet 6.25 mg PO BID 12/05/18 04/12/24 History alprazolam 1 mg tablet 1 mg PO TID PRN Anxiety 12/07/19 02/26/24 History ticagrelor 60 mg tablet (Brilinta) 60 mg PO BID 10/19/21 02/26/24 History apixaban 5 mg tablet (Eliquis) 5 mg PO BID 07/16/22 02/26/24 History spironolactone 50 mg tablet 25 mg PO QDAY 07/17/22 02/26/24 History zolpidem 10 mg tablet 10 mg PO QPM 07/17/22 02/26/24 History ciprofloxacin HCl 750 mg tablet 750 mg PO BID 02/26/24 02/26/24 History dapagliflozin propanediol 10 mg 10 mg PO QDAY 02/26/24 02/26/24 History tablet (Farxiga) nitroglycerin 0.4 mg sublingual 0.4 mg sublingual PRN angina 02/26/24 02/26/24 History tablet ondansetron HCl 8 mg tablet 8 mg PO Q8H PRN nausea 02/26/24 02/26/24 History sacubitril 24 mg-valsartan 26 mg 1 tab PO BID 02/26/24 02/26/24 History tablet (Entresto) tirzepatide 10 mg/0.5 mL 10 mg subcut QWEEK 02/26/24 02/26/24 History subcutaneous pen injector (Jluisunandrew) Labs 02/27/24 04:21 02/27/24 04:21 Labs: 02/26/24 14:25 Urine,Clean Catch Urine Culture - Preliminary Laboratory WBC 6.9 X10^3/uL (3.6-10.0) 02/27/24 04:21 RBC 3.73 X10^6/uL (3.5-5.4) 02/27/24 04:21 Hgb 11.2 g/dL (12.0-16.0) L 02/27/24 04:21 Hct 32.9 % (36.0-47.0) L 02/27/24 04:21 MCV 88.2 fL (80.0-100.0) 02/27/24 04:21 MCH 29.9 pg (27.0-34.0) 02/27/24 04:21 MCHC 33.9 g/dL (33.0-35.0) 02/27/24 04:21 RDW 14.5 % (11.6-16.5) 02/27/24 04:21 Plt Count 208 X10^3/uL (150.0-450.0) 02/27/24 04:21 MPV 8.8 fL (7.4-11.0) 02/27/24 04:21 Neut % (Auto) 69.8 % (42.0-75.0) 02/27/24 04:21 Lymph % (Auto) 18.9 % (21.0-51.0) L 02/27/24 04:21 [place] % (Auto) 9.2 % (0.0-13.0) 02/27/24 04:21 Eos % (Auto) 1.8 % (0.9-2.9) 02/27/24 04:21 Baso % (Auto) 0.3 % (0.2-1.0) 02/27/24 04:21 Neut # (Auto) 4.8 x10^3/uL (2.2-4.8) 02/27/24 04:21 Lymph # (Auto) 1.3 X10^3/uL (1.3-2.9) 02/27/24 04:21 [place] # (Auto) 0.6 x10^3/uL (0.3-0.8) 02/27/24 04:21 Eos # (Auto) 0.1 x10^3/uL (0.0-0.2) 02/27/24 04:21 Baso # (Auto) 0.0 X10^3/uL (0.0-0.1) 02/27/24 04:21 Absolute Nucleated RBC 0.0 /100WBC 02/27/24 04:21 Sodium 144 mmol/L (136-145) 02/27/24 04:21 Corrected Sodium TNP 02/27/24 04:21 Potassium 3.4 mmol/L (3.5-5.1) L 02/27/24 04:21 Chloride 108 mmol/L (98-107) H 02/27/24 04:21 Carbon Dioxide 29.0 mmol/L (21-32) 02/27/24 04:21 BUN 10 mg/dL (7-18) 02/27/24 04:21 Creatinine 0.66 mg/dL (0.55-1.02) 02/27/24 04:21 Est GFR (MDRD) Af Amer > 60 (>60) 02/27/24 04:21 Est GFR (MDRD) Non-Af > 60 (>60) 02/27/24 04:21 Glucose 90 mg/dL (65-99) 02/27/24 04:21 Calcium 8.0 mg/dL (8.5-10.1) L 02/27/24 04:21 Corrected Calcium 9.5 mg/dL (8.5-10.1) 02/27/24 04:21 Total Bilirubin 0.40 mg/dL (0.2-1.0) 02/27/24 04:21 AST 286 Units/L (15-37) H 02/27/24 04:21 ALT 238 Units/L (12-78) H 02/27/24 04:21 Alkaline Phosphatase 79 Units/L (46-116) 02/27/24 04:21 Troponin I High Sens 8.7 ng/L (4.0-60.0) 02/26/24 19:48 B-Natriuretic Peptide 49.3 pg/mL (0-79) 02/26/24 14:02 Total Protein 5.5 g/dL (6.4-8.2) L 02/27/24 04:21 Albumin 2.1 g/dL (3.4-5.0) L 02/27/24 04:21 Globulin 3.4 g/dL (2.5-4.5) 02/27/24 04:21 Albumin/Globulin Ratio 0.6 Ratio (1.1-2.1) L 02/27/24 04:21 Specimen Type Clean catch urine 02/26/24 14:25 Urine Color Dark yellow (YELLOW) 02/26/24 14:25 Urine Appearance Cloudy (CLEAR) 02/26/24 14:25 Urine pH 7.0 (5.0 - 8.0) 02/26/24 14:25 Ur Specific [place] 1.015 (1.000-1.030) 02/26/24 14:25 Urine Protein 3+ (NEGATIVE) 02/26/24 14:25 Urine Glucose (UA) 4+ (NEGATIVE) 02/26/24 14:25 Urine Ketones Negative (NEGATIVE) 02/26/24 14:25 Urine Blood 5+ (NEGATIVE) 02/26/24 14:25 Urine Nitrite Negative (NEGATIVE) 02/26/24 14:25 Urine Bilirubin Negative (NEGATIVE) 02/26/24 14:25 Urine Urobilinogen Normal (NORMAL) 02/26/24 14:25 Ur Leukocyte Esterase 3+ (NEGATIVE) 02/26/24 14:25 Urine RBC 0-2 /HPF (0-3) 02/26/24 14:25 Urine WBC Tntc /HPF (0-5) A 02/26/24 14:25 Ur Squamous Epith Cells Rare /HPF (NEGATIVE) 02/26/24 14:25 Calcium Oxalate Crystal Rare /HPF (NEGATIVE) 02/26/24 14:25 Urine Bacteria 4+ /HPF (NEGATIVE) 02/26/24 14:25 Ur Culture Indicated? Yes/culture set up 02/26/24 14:25 Review of Systems Constitutional: Malaise Eyes: No Symptoms Reported ENT: No Symptoms Reported Respiratory: No Symptoms Reported Cardiovascular: No Symptoms Reported Gastrointestinal: No Symptoms Reported Genitourinary: No Symptoms Reported Musculoskeletal: Leg Pain Skin: No Symptoms Reported Neurological: No Symptoms Reported Physical Exam Vital Signs: Vital Signs Temperature 97.7 F Temperature 97.7 F Pulse Rate [Right Radial] 77 Pulse Rate [Right Radial] 77 Respiratory Rate 18 Respiratory Rate 20 Respiratory Rate 20 Respiratory Rate 18 Blood Pressure [Right Arm] 107/55 Blood Pressure [Right Arm] 94/52 O2 Sat by Pulse Oximetry 98 O2 Sat by Pulse Oximetry 98 Oriented: Normal Eyes: Normal Nose: Normal Throat: Normal Respiratory: Clear Throughout Cardiovascular: Normal and Edema Auscultation: Bowel Sounds: Normal Palpation: Normal Tenderness: Normal Skin: Normal Musculoskeletal: Leg Psychiatric: Anxiety Mood Description: Calm Affect: Anxious Speech Pattern: Clear and Appropriate Assessment/Plan (1) UTI (urinary tract infection): Qualifiers: Urinary tract infection type: acute cystitis Hematuria presence: without hematuria Qualified Code(s): N30.00 - Acute cystitis without hematuria Status: Acute (2) Hypokalemia: Status: Inactive (3) Hypotension: Qualifiers: Hypotension type: idiopathic hypotension Qualified Code(s): I95.0 - Idiopathic hypotension Status: Acute (4) Generalized weakness: Status: Acute (5) Transaminitis: Status: Acute (6) Atrial fibrillation: Qualifiers: Atrial fibrillation type: unspecified Qualified Code(s): I48.91 - Unspecified atrial fibrillation Status: Chronic (7) CAD (coronary artery disease): Qualifiers: Associated angina: unspecified whether angina present Coronary Disease- Associated Artery/Lesion type: [place] artery [place] vs. transplanted heart: [place] heart Qualified Code(s): I25.10 - Atherosclerotic heart disease of [place] coronary artery without angina pectoris Status: Chronic (8) CHF (congestive heart failure): Qualifiers: Heart failure chronicity: unspecified Heart failure type: unspecified Qualified Code(s): I50.9 - Heart failure, unspecified Status: Chronic Review H&P Reviewed: Yes Patient was examined?: Yes
--- NOTE | 2024-02-27 13:15 | CT ---
EXAM:CT ABDOMEN AND PELVIS WITH CONTRASTHISTORY:ELEVATED LFT'S; HX: CAD, CHF. UMBILICAL HERNIA, A-FIB, [place] SX: OPEN HEART X2, TRIPLE BYPASS, PARTIAL HYSTERECTOMY, GB, STENTS ; 350 OMNIPAQUE, 100 MLCOMPARISON:None.TECHNIQUE:Axial CT images were obtained through the abdomen and pelvis after the intravenous administration of contrast. Coronal reformatted images were included.Informed written consent was obtained prior to contrast administration.All CT scans at this facility use dose modulation, iterative reconstruction, and/or weight based dosing when appropriate to reduce radiation dose to as low as reasonably achievable.FINDINGS:LOWER THORAX: Within normal limits.ABDOMEN:LIVER: Within normal limits.GALLBLADDER: AbsentSPLEEN: Within normal limits.PANCREAS: Within normal limits.KIDNEYS: Nonobstructive left renal calculi are seenADRENAL GLANDS: Within normal limits.GI TRACT: Moderate colonic stoolLYMPH NODES: No abnormally enlarged nodes.VESSELS: Mild diffuse athero sclerotic diseasePERITONEUM / RETROPERITONEUM: No free gas.PELVIS:BLADDER: Mild bladder wall thickeningGENITALS: Uterus is absentBONES: Within normal limits.IMPRESSION:Mild diffuse thickening of the bladder wall. Correlation with urinalysis suggested. There is also mild perivesical fat stranding which may suggest cystitis.No acute abnormality in the right upper quadrant postcholecystectomy. No biliary obstruction.THIS IS AN ELECTRONICALLY VERIFIED FINAL REPORT02/27/2024 1:11 PM - Electronically signed by Adam Serra MD
[2024-02-28 05:19] LABS: BASOPHILS % (AUTO) 0.3 % (0.2-1.0); EOSINOPHILS # (AUTO) 0.3 x10^3/uL (0.0-0.2); EOSINOPHILS % (AUTO) 3.6 % (0.9-2.9); HEMATOCRIT 36.9 % (36.0-47.0); HEMOGLOBIN 12.3 g/dL (12.0-16.0); LYMPHOCYTES # (AUTO) 1.4 X10^3/uL (1.3-2.9); LYMPHOCYTES % (AUTO) 18.4 % (21.0-51.0); MEAN CORPUSCULAR HEMOGLOBIN 29.6 pg (27.0-34.0); MEAN CORPUSCULAR HGB CONC 33.2 g/dL (33.0-35.0); MEAN PLATELET VOLUME 8.4 fL (7.4-11.0); MONOCYTES # (AUTO) 0.6 x10^3/uL (0.3-0.8); MONOCYTES % (AUTO) 8.3 % (0.0-13.0); NEUTROPHILS # (AUTO) 5.3 x10^3/uL (2.2-4.8); NEUTROPHILS % (AUTO) 69.4 % (42.0-75.0); PLATELET COUNT 214 X10^3/uL (150.0-450.0); RED BLOOD COUNT 4.14 X10^6/uL (3.5-5.4); RED CELL DISTRIBUTION WIDTH 14.9 % (11.6-16.5); WHITE BLOOD COUNT 7.6 X10^3/uL (3.6-10.0)
[2024-02-28 05:39] LABS: ALANINE AMINOTRANSFERASE 223 Units/L (12-78); ALBUMIN 2.3 g/dL (3.4-5.0); ALKALINE PHOSPHATASE 83 Units/L (46-116); ASPARTATE AMINO TRANSFERASE 207 Units/L (15-37); BLOOD UREA NITROGEN 10 mg/dL (7-18); CALCIUM 8.1 mg/dL (8.5-10.1); CARBON DIOXIDE 26.6 mmol/L (21-32); CHLORIDE 108 mmol/L (98-107); COR CA(FOR HYPOALB) 9.5 mg/dL (8.5-10.1); CREATININE 0.68 mg/dL (0.55-1.02); GLUCOSE 93 mg/dL (65-99); MAGNESIUM 2.1 mg/dL (2.0-2.9); POTASSIUM 3.6 mmol/L (3.5-5.1); SODIUM 142 mmol/L (136-145); TOTAL PROTEIN 6.1 g/dL (6.4-8.2); eGFR NON BLACK RACES > 60 (>60)
[2024-02-28] MEDS ORDERED: CONSULT PHARMACY - POTASSIUM & MAGNESIUM XX SCH (06:00)
[2024-02-28] MEDS: K-DUR TAB 20 MEQ PO SCH (08:20)
[2024-02-28] MEDS: COREG TAB 3.125 MG PO SCH (10:37)
[2024-02-28] MEDS: ROCEPHIN VIAL 1 GRAM 1 G in NS 100 ML IV 100 ML IV SCH (10:37)
[2024-02-28] MEDS ORDERED: NORCO 10/325 TAB PO PRN (12:03)
--- NOTE | 2024-02-28 12:04 | PCM.PROG ---
Progress Note Progress Note for Day of Date of Exam: 02/28/24 Subjective Subjective: Patient seen at bedside, reports feeling slightly better. She states her legs still hurt a bit. Denies any redness or swelling. Urine Cx showed E.coli. LFTs are trending down. CTAP showed acute cystitis, normal liver. Labs/imaging: -WBC 7.6 Hgb 12.3 BUN/CrL 10/0.68 K:3.6 Ma.1 AST/ALT:207/223 -CTAP reviewed -Urine Cx: E.coli Plan: Switch Zosyn to Rocephin, stop IVF. Resume coreg, decrease to 3.125mg BID. Order CXR. Monitor BP. Hold Entresto and aldactone. Will order CXR. Continue other home medications. Add Demerol prn. Decrease [place] to TID prn. Monitor AM labs/imaging. PT/OT as tolerated. Past Medical Family Social History Allergies: Allergies codeine Allergy (Unknown, Verified 02/26/24 14:54) Reason: Drug allergy latex Allergy (Verified 12/06/20 16:48) Vital Signs and I&O's Vital Signs: Vital Signs Temperature 97.8 F Temperature 98.0 F Temperature 97.8 F Pulse Rate [Right Radial] 77 Pulse Rate [Right Radial] 77 Pulse Rate [Right Radial] 80 Respiratory Rate 20 Respiratory Rate 20 Respiratory Rate 18 Respiratory Rate 18 Respiratory Rate 20 Blood Pressure [Right Arm] 91/52 Blood Pressure [Right Arm] 108/54 Blood Pressure [Right Arm] 97/50 O2 Sat by Pulse Oximetry 96 O2 Sat by Pulse Oximetry 97 O2 Sat by Pulse Oximetry 98 Intake and Output: Intake & Output 02/25/24 02/26/24 02/27/24 02/28/24 23:59 23:59 23:59 23:59 Intake Total 945 / 945 2889 / 2889 1382 / 1382 Balance 945 / 945 2889 / 2889 1382 / 1382 Physical Exam Oriented: Normal Eyes: Normal Nose: Normal Throat: Normal Respiratory: Rales Cardiovascular: Normal and Edema Auscultation: Bowel Sounds: Normal Palpation: Normal Tenderness: Normal Skin: Normal Musculoskeletal: Leg Psychiatric: Anxiety Mood Description: Calm Affect: Anxious Speech Pattern: Clear and Appropriate Laboratory and Diagnostics 02/28/24 04:20 02/28/24 04:20 Labs: 02/26/24 14:25 Urine,Clean Catch Urine Culture - Final Escherichia Coli Laboratory WBC 7.6 X10^3/uL (3.6-10.0) 02/28/24 04:20 RBC 4.14 X10^6/uL (3.5-5.4) 02/28/24 04:20 Hgb 12.3 g/dL (12.0-16.0) 02/28/24 04:20 Hct 36.9 % (36.0-47.0) 02/28/24 04:20 MCV 89.0 fL (80.0-100.0) 02/28/24 04:20 MCH 29.6 pg (27.0-34.0) 02/28/24 04:20 MCHC 33.2 g/dL (33.0-35.0) 02/28/24 04:20 RDW 14.9 % (11.6-16.5) 02/28/24 04:20 Plt Count 214 X10^3/uL (150.0-450.0) 02/28/24 04:20 MPV 8.4 fL (7.4-11.0) 02/28/24 04:20 Neut % (Auto) 69.4 % (42.0-75.0) 02/28/24 04:20 Lymph % (Auto) 18.4 % (21.0-51.0) L 02/28/24 04:20 [place] % (Auto) 8.3 % (0.0-13.0) 02/28/24 04:20 Eos % (Auto) 3.6 % (0.9-2.9) H 02/28/24 04:20 Baso % (Auto) 0.3 % (0.2-1.0) 02/28/24 04:20 Neut # (Auto) 5.3 x10^3/uL (2.2-4.8) H 02/28/24 04:20 Lymph # (Auto) 1.4 X10^3/uL (1.3-2.9) 02/28/24 04:20 [place] # (Auto) 0.6 x10^3/uL (0.3-0.8) 02/28/24 04:20 Eos # (Auto) 0.3 x10^3/uL (0.0-0.2) H 02/28/24 04:20 Baso # (Auto) 0.0 X10^3/uL (0.0-0.1) 02/28/24 04:20 Absolute Nucleated RBC 0.0 /100WBC 02/28/24 04:20 Sodium 142 mmol/L (136-145) 02/28/24 04:20 Corrected Sodium TNP 02/28/24 04:20 Potassium 3.6 mmol/L (3.5-5.1) 02/28/24 04:20 Chloride 108 mmol/L (98-107) H 02/28/24 04:20 Carbon Dioxide 26.6 mmol/L (21-32) 02/28/24 04:20 BUN 10 mg/dL (7-18) 02/28/24 04:20 Creatinine 0.68 mg/dL (0.55-1.02) 02/28/24 04:20 Est GFR (MDRD) Af Amer > 60 (>60) 02/28/24 04:20 Est GFR (MDRD) Non-Af > 60 (>60) 02/28/24 04:20 Glucose 93 mg/dL (65-99) 02/28/24 04:20 Calcium 8.1 mg/dL (8.5-10.1) L 02/28/24 04:20 Corrected Calcium 9.5 mg/dL (8.5-10.1) 02/28/24 04:20 Magnesium 2.1 mg/dL (2.0-2.9) 02/28/24 04:20 Total Bilirubin 0.30 mg/dL (0.2-1.0) 02/28/24 04:20 AST 207 Units/L (15-37) H 02/28/24 04:20 ALT 223 Units/L (12-78) H 02/28/24 04:20 Alkaline Phosphatase 83 Units/L (46-116) 02/28/24 04:20 Troponin I High Sens 8.7 ng/L (4.0-60.0) 02/26/24 19:48 B-Natriuretic Peptide 49.3 pg/mL (0-79) 02/26/24 14:02 Total Protein 6.1 g/dL (6.4-8.2) L 02/28/24 04:20 Albumin 2.3 g/dL (3.4-5.0) L 02/28/24 04:20 Globulin 3.8 g/dL (2.5-4.5) 02/28/24 04:20 Albumin/Globulin Ratio 0.6 Ratio (1.1-2.1) L 02/28/24 04:20 Specimen Type Clean catch urine 02/26/24 14:25 Urine Color Dark yellow (YELLOW) 02/26/24 14: Urine Appearance Cloudy (CLEAR) 02/26/24 14:25 Urine pH 7.0 (5.0 - 8.0) 02/26/24 14:25 Ur Specific [place] 1.015 (1.000-1.030) 02/26/24 14:25 Urine Protein 3+ (NEGATIVE) 02/26/24 14: Urine Glucose (UA) 4+ (NEGATIVE) 02/26/24 14: Urine Ketones Negative (NEGATIVE) 02/26/24 14: Urine Blood 5+ (NEGATIVE) 02/26/24 14: Urine Nitrite Negative (NEGATIVE) 02/26/24 14:25 Urine Bilirubin Negative (NEGATIVE) 02/26/24 14:25 Urine Urobilinogen Normal (NORMAL) 02/26/24 14:25 Ur Leukocyte Esterase 3+ (NEGATIVE) 02/26/24 14:25 Urine RBC 0-2 /HPF (0-3) 02/26/24 14:25 Urine WBC Tntc /HPF (0-5) A 02/26/24 14:25 Ur Squamous Epith Cells Rare /HPF (NEGATIVE) 02/26/24 14:25 Calcium Oxalate Crystal Rare /HPF (NEGATIVE) 02/26/24 14:25 Urine Bacteria 4+ /HPF (NEGATIVE) 02/26/24 14:25 Ur Culture Indicated? Yes/culture set up 02/26/24 14:25 Plan (1) UTI (urinary tract infection): Status: Acute Qualifiers: Hematuria presence: without hematuria Urinary tract infection type: acute cystitis Qualified Code(s): N30.00 - Acute cystitis without hematuria (2) Hypokalemia: Status: Inactive (3) Hypotension: Status: Acute Qualifiers: Hypotension type: idiopathic hypotension Qualified Code(s): I95.0 - Idiopathic hypotension (4) Generalized weakness: Status: Acute (5) Transaminitis: Status: Acute (6) Atrial fibrillation: Status: Chronic Qualifiers: Atrial fibrillation type: unspecified Qualified Code(s): I48.91 - Unspecified atrial fibrillation (7) CAD (coronary artery disease): Status: Chronic Qualifiers: Associated angina: unspecified whether angina present Coronary Disease- Associated Artery/Lesion type: [place] artery [place] vs. transplanted heart: [place] heart Qualified Code(s): I25.10 - Atherosclerotic heart disease of [place] coronary artery without angina pectoris (8) CHF (congestive heart failure): Status: Chronic Qualifiers: Heart failure chronicity: unspecified Heart failure type: unspecified Qualified Code(s): I50.9 - Heart failure, unspecified
--- NOTE | 2024-02-28 14:23 | RAD ---
EXAM:CHESTHISTORY:SOB;COMPARISON: [email or web address] submitted for interpretation.FINDINGS:The cardiomediastinal silhouette is stable in size post CABG lungs show no focal consolidation, pneumothorax, or pleural fluid.IMPRESSION:No acute cardiopulmonary process.THIS IS AN ELECTRONICALLY VERIFIED FINAL REPORT02/28/2024 2:20 PM - Electronically signed by Adam Serra MD
[2024-02-28] MEDS: ZOFRAN INJ 4 MG VIAL IVP PRN (14:34)
[2024-02-28] MEDS: DEMEROL INJ IVP PRN (14:34)
[2024-02-29 04:22] VITALS: O2SAT 95
[2024-02-29 05:51] LABS: ALANINE AMINOTRANSFERASE 178 Units/L (12-78); ALBUMIN 2.2 g/dL (3.4-5.0); ALKALINE PHOSPHATASE 82 Units/L (46-116); ASPARTATE AMINO TRANSFERASE 132 Units/L (15-37); BLOOD UREA NITROGEN 11 mg/dL (7-18); CALCIUM 8.2 mg/dL (8.5-10.1); CARBON DIOXIDE 25.6 mmol/L (21-32); CHLORIDE 107 mmol/L (98-107); COR CA(FOR HYPOALB) 9.6 mg/dL (8.5-10.1); CREATININE 0.46 mg/dL (0.55-1.02); GLUCOSE 83 mg/dL (65-99); SODIUM 141 mmol/L (136-145); TOTAL PROTEIN 6.1 g/dL (6.4-8.2); eGFR NON BLACK RACES > 60 (>60)
[2024-02-29 06:07] LABS: BASOPHILS # (AUTO) 0.1 X10^3/uL (0.0-0.1); BASOPHILS % (AUTO) 0.8 % (0.2-1.0); EOSINOPHILS # (AUTO) 0.2 x10^3/uL (0.0-0.2); EOSINOPHILS % (AUTO) 2.6 % (0.9-2.9); HEMATOCRIT 36.4 % (36.0-47.0); HEMOGLOBIN 12.2 g/dL (12.0-16.0); LYMPHOCYTES # (AUTO) 1.8 X10^3/uL (1.3-2.9); LYMPHOCYTES % (AUTO) 22.5 % (21.0-51.0); MEAN CORPUSCULAR HEMOGLOBIN 29.5 pg (27.0-34.0); MEAN CORPUSCULAR HGB CONC 33.5 g/dL (33.0-35.0); MEAN CORPUSCULAR VOLUME 87.9 fL (80.0-100.0); MEAN PLATELET VOLUME 8.2 fL (7.4-11.0); MONOCYTES # (AUTO) 0.5 x10^3/uL (0.3-0.8); MONOCYTES % (AUTO) 6.4 % (0.0-13.0); NEUTROPHILS # (AUTO) 5.3 x10^3/uL (2.2-4.8); NEUTROPHILS % (AUTO) 67.7 % (42.0-75.0); PLATELET COUNT 225 X10^3/uL (150.0-450.0); RED BLOOD COUNT 4.14 X10^6/uL (3.5-5.4); RED CELL DISTRIBUTION WIDTH 14.7 % (11.6-16.5); WHITE BLOOD COUNT 7.9 X10^3/uL (3.6-10.0)
[2024-02-29 12:14] VITALS: BP 116/55; PULSE 87; RESP 18; TEMP 98.4
[2024-03-02 15:07] LABS: HEPATITIS B SURFACE ANTIGEN Negative (Negative)
== END 2024-02-29 16:15 | disposition home or self-care (01) ==
LOC: MED/SURG
PROVIDERS: ADMIT Internal Medicine; ATTEND Internal Medicine

== ENCOUNTER 2025-05-30 17:22 | Observation (INO) ==
--- NOTE | 2025-05-30 18:12 | DR.GENAD ---
HPI Time Seen Time Seen by Provider: 05/30/25 18:11 PCP Primary Care Physician: Dr. Abel Complaint/Symptoms Chief Complaint Doctors Comments: 54 yo F, hx of CAD, CHF, Afib on eliquis and brilinta, c/o weakness and low BP. Was at PCP office today, found BP to be 68/32 at office, sent to the ER. Denies CP. Admits to intermitt palpitations the past 2 wk. Denies other complaints. Chief Complaint:: Pt states that she went to a scheduled appointment with her pcp around 1400 today and while there started having dizziness and generalized weakness. Pt's BP in the office was 68/32. Pt states taht for the past 2 weeks she has had intermittent chest pain that she describes as pressure with sharp stabbing pain to the substernal chest radiating into the left chest. Pain is worse with taking a deep breath. Pt does feel like for this same amount of time she has had more labored breathing and palpitations. Denies any cold, cough, congestion, fever, chills, or dysuria. COVID-19 Coronavirus risk:travel/contact w/high risk person: No Has patient experienced Coronavirus symptoms: No Source History Provided: Patient Mode of Arrival Mode of Arrival: Ambulatory Timing Onset of Chief Complaint: 05/30/25 PMH PMH Past Medical History: Yes Past Medical History: Anemia, Anxiety, CHF, Coronary Artery Disease, Dyslipidemia and DC Past Medical History Comment: afib Past Surgical History: Yes Surgical History: Angioplasty/Stents, CABG/Valve Surgery, Cholecystectomy and Hysterectomy Past Surgical History Comment: cardiac ablation x 2, breast implants, removal of breast implants Family History History of Family Medical Conditions: Yes Family Medical History: Coronary Artery Disease and Hypertension Social History Does patient currently use any type of tobacco product: No Have you used tobacco products in the last 12 months: No Type of Tobacco Use: None Does any household member use tobacco: No Alcohol Use: None Do you use any recreational Drugs:: No Lives With: Family Lives Where: Home Travel Risk Coronavirus risk:travel/contact w/high risk person: No Has patient experienced Coronavirus symptoms: No Infectious screening In the last 2 months have you had wt loss of >10#?: NO Have you had fever, night sweats or hemotysis?: No Have you traveled outside the country in the last 6 months?: No Isolation: Standard ROS Review of Systems Constitutional: Weakness and Fatigue All Other Systems: Reviewed and Negative PE Vital Signs Vitals: Vital Signs Temperature 97.9 F Pulse Rate 71 Pulse Rate 70 Pulse Rate 71 Pulse Rate 66 Pulse Rate 65 Pulse Rate 64 Pulse Rate 64 Pulse Rate 63 Pulse Rate 69 Pulse Rate 66 Pulse Rate 66 Respiratory Rate 21 Respiratory Rate 29 Respiratory Rate 19 Respiratory Rate 12 Respiratory Rate 11 Respiratory Rate 11 Respiratory Rate 14 Respiratory Rate 11 Respiratory Rate 20 Respiratory Rate 19 Respiratory Rate 20 Blood Pressure 95/52 Blood Pressure 88/49 Blood Pressure 81/45 Blood Pressure 96/48 Blood Pressure 91/45 Blood Pressure 89/42 O2 Sat by Pulse Oximetry 100 O2 Sat by Pulse Oximetry 99 O2 Sat by Pulse Oximetry 98 O2 Sat by Pulse Oximetry 97 O2 Sat by Pulse Oximetry 99 O2 Sat by Pulse Oximetry 97 O2 Sat by Pulse Oximetry 99 O2 Sat by Pulse Oximetry 100 O2 Sat by Pulse Oximetry 100 General Limitations: No Limitations General Appearance: Alert and In No Apparent Distress Head Head Exam: Normal Inspection Eyes Eye exam: Normal Appearance ENT ENT Exam: Normal Exam External Ear Exam: Normal External Inspection TM/Canal Exam: Bilateral: Normal Nose Exam: Normal Nose Exam Mouth Exam: Normal Inspection Throat Exam: Normal Inspection Neck Neck Exam: Normal Inspection Chest Chest Inspection: Normal Inspection Respiratory Respiratory Exam: Normal Lung Sounds Bilat Respiratory Exam: Bilateral: Clear to Auscultation Cardiovascular Cardiovascular Exam: Regular Rate and Normal Rhythm Abdominal Exam Abdominal Exam: Normal Inspection, Normal Bowel Sounds and Soft Extremities Extremities Exam: Normal Inspection Back Back Exam: Normal Inspection Neurologic Neurological Exam: Alert and Oriented X3 Psychiatric Psychiatric Exam: Normal Affect and Normal Mood Skin Skin Exam: Warm, Dry, Intact and Normal Color ROR Labs Reviewed Laboratory Results Reviewed?: Yes 05/30/25 17:44 05/30/25 17:44 Laboratory: WBC 6.4 X10^3/uL (3.6-10.0) 05/30/25 17:44 RBC 3.71 X10^6/uL (3.5-5.4) 05/30/25 17:44 Hgb 11.1 g/dL (12.0-16.0) L 05/30/25 17:44 Hct 32.7 % (36.0-47.0) L 05/30/25 17:44 MCV 88.0 fL (80.0-100.0) 05/30/25 17:44 MCH 30.0 pg (27.0-34.0) 05/30/25 17:44 MCHC 34.1 g/dL (33.0-35.0) 05/30/25 17:44 RDW 13.2 % (11.6-16.5) 05/30/25 17:44 Plt Count 209 X10^3/uL (150.0-450.0) 05/30/25 17:44 MPV 8.2 fL (7.4-11.0) 05/30/25 17:44 Neut % (Auto) 53.0 % (42.0-75.0) 05/30/25 17:44 Lymph % (Auto) 33.9 % (21.0-51.0) 05/30/25 17:44 [place] % (Auto) 9.1 % (0.0-13.0) 05/30/25 17:44 Eos % (Auto) 3.4 % (0.9-2.9) H 05/30/25 17:44 Baso % (Auto) 0.6 % (0.2-1.0) 05/30/25 17:44 Neut # (Auto) 3.4 x10^3/uL (2.2-4.8) 05/30/25 17:44 Lymph # (Auto) 2.2 X10^3/uL (1.3-2.9) 05/30/25 17:44 [place] # (Auto) 0.6 x10^3/uL (0.3-0.8) 05/30/25 17:44 Eos # (Auto) 0.2 x10^3/uL (0.0-0.2) 05/30/25 17:44 Baso # (Auto) 0.0 X10^3/uL (0.0-0.1) 05/30/25 17:44 Absolute Nucleated RBC 0.1 /100WBC 05/30/25 17:44 PT 19.5 SECONDS (11.8-14.3) 05/30/25 17:44 INR Target Range - 05/30/25 17:44 INR 1.64 (0.8-1.3) H 05/30/25 17:44 APTT 45.9 SECONDS (22.9-36.5) H 05/30/25 17:44 PTT Comment - 05/30/25 17:44 Sodium 138 mmol/L (136-145) 05/30/25 17:44 Corrected Sodium TNP 05/30/25 17:44 Potassium 4.1 mmol/L (3.5-5.1) 05/30/25 17:44 Chloride 102 mmol/L (98-107) 05/30/25 17:44 Carbon Dioxide 31.1 mmol/L (21-32) 05/30/25 17:44 BUN 27 mg/dL (7-18) H 05/30/25 17:44 Creatinine 1.20 mg/dL (0.55-1.02) H 05/30/25 17:44 Est GFR (MDRD) Af Amer 60 (>60) 05/30/25 17:44 Est GFR (MDRD) Non-Af 50 (>60) L 05/30/25 17:44 Glucose 85 mg/dL (65-99) 05/30/25 17:44 Calcium 8.7 mg/dL (8.5-10.1) 05/30/25 17:44 Corrected Calcium TNP 05/30/25 17:44 Magnesium 2.0 mg/dL (2.0-2.9) 05/30/25 17:44 Total Bilirubin 0.40 mg/dL (0.2-1.0) 05/30/25 17:44 AST 21 Units/L (15-37) 05/30/25 17:44 ALT 21 Units/L (12-78) 05/30/25 17:44 Alkaline Phosphatase 98 Units/L (46-116) 05/30/25 17:44 Creatine Kinase 197 Units/L (26-192) H 05/30/25 17:44 Troponin I High Sens 4.3 ng/L (4.0-60.0) 05/30/25 17:44 Total Protein 7.3 g/dL (6.4-8.2) 05/30/25 17:44 Albumin 3.6 g/dL (3.4-5.0) 05/30/25 17:44 Globulin 3.7 g/dL (2.5-4.5) 05/30/25 17:44 Albumin/Globulin Ratio 1.0 Ratio (1.1-2.1) L 05/30/25 17:44 Opioid Opioid Risk Tool Age (Marcus box if 16-45): No History of Preadolescent Sexual Abuse: No Total: 0 Total Score Risk Category: Low Risk Copyright: Nabil WARNER predicting aberrant behaviors Discharge Plan Diagnosis Discharge Problem: Acute hypotension, Congestive heart failure Discharge Plan Patient Disposition: 09 ADMITTED INPATIENT Condition: Stable Prescriptions: No Action magnesium oxide 400 MG tablet 400 mg PO BID Qty: 60 3RF rosuvastatin [Crestor] 40 MG tablet 40 mg PO HS hydrocodone-acetaminophen 10 MG/325 MG tablet 1 tab PO QID PRN (Reason: Pain) Qty: 120 0RF Rx Instructions: TAKE ONE TABLET BY MOUTH FOUR TIMES A DAY NEEDED FOR PAIN FOR 30 DAYS Brilinta 60 mg tablet 60 mg PO BID Eliquis 5 mg tablet 5 mg PO BID dapagliflozin propanediol [Farxiga] 10 mg tablet 10 mg PO QDAY nitroglycerin 0.4 mg tablet, sublingual 0.4 mg sublingual PRN Mounjaro 10 mg/0.5 mL pen injector 10 mg SUBCUT QWEEK ondansetron HCl 8 mg tablet 8 mg PO Q8H PRN (Reason: nausea) alprazolam 1 tablet 1 mg PO TID PRN (Reason: Anxiety) Rx Instructions: TAKE ONE TABLET THREE TIMES A DAY zolpidem 10 mg tablet 10 mg PO QPM divalproex 125 mg Capsule, Delayed Rel Sprinkle 125 mg PO BID 30 Days Qty: 60 1RF Health Concerns: Post Hospitalization: new medications and changes needed to prevent readmission or further decline. Pt educated and given instructions on all concerns. Plan of Treatment: Continue with present treatment and follow up plan. Pt is to keep follow up appointment as instructed and take medications as ordered. Follow ups/Referrals Follow ups/Referrals: Juan Francisco Abel [Primary Care Provider, MEDICAL] - 3 days Instructions Stand Alone Forms: Find Help Web Site, Post Hospital Follow Up Care Print Language: POLISH ADDITIONAL NOTES Additional Notes Additional Notes: BP has continued to be low. Will admit for further workup and management of CHF and Hypotension.
[2025-05-30 18:30] LABS: MEAN PLATELET VOLUME 8.2 fL (7.4-11.0); RED CELL DISTRIBUTION WIDTH 13.2 % (11.6-16.5)
--- NOTE | 2025-05-30 18:31 | EKG ---
Test Reason : weakness Blood Pressure : */* mmHG Vent. Rate : 64 BPM Atrial Rate : 64 BPM P-R Int : 174 ms QRS Dur : 102 ms QT Int : 520 ms P-R-T Axes : 34 61 104 degrees QTc Int : 536 ms Normal sinus rhythm Low voltage QRS Septal infarct (cited on or before 26-FEB-2024) Abnormal ECG When compared with ECG of 26-FEB-2024 13:41, Questionable change in initial forces of Anterior leads Nonspecific T wave abnormality no longer evident in Inferior leads Nonspecific T wave abnormality, improved in Anterolateral leads QT has lengthened Confirmed by Shun Solitario MD ([id number]) on 05/31/2025 6:06:50 AM Referred By: Confirmed By: Shun Solitario MD
[2025-05-30 18:34] LABS: INR 1.64 (0.8-1.3)
[2025-05-30 18:41] LABS: CREATININE 1.20 mg/dL (0.55-1.02); eGFR NON BLACK RACES 50 (>60)
[2025-05-30] MEDS ORDERED: NS 1,000 ML IV 1,000 ML ONE (19:22)
[2025-05-30] MEDS: NS 500 ML IV 500 ML IV ONE (19:23)
[2025-05-30] MEDS: NS 1,000 ML IV 1,000 ML IV SCH (19:24)
[2025-05-30] MEDS: PROAMATINE PO ONE (19:45)
[2025-05-30] MEDS ORDERED: ULTRAM PO PRN (20:52)
[2025-05-30] MEDS ORDERED: TYLENOL 325 MG TAB PO PRN (20:52)
[2025-05-30] MEDS ORDERED: MORPHINE SULFATE INJ 2 MG INJ IVP PRN (20:52)
[2025-05-30] MEDS ORDERED: ALPRAZOLAM PO PRN (20:55)
[2025-05-30] MEDS ORDERED: PATIENT'S HOME MEDICATION (Ondansetron Hcl 8 mg tablet) PO PRN (20:55)
--- NOTE | 2025-05-30 21:31 | EKG ---
Test Reason : CHF Exacerbation, Hypotension Blood Pressure : */* mmHG Vent. Rate : 72 BPM Atrial Rate : 72 BPM P-R Int : 182 ms QRS Dur : 102 ms QT Int : 408 ms P-R-T Axes : 78 72 145 degrees QTc Int : 446 ms Normal sinus rhythm Low voltage QRS Septal infarct (cited on or before 26-FEB-2024) Nonspecific T wave abnormality Abnormal ECG When compared with ECG of 30-MAY-2025 18:30, (Unconfirmed) Nonspecific T wave abnormality now evident in Inferior leads Nonspecific T wave abnormality, worse in Lateral leads QT has shortened Confirmed by Shun Solitario MD ([id number]) on 05/31/2025 6:06:23 AM Referred By: Confirmed By: Shun Solitario MD
[2025-05-30] MEDS: CONSULT PHARMACY - POTASSIUM & MAGNESIUM XX SCH (21:42)
[2025-05-30] MEDS: MAG-OX TAB PO SCH (21:56)
[2025-05-30] MEDS: DEPAKOTE SPRINKLE PO SCH (21:56)
[2025-05-30] MEDS: AMBIEN PO SCH (21:56)
[2025-05-30] MEDS: ELIQUIS PO SCH (21:56)
[2025-05-30 22:07] VITALS: BMI 31.7
[2025-05-31 05:57] LABS: MEAN PLATELET VOLUME 8.1 fL (7.4-11.0); RED CELL DISTRIBUTION WIDTH 13.3 % (11.6-16.5)
[2025-05-31 06:18] LABS: COR CA(FOR HYPOALB) 9.2 mg/dL (8.5-10.1); CREATININE 0.89 mg/dL (0.55-1.02); eGFR NON BLACK RACES > 60 (>60)
--- NOTE | 2025-05-31 08:22 | RAD ---
EXAM: CHEST, 1 VIEW HISTORY: SOB; COMPARISON: 02/28/2024 FINDINGS: Suboptimal positioning. Possible venous congestion and interstitial pulmonary edema new since prior study. No pleural effusion. No consolidation to suggest pneumonia. Cardiomegaly is present. The bones are unremarkable. Median sternotomy fixation hardware is present. EKG leads are noted. IMPRESSION: 1. Findings suggesting venous congestion and pulmonary edema 2. Cardiomegaly THIS IS AN ELECTRONICALLY VERIFIED FINAL REPORT 05/31/2025 8:19 AM - Electronically signed by Vinny Gonzalez MD
[2025-05-31] MEDS ORDERED: ZOFRAN TAB 4 MG PO PRN (08:33)
[2025-05-31] MEDS ORDERED: ALPRAZOLAM ODT PO PRN (08:35)
--- NOTE | 2025-05-31 08:47 | RAD ---
EXAMINATION: CHEST, 1 VIEW HISTORY: Dyspnea; . COMPARISON STUDY: Chest x-ray 05/30/2025 TECHNIQUE: Single portable AP view of the chest FINDINGS: Lungs are expanded. Mild cardiac silhouette enlargement. Normal pulmonary vascular pattern. Postsurgical changes mediastinum. Bones appear intact. IMPRESSION: Mild cardiac silhouette enlargement. THIS IS AN ELECTRONICALLY VERIFIED FINAL REPORT 05/31/2025 8:44 AM - Electronically signed by Mariposa Soto MD
[2025-05-31] MEDS ORDERED: PATIENT'S HOME MEDICATION (Dapagliflozin Propanediol [Farxiga] 10 mg tablet) PO SCH (09:00)
[2025-05-31] MEDS: FARXIGA PO SCH (09:23)
--- NOTE | 2025-05-31 10:34 | DR.H&P ---
H&P History & Physical for Day of: H&P Date: 05/31/25 Chief Complaint Chief Complaint: weakness, dizziness, low BP History of Present Illness History of Present Illness: Patient is a 54-year-old female with a past medical history of CAD, CHF, anemia, anxiety, hypertension, hyperlipidemia and atrial fibrillation presented with worsening weakness and dizziness. She went to her PCP appointment yesterday and was noted to have severely low blood pressure, systolic in the 60s. She was sent to the ER for further evaluation. ER workup included labs which showed slight elevation of creatinine, normal WBC, hemoglobin 11.1. Chest x-ray was concerning for CHF and cardiomegaly. Her troponins x 2 were negative and BNP was normal. She was started on gentle hydration and admitted for further evaluation. All her blood pressure medicines were held. She reports having history of hypertension since last year. She was admitted at [facility] last July due to severe hypotension, required pressors. She has been seeing cardiology in [place]. She is scheduled for a [facility] next month. She currently takes a lot of cardiac medications, no new medicines started recently. She reports going through a lot of stress including grief due to recent passing of her fianc. She says she has not been eating and drinking like she should. Her blood pressure this morning has improved, 107/52 Labs/imaging reviewed: - WBC 5 hemoglobin 11.2 platelet 194 potassium 4 creatinine 0.89 - Troponin x 2 negative, BNP 34.9 - Chest x-ray reviewed Plan: Admit to [facility] with telemetry. Monitor blood pressure. Check orthostatic vitals. Continue gentle hydration. Resume home medications. Hold antihypertensive medications. Replace electrolytes as per protocol. Ambulate as needed. Monitor a.m. labs and imaging. Time spent for clinical assessment, reviewing labs and imaging, physical exam, decision making and documentation greater than 45 minutes. Past Medical History Past Medical History: Anemia, Anxiety, CHF, Coronary Artery Disease, Dyslipidemia and [place] Past Surgical History Surgical History: Angioplasty/Stents, CABG/Valve Surgery, Cholecystectomy, Hysterectomy and Other Family History Family Medical History: Coronary Artery Disease and Hypertension Social History Does patient currently use any type of tobacco product: No Have you used tobacco products in the last 12 months: No Type of Tobacco Use: None Does any household member use tobacco: No Alcohol Use: None Drug Use: None Medications Home Medications: Home Medications Medication Instructions Recorded Confirmed Type ticagrelor 60 mg tablet (Brilinta) 60 mg PO BID 05/30/25 History apixaban 5 mg tablet (Eliquis) 5 mg PO BID 07/16/22 History nitroglycerin 0.4 mg sublingual 0.4 mg sublingual PRN angina 02/26/24 05/30/25 History tablet alprazolam 0.5 mg tablet 0.5 mg PO TID PRN 05/30/25 0 05/30/25 History carvedilol 3.125 mg tablet 3.125 mg PO BID 05/30/25 History furosemide 40 mg tablet 40 mg PO BID 05/30/25 History linaclotide 145 mcg capsule 145 mcg PO QAM 05/30/25 History (Linzess) pantoprazole 40 mg tablet,delayed 40 mg PO QDAY 05/30/25 History release quetiapine 300 mg tablet 300 mg PO QPM 05/30/2505/30 History ranolazine 500 mg tablet,extended 500 mg PO BID 05/30/25 History release,12 hr ropinirole 3 mg tablet 3 mg PO BID 05/30/25 5 History sacubitril 24 mg-valsartan 26 mg 1 tab PO BID 05/30/25 05/30/25 History tablet (Entresto) spironolactone 25 mg tablet 25 mg PO QDAY 05/30/25 History temazepam 30 mg capsule 30 mg PO QPM PRN 05/30/25 History Allergies Allergies Allergy/AdvReac Type Severity Reaction Status Date / Time codeine Allergy Unknown Verified 02/26/24 14:54 latex Allergy Verified 12/06/20 16:48 Labs 05/31/25 05:36 05/31/25 05:36 Labs: Laboratory WBC 5.0 X10^3/uL (3.6-10.0) 05/31/25 05:36 RBC 3.71 X10^6/uL (3.5-5.4) 05/31/25 05:36 Hgb 11.2 g/dL (12.0-16.0) L 05/31/25 05:36 Hct 32.5 % (36.0-47.0) L 05/31/25 05:36 MCV 87.6 fL (80.0-100.0) 05/31/25 05:36 MCH 30.1 pg (27.0-34.0) 05/31/25 05:36 MCHC 34.4 g/dL (33.0-35.0) 05/31/25 05:36 RDW 13.3 % (11.6-16.5) 05/31/25 05:36 Plt Count 194 X10^3/uL (150.0-450.0) 05/31/25 05:36 MPV 8.1 fL (7.4-11.0) 05/31/25 05:36 Neut % (Auto) 51.5 % (42.0-75.0) 05/31/25 05:36 Lymph % (Auto) 35.1 % (21.0-51.0) 05/31/25 05:36 [place] % (Auto) 8.5 % (0.0-13.0) 05/31/25 05:36 Eos % (Auto) 4.5 % (0.9-2.9) H 05/31/25 05:36 Baso % (Auto) 0.4 % (0.2-1.0) 05/31/25 05:36 Neut # (Auto) 2.6 x10^3/uL (2.2-4.8) 05/31/25 05:36 Lymph # (Auto) 1.7 X10^3/uL (1.3-2.9) 05/31/25 05:36 [place] # (Auto) 0.4 x10^3/uL (0.3-0.8) 05/31/25 05:36 Eos # (Auto) 0.2 x10^3/uL (0.0-0.2) 05/31/25 05:36 Baso # (Auto) 0.0 X10^3/uL (0.0-0.1) 05/31/25 05:36 Absolute Nucleated RBC 0.1 /100WBC 05/31/25 05:36 PT 19.5 SECONDS (11.8-14.3) 05/30/25 17:44 INR Target Range - 05/30/25 17:44 INR 1.64 (0.8-1.3) H 05/30/25 17:44 APTT 45.9 SECONDS (22.9-36.5) H 05/30/25 17:44 PTT Comment - 05/30/25 17:44 Sodium 143 mmol/L (136-145) 05/31/25 05:36 Corrected Sodium TNP 05/31/25 05:36 Potassium 4.0 mmol/L (3.5-5.1) 05/31/25 05:36 Chloride 108 mmol/L (98-107) H 05/31/25 05:36 Carbon Dioxide 30.4 mmol/L (21-32) 05/31/25 05:36 BUN 21 mg/dL (7-18) H 05/31/25 05:36 Creatinine 0.89 mg/dL (0.55-1.02) 05/31/25 05:36 Est GFR (MDRD) Af Amer > 60 (>60) 05/31/25 05:36 Est GFR (MDRD) Non-Af > 60 (>60) 05/31/25 05:36 Glucose 89 mg/dL (65-99) 05/31/25 05:36 Calcium 8.5 mg/dL (8.5-10.1) 05/31/25 05:36 Corrected Calcium 9.2 mg/dL (8.5-10.1) 05/31/25 05:36 Magnesium 2.0 mg/dL (2.0-2.9) 05/30/25 17:44 Total Bilirubin 0.30 mg/dL (0.2-1.0) 05/31/25 05:36 AST 19 Units/L (15-37) 05/31/25 05:36 ALT 18 Units/L (12-78) 05/31/25 05:36 Alkaline Phosphatase 93 Units/L (46-116) 05/31/25 05:36 Creatine Kinase 190 Units/L (26-192) 05/30/25 21:05 Troponin I High Sens 4.3 ng/L (4.0-60.0) 05/30/25 21:05 B-Natriuretic Peptide 34.9 pg/mL (0-79) 05/30/25 17:44 Total Protein 6.6 g/dL (6.4-8.2) 05/31/25 05:36 Albumin 3.1 g/dL (3.4-5.0) L 05/31/25 05:36 Globulin 3.5 g/dL (2.5-4.5) 05/31/25 05:36 Albumin/Globulin Ratio 0.9 Ratio (1.1-2.1) L 05/31/25 05:36 Review of Systems Constitutional: Weakness Eyes: No Symptoms Reported ENT: No Symptoms Reported Respiratory: No Symptoms Reported Cardiovascular: Palpitations and Light Headedness Gastrointestinal: No Symptoms Reported Genitourinary: No Symptoms Reported Musculoskeletal: No Symptoms Reported Skin: No Symptoms Reported Neurological: No Symptoms Reported Physical Exam Vital Signs: Vital Signs Temperature 97.6 F Temperature 98.0 F Pulse Rate [Apical] 77 Pulse Rate [Apical] 67 Respiratory Rate 19 Respiratory Rate 19 Blood Pressure [Left Arm] 107/52 Blood Pressure [Left Arm] 100/51 O2 Sat by Pulse Oximetry 98 O2 Sat by Pulse Oximetry 100 Oriented: Normal Throat: Normal Respiratory: Diminished Throughout Cardiovascular: Normal Auscultation: Bowel Sounds: Normal Palpation: Normal Tenderness: Normal Skin: Normal Musculoskeletal: Normal Psychiatric: Normal Mood Description: Calm Affect: Normal Speech Pattern: Clear and Appropriate Assessment/Plan (1) Acute hypotension: Status: Acute (2) Congestive heart failure: Qualifiers: Heart failure type: systolic Heart failure chronicity: chronic Q ualified Code(s): I50.22 - Chronic systolic (congestive) heart failure Status: Chronic (3) Generalized weakness: Status: Acute (4) Atrial fibrillation: Qualifiers: Atrial fibrillation type: unspecified Qualified Code(s): I48.91 - Unspecified atrial fibrillation Status: Chronic (5) Chronic pulmonary congestion: Status: Chronic (6) CAD (coronary artery disease): Qualifiers: Coronary Disease-Associated Artery/Lesion type: [place] artery [place] vs. transplanted heart: [place] heart Associated angina: unspecified whether angina present Qualified Code(s): I25.10 - Atherosclerotic heart disease of [place] coronary artery without angina pectoris Status: Chronic (7) Hypothyroidism: Qualifiers: Hypothyroidism type: acquired Qualified Code(s): E03.9 - Hypothyroidism, unspecified Status: Chronic (8) Depression: Qualifiers: Depression Type: unspecified Qualified Code(s): F32.A - Depression, unspecified Status: Chronic Review H&P Reviewed: Yes Patient was examined?: Yes
[2025-05-31] MEDS: COREG TAB 3.125 MG PO SCH (11:10)
[2025-05-31] MEDS: RANEXA PO SCH (20:58)
[2025-05-31] MEDS: REQUIP PO PRN (20:58)
[2025-05-31] MEDS: CRESTOR TAB 10 MG PO SCH (20:58)
[2025-05-31] MEDS: NORCO 5/325 MG TAB PO PRN (21:00)
[2025-06-01 06:01] LABS: MEAN PLATELET VOLUME 8.3 fL (7.4-11.0); RED CELL DISTRIBUTION WIDTH 13.7 % (11.6-16.5)
[2025-06-01 06:23] LABS: COR CA(FOR HYPOALB) 9.2 mg/dL (8.5-10.1); CREATININE 0.73 mg/dL (0.55-1.02); eGFR NON BLACK RACES > 60 (>60)
[2025-06-01 12:19] VITALS: BP 107/54; PULSE 82; RESP 20; TEMP 98.1; O2SAT 96
== END 2025-06-01 14:20 | disposition home or self-care (01) ==
LOC: MED/SURG 17:22 → ER 17:22 → MED/SURG 21:19
PROVIDERS: ADMIT Internal Medicine; ATTEND Internal Medicine
DX: R94.4 Abnormal results of kidney function studies; F41.8 Other specified anxiety disorders; F32.A Depression, unspecified; R53.1 Weakness; I50.22 Chronic systolic (congestive) heart failure; I95.89 Other hypotension; E03.8 Other specified hypothyroidism; R06.02 Shortness of breath; R79.1 Abnormal coagulation profile; E78.5 Hyperlipidemia, unspecified; R94.31 Abnormal electrocardiogram [ECG] [EKG]; Z65.8 Other specified problems related to psychosocial circumstances; D64.89 Other specified anemias; I48.91 Unspecified atrial fibrillation; G25.81 Restless legs syndrome; R42 Dizziness and giddiness; Z79.01 Long term (current) use of anticoagulants; Z95.2 Presence of prosthetic heart valve; E83.51 Hypocalcemia; E83.42 Hypomagnesemia; I25.810 Atherosclerosis of coronary artery bypass graft(s) without angina pectoris; I11.0 Hypertensive heart disease with heart failure; I25.2 Old myocardial infarction